=== PATIENT | female | born 1940 | race Caucasian/White ===

== ENCOUNTER 2019-12-24 10:43 | Emergency (ER) | payer MEDICARE, MEDICAID ==
[~2019-12-24] VITALS: Ht 161 cm; Wt 54.0 kg
[~2019-12-24 10:43] MED LIST: ALPR.25T PO; HYDR-34 PO; NITR-65 PO; SULF1TAB34 PO; TRM50T PO
--- OUTSIDE RECORDS SUMMARY | 2019-12-24 11:03 | XMS REPORT | Clinical Summary ---
Author Author [facility] Organization [facility] Address Unknown Phone Unavailable Care Team Providers Care Honing Machine Operator Semiautomatic Name Role Phone Charlie Knutson MD PCP Akhil Ford MD Unavailable Unavailable Source Comments Some departments are not documenting in the electronic medical record. If you d o not see the information that you expected, contact Release of Information in [facility] Information Management department at [phone] for further assistan ce in locating additional records.[facility] Allergies Comments Active Allergy Reactions Severity Noted Date Ciprofloxacin RASH Medium 06/05/2015 Cephalexin RASH Medium 06/05/2015 Lovastatin RASH Medium 06/05/2015 Niacin RASH Medium 06/05/2015 Budesonide-Formoterol UNKNOWN Low 06/05/20 15 Medications End Date Status Medication Sig Dispensed Refills Start Date Active HYDROcodone-acetaminophen Take 1 Tab by 0 (+) (LORTAB, NORCO) mouth every 6 10-325 mg tablet hours as needed for Pain Active traMADol (ULTRAM) 50 mg Take 50 mg by 0 tablet mouth every 6 hours as needed for Pain. Active ALPRAZolam (XANAX) 0.25 Take 0.25 mg 0 mg tablet by mouth at bedtime as needed. Active ONDANSETRON HCL (ZOFRAN Take by 0 PO) mouth as Needed. Active Problems No known active problems Family History Relation Name Status Comments Father Mother Social History Date Tobacco Use Types Packs/Day Years Used Current Every Day Smoker Drinks/Week oz/Week Comments Alcohol Use 0 Standard drinks or equivalent 0.0 Not Asked Sex Assigned at Date Recorded Not on file Industry Job Start Date Occupation Not on file Not on file Not on file Travel End Travel History Travel Start No recent travel history available. Last Filed Vital Signs Reading Time Taken Comments Vital Sign 143/67 06/05/2015 12:11 PM [employer] Blood Pressure 109 06/05/2015 12:11 PM [employer] Pulse - - Temperature 20 06/05/2015 12:11 PM [employer] Respiratory Rate 98% 06/05/2015 12:11 PM [employer] Oxygen Saturation - - Inhaled Oxygen Concentration 59 kg (130 lb) 06/05/2015 12:11 PM [employer] Weight 165.1 cm (5' 5") 06/05/2015 12:11 PM [employer] Height 21.63 06/05/2015 12:11 PM [employer] Body Mass Index Plan of Treatment Health Maintenance Due Date Last Done Comments MEDICARE ANNUAL WELLNESS 1942 VISIT DTAP/TDAP VACCINES (1 - 1960 Tdap) HEPATITIS C SCREENING 1960 PHYSICAL (COMPREHENSIVE) 1960 EXAM SHINGLES RECOMBINANT 1992 VACCINE (1 of 2) OSTEOPOROSIS 2007 SCREENING/MONITORING PNEUMONIA (PPSV23) 2007 VACCINE (1 of 1 - PPSV23) INFLUENZA VACCINE 04/05/2020 Results Not on filefrom Last 3 Months Insurance Type Payer Benefit Subscriber ID Effective Phone Address Plan / Dates Group Medicare MEDICARE MEDICARE xxxxxxxxxx 2007-P PART A AND [place] 2013-P [place], [place] [address] Advance Directives 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
--- OUTSIDE RECORDS SUMMARY | 2019-12-24 11:03 | XMS REPORT ---
Author Author [employer] br[employer] [facility] [employer] [facility] Address [address] [address] Care Team Providers Care Sustainability Director Name Role Phone NICKI ZAYAS Vani Unavailable Allergies The data below is from unstructured sources Allergen Type Severity Reaction Last Updated No Known Drug Allergies 01/23/13 Medications No Information Problems The data below is from unstructured sourcesNo Known Problems or Medical conditions.No Known Problems or Medical conditions.No Known Problems or Medical conditions. Procedures The data below is from unstructured sourcesNo known history of procedures. Immunizations No Information Results The data below is from unstructured sourcesNo Known Relevant Diagnostic Tests, Laboratory Data and/or Discharge Summary.No known relevant diagnostic tests, laboratory data and/or discharge summary.No known relevant diagnostic tests, laboratory data and/or discharge summary. Vital Signs The data below is from unstructured sources Vital Response Date/Time Temperature (Fahrenheit) 98 degrees F (97.6 - 99.5) Temperature (Calculated Celsius) 36. 6696 degrees C (36.4 - 37.5) Temperature Source Temporal Pulse Rate (adult) 82 bpm (60 - 90) Respiratory Rate 18 bpm (12 - 24) O2 Sat by Pulse Oximetry 98 % (88 - 100) Blood Pressure 133/77 mm Hg Blood Pressure Mean 95 mm Hg Pain Pain Intensity 0 Height (Feet) 5 feet Height (Inches) 4.00 inches Height (Calculated Centimeters) 162. 549343 cm Weight (Pounds) 125 pounds Weight (Calculated Grams) 21675.047 gm Weight (Calculated Kilograms) 56.699 047 kilograms Calculated BMI 21.09 Interventions No Information Plan of Treatment The data below is from unstructured sourcesNo plan of care. Goals No Information Social History The data below is from unstructured sources History Response Recorde d Date/Time Alcohol Use Denies Use 0 01/23/13 9:05pm Recreational Drug Use N 01/23/13 9:05pm Recent Foreign Travel N 01/23/13 9:05pm Recent Infectious Disease Exposure N 01/23/13 9:05pm Hospitalization with Isolation Denies 01/23/13 9:05pm Functional Status The data below is from unstructured sourcesNo functional status results. Mental Status No Information Encounters No Information Medical Equipment No Information Payers The data below is from unstructured sources Payer Name Policy Number Subscriber Name Relationship Medicaid [place] [id number] Leti Moran Self / Same As Patient Wps Medicare [id number] Leti Moran Self / Same As Patient Advance Directives Directive Response Recor ded Date Advance Directives N 9:05pm Directive Response Recor ded Date Advance Directives N 7:34am Health Care Power of Community Theater Actor N 04/01/13 7:34am Organ Donor N 04/01/13 7 :34am Directive Response Recor ded Date/Time Advance Directives No 4:08pm Health Care Power of Community Theater Actor No 02/04/15 4:08pm Organ Donor No 02/04/15 4:08pm Resuscitation Status Full Code 02/04/15 4:08pm Discharge Instructions No hospital discharge instructions. Additional Source Comments This clinical document has been generated using [employer] software that has been certified by the Office of the National Coordinator for Health Information Technology (ONC 15.99.04.3023.Diam.31.00.0.536781) and the National Committee for Public Health Engineer (NCQA, as an eMeasure certified technology). FOR RECORDS PERTAINING TO PATIENTS WHO ARE OR HAVE BEEN ENROLLED IN A CHEMICAL D EPENDENCY/SUBSTANCE ABUSE PROGRAM, SOME INFORMATION MAY BE OMITTED. This clinica l summary was aggregated from multiple sources. Caution should be exercised in using it in the provision of clinical care. This summary normalizes information from multiple sources, and as a consequence, information in this document may ma terially change the coding, format and clinical context of patient data. In sara tion, data may be omitted in some cases. CLINICAL DECISIONS SHOULD BE BASED ON T HE PRIMARY CLINICAL RECORDS. [employer] provides no warranty or guara ntee of the accuracy or completeness of information in this document.The followi ng information is based on time limited clinical information
--- OUTSIDE RECORDS SUMMARY | 2019-12-24 11:04 | XMS REPORT | Continuity of Care Document ---
Author Organization Unknown Address Unknown Phone Unavailable Allergies Active Description Code Type Severity Reaction Onset Reported/Identified Relationship to Patient Clinical Status Yes bacitracin [id number] Drug Allerg y Unknown HIVES 09/22/2013 Yes lidocaine [id number] Drug Allergy Unknown HIVES 09/22/2013 Yes neomycin [id number] Drug Allergy Unknown HIVES 09/22/2013 Yes polymyxin B [id number] Drug Aller gy Unknown HIVES 09/22/2013 Yes pramoxine [id number] Drug Allergy Unknown HIVES 09/22/2013 Medications There is no data. Problems Date Dx Coded Attending Type Code Diagnosis Diagnosed By 12/02/2014 RHIANNA BOWEN MD Ot V45.4 12/02/2014 RHIANNA BOWEN MD Ot V67.0 9 02/04/2015 HERSON HIGHTOWER MD Ot 682 .3 02/04/2015 HERSON HIGHTOWER MD Ot 989 .5 02/04/2015 HERSON HIGHTOWER MD Ot E000.8 02/04/2015 HERSON HIGHTOWER MD Ot E016.1 02/04/2015 HERSON HIGHTOWER MD Ot E849.0 02/04/2015 HERSON HIGHTOWER MD Ot E905.3 04/04/2015 NICKI ZAYAS MD Ot 723.0 04/23/2015 NICKI ZAYAS MD Ot 723.0 04/30/2015 NICKI ZAYAS MD Ot 723.0 Procedures There is no data. Results There is no data. Encounters ACCT No. Visit Date/Time Discharge Status Pt. Type Provider Facility Loc./Unit Complaint [id number] 07/18/2015 12:41:00 016 23:59:59 CLS Outpatient NICKI ZAYAS MD [facility] [id number] 03/30/2015 16:08:00 015 23:59:59 CLS Outpatient NICKI ZAYAS MD [facility] RAD [id number] 02/04/2015 14:24:00 015 17:34:00 DIS Emergency KATJA CORREA, HERSON Vogel [facility] ER [id number] 10/20/2014 13:55:00 015 23:59:59 CLS Outpatient JESSI CORREA, RHIANNA Cortes [facility] RAD [id number] 03/29/2014 12:08:00 014 23:59:59 CLS Outpatient [id number] 12/21/2013 12:57:00 014 23:59:59 CLS Outpatient [id number] 10/09/2013 09:33:00 014 12:08:00 DIS Emergency [id number] 10/03/2013 08:00:00 014 10:25:00 DIS Inpatient [id number] 09/22/2013 08:55:00 014 23:59:59 CLS Outpatient [id number] 09/02/2013 08:56:00 014 23:59:59 CLS Outpatient [id number] 08/10/2013 12:21:00 014 23:59:59 CLS Outpatient [id number] 08/03/2013 12:44:00 014 23:59:59 CLS Outpatient [id number] 08/01/2013 09:47:00 014 23:59:59 CLS Outpatient [id number] 07/26/2013 15:48:00 014 23:59:59 CLS Outpatient [id number] 04/01/2013 06:04:00 013 09:12:00 DIS Outpatient [id number] 03/30/2013 09:18:00 23:59:59 CLS Outpatient [id number] 03/30/2013 09:10:00 23:59:59 CLS Outpatient [id number] 03/23/2013 14:23:00 23:59:59 CLS Outpatient [id number] 02/16/2013 09:34:00 23:59:59 CLS Outpatient [id number] 02/14/2013 14:52:00 23:59:59 CLS Outpatient [id number] 01/23/2013 20:55:00 23:29:00 DIS Emergency [id number] 12/20/2012 09:50:00 23:59:59 CLS Outpatient
[2019-12-24] MEDS ORDERED: CEPH-507 PO (11:58)
--- NOTE | 2019-12-24 11:58 | ED Integumentary General ---
General Chief Complaint: Bite-Animal/Human/Insect Stated Complaint: WASP STING, R HAND Source: patient Exam Limitations: no limitations History of Present Illness Date Seen by Provider: Dec 24, 2019 Time Seen by Provider: 11:55 Initial Comments Stung by wasp to dorsum of right hand yesterday. Complains of pain swelling and redness to right hand and forearm. No fevers or chills. Allergies and Home Medications Allergies Coded Allergies: Neomycin (Unverified Allergy, Unknown, HIVES, 09/22/13) Polymyxin B (Unverified Allergy, Unknown, HIVES, 09/22/13) Pramoxine (Unverified Allergy, Unknown, HIVES, 09/22/13) bacitracin (Unverified Allergy, Unknown, HIVES, 09/22/13) lidocaine (Unverified Allergy, Unknown, HIVES, 09/22/13) Home Medications Alprazolam 0.25 Mg Tab, 0.25 MG PO TID, (Reported) Cephalexin 500 Mg Capsule, 500 MG PO TID Prescribed by: EDIE BOOTH on 12/24/19 1158 Hydrocodone Bit/Acetaminophen 1 Each Tablet, 1 EACH PO Q4H PRN, (Reported) PRN PAIN Sulfamethoxazole/Trimethoprim 1 Each Tablet, 1 TAB PO BID Prescribed by: HERSON HIGHTOWER on 02/04/15 1723 Tramadol Hcl 50 Mg Tab, 50-100 MG PO TID PRN for PAIN, (Reported) TAKES 1 OR 2 (50MG) TAB PRN PAIN Patient Home Medication List Home Medication List Reviewed: Yes Review of Systems Review of Systems Constitutional: No chills, No fever EENTM: no symptoms reported Respiratory: no symptoms reported Cardiovascular: no symptoms reported Gastrointestinal: no symptoms reported Skin: see HPI All Other Systems Reviewed Negative Unless Noted: Yes Past Sedpkfi-Yieyjz-Eyaiql Hx Immunizations Up To Date Tetanus Booster (TDap): Less than 5yrs Date of Influenza Vaccine: Apr 05, 2013 Seasonal Allergies Seasonal Allergies: No Past Medical History Emphysema Reproductive Disorders: No Kidney Stones, UTI-Chronic Arthritis, Fibromyalgia Cataract Hearing Impairment: Hard of Hearing Anxiety Adverse Reaction/Blood Tranf: No Family Medical History Cancer 03 FATHER 03 MOTHER 09 BROTHER 09 SISTER Cancer of colon 09 SISTER Congenital heart disease 09 BROTHER Family history: Arthritis 03 FATHER 03 MOTHER 09 BROTHER 09 SISTER Family history: Asthma 09 SISTER Family history: Diabetes mellitus 09 BROTHER Family history: Gastrointestinal disease 03 FATHER 09 BROTHER Family history: Hypertension 03 MOTHER 09 BROTHER Heart disease 03 MOTHER 09 BROTHER History of - respiratory disease 03 FATHER 03 MOTHER 09 BROTHER Myocardial infarction 03 MOTHER Prostate cancer 03 FATHER 09 BROTHER Stroke 03 MOTHER No Family History of: Abdominal aortic aneurysm Alcoholism Congestive heart failure Dementia Family history: Allergy Family history: Alzheimer's disease Family history: Breast disease Family history: Cardiovascular disease Family history: Thyroid disorder History of - anemia Kidney disease Parkinson's disease Seizure disorder Physical Exam Vital Signs Vital Signs - First Documented 12/24/19 10:50 Temp 36.6 Pulse 83 Resp 18 B/P (MAP) 158/61 (93) Pulse Ox 95 O2 Delivery Room Air Capillary Refill : General Appearance: WD/WN, no apparent distress Neck: supple Cardiovascular: regular rate, rhythm Respiratory: lungs clear Neurologic/Psychiatric: alert, normal mood/affect Skin: warm/dry Skin Problem Location: upper extremities Skin Problem Character: erythema Comments Tender red and swollen from dorsum of right hand to mid forearm. No streaking. No fevers or chills. Progress/Results/Core Measures Results/Orders My Orders Orders - EDIE BOOTH MD Ceftriaxone For Im Use (Rocephin For Im (12/24/19 12:00) Prednisone Tablet (Deltasone Tablet) (12/24/19 12:00) Water (Sterile) For Injection (Sterile W (12/24/19 12:11) Vital Signs/I&O 12/24/19 10:50 Temp 36.6 Pulse 83 Resp 18 B/P (MAP) 158/61 (93) Pulse Ox 95 O2 Delivery Room Air Progress Progress Note : Time: 11:56 Progress Note Suspect inflammatory localized reaction to wasp sting venom. We'll cover with Keflex for possible cellulitis. Advised to keep hand elevated as much as possible. Departure Impression Primary Impression: Insect bites Additional Impression: Cellulitis Disposition: 01 HOME, SELF-CARE Condition: Stable Departure-Patient Inst. Decision time for Depature: 11:57 Referrals: NICKI ZAYAS MD (PCP/Family) Primary Care Physician Patient Instructions: Insect Bites and Stings (DC) Scripts Cephalexin (Keflex) 500 Mg Capsule 500 MG PO TID for 21 Days, CAP Prov: EDIE BOOTH MD 12/24/19 EDIE BOOTH MD Dec 24, 2019 11:58
[2019-12-24] MEDS ORDERED: predniSONE 20 MG TAB PO ONE (12:00)
[2019-12-24] MEDS ORDERED: cefTRIAXone 1,000 MG/2.86 ml vial (IM ONLY) IM SCH (12:00)
[2019-12-24] MEDS ORDERED: WATER (STERILE) FOR INJECTION 10 ML ONE (12:11)
[2019-12-24 12:25] VITALS: BP 158/61
== END 2019-12-24 12:26 | disposition home or self-care (01) ==
LOC: EDUNIT# 10:43 → ER 10:44
DX: T63.461A Toxic effect of venom of wasps, accidental (unintentional), initial encounter (principal); L03.113 Cellulitis of right upper limb; F41.9 Anxiety disorder, unspecified; Z88.4 Allergy status to anesthetic agent; Z88.8 Allergy status to other drugs, medicaments and biological substances; Z80.0 Family history of malignant neoplasm of digestive organs; Z82.49 Family history of ischemic heart disease and other diseases of the circulatory system; Z80.42 Family history of malignant neoplasm of prostate
CPT/HCPCS: 99284

== ENCOUNTER 2021-07-24 18:44 | Inpatient (IN) | payer MEDICARE, MEDICAID ==
[~2021-07-24] VITALS: Ht 162.5 cm; Wt 46.8 kg
[~2021-07-24 18:44] MED LIST changes: +CEPH-507 PO
[2021-07-24] MEDS ORDERED: NS IV 1000 ML 1,000 ML IV SCH (19:00)
[2021-07-24 19:21] LABS: BASOPHILS % (AUTO) 0 % (0-10); EOSINOPHILS % (AUTO) 0 % (0-10); HEMATOCRIT 35 % (35-52); LYMPHOCYTES # (AUTO) 1.5 10^3/uL (1.0-4.0); LYMPHOCYTES % (AUTO) 8 % (12-44); MEAN CORPUSCULAR HEMOGLOBIN 31 pg (25-34); MEAN CORPUSCULAR HGB CONC 34 g/dL (32-36); MEAN CORPUSCULAR VOLUME 90 fL (80-99); MEAN PLATELET VOLUME 9.9 fL (9.0-12.2); MONOCYTES # (AUTO) 1.1 10^3/uL (0.0-1.0); MONOCYTES % (AUTO) 6 % (0-12); NEUTROPHILS # (AUTO) 16.7 10^3/uL (1.8-7.8); NEUTROPHILS % (AUTO) 86 % (42-75); PLATELET COUNT 467 10^3/uL (130-400); WHITE BLOOD COUNT 19.4 10^3/uL (4.3-11.0)
[2021-07-24 19:26] LABS: INR 1.2 (0.8-1.4); PROTHROMBIN TIME PATIENT 15.3 SEC (12.2-14.7)
[2021-07-24 19:27] LABS: ALBUMIN 3.6 GM/DL (3.2-4.5); POTASSIUM 3.6 MMOL/L (3.6-5.0)
[2021-07-24 19:28] LABS: CALCIUM 9.2 MG/DL (8.5-10.1)
[2021-07-24 19:29] LABS: TOTAL PROTEIN 7.7 GM/DL (6.4-8.2)
[2021-07-24 19:31] LABS: BILIRUBIN,TOTAL 0.8 MG/DL (0.1-1.0)
[2021-07-24 19:33] LABS: CREATININE SERUM 0.64 MG/DL (0.60-1.30)
[2021-07-24 19:41] LABS: LYMPHOCYTES % (MANUAL) 8 %; MONOCYTES % (MANUAL) 8 %; NEUTROPHILS % (MANUAL) 84 %
[2021-07-24 19:42] LABS: RBC MORPH NORMAL
--- NOTE | 2021-07-24 20:10 | Diagnostic Imaging Report ---
INDICATION: Shortness of breath. COMPARISON: None. EXAMINATION: Single view of the chest. FINDINGS: Probable infiltrate developing in the right base. Left lung is clear. The heart is normal. There is no pneumothorax but osseous structures are normal. IMPRESSION: Suspect developing pneumonia in right lower lobe. Dictated by: Dictated on workstation # [id number]
--- NOTE | 2021-07-24 20:33 | ED General ---
General Chief Complaint: COVID19 Suspect/Confirmed Stated Complaint: BURNING WITH URINATION Nursing Triage Note: PT TO [facility] BY [facility] FROM HOME WITH COMPLAINT OF SOA, WEAKNESS, INCONTINENT, CLOGGED NOSE FOR TWO WEEKS. Source of Information: Patient, EMS, Family (sister) Exam Limitations: Physical Impairments History of Present Illness Date Seen by Provider: Jul 24, 2021 Time Seen by Provider: 18:40 Initial Comments Patient is a 80-year-old female who presents to the emergency department today with a chief complaint of cough, generalized fatigue malaise, a little shortness of breath. Her nephew apparently called the ambulance at the direction of her niece today. Her cough has been going on for about 2 weeks, intermittently productive, she does not really know what it looks like. She is a smoker. She has had a COVID-vaccine sometime prior to [facility]. She has not really been taking anything for the cough. She does state that she has had a little burning with urination. She is a poor historian secondary to fatigue/malaise. She talks to me with her eyes closed. She does not take any significant prescribed medications other than the hydrocodone and Xanax for anxiety. She is a patient of [facility] clinic, Dr. Fox. Her niece reports her most recent visit was July 14. room air sats 87-88% on arrival Patient lives alone. She continues to drive. She denies abdominal pain, nausea vomiting or diarrhea. She does have what she thinks is her "rectum falling out" versus hemorrhoids. Her sister states she has been using hemorrhoid pads to clean herself. Unknown how long this has been there Sister reports she is lost a significant amount of weight recently. All other review of systems reviewed and negative except as stated Timing/Duration: Other (2 weeks) Associated Systoms: Cough, Loss of Appetite, Malaise, Weakness Allergies and Home Medications Allergies Coded Allergies: bacitracin (Unverified Allergy, Unknown, HIVES, 09/22/13) lidocaine (Unverified Allergy, Unknown, HIVES, 09/22/13) neomycin (Unverified Allergy, Unknown, HIVES, 09/22/13) polymyxin B (Unverified Allergy, Unknown, HIVES, 09/22/13) pramoxine (Unverified Allergy, Unknown, HIVES, 09/22/13) Patient Home Medication List Home Medication List Reviewed: Yes Alprazolam (Alprazolam) 0.5 Mg Tablet, 0.5 MG PO TID PRN for ANXIETY, (Reported) Entered as Reported by: MELISA HYDE on 07/25/211105 Last Action: Reviewed Hydrocodone/Acetaminophen (Hydrocodone-Acetamin 7.5-325) 1 Each Tablet, 1 EA PO EVERY 3 HOURS PRN for PAIN-MODERATE (5-7), (Reported) Entered as Reported by: MELISA HYDE on 07/25/211105 Last Action: Reviewed Discontinued Medications Alprazolam (Xanax Tablet) 0.25 Mg Tab, 0.25 MG PO TID, (Reported) Discontinued Reason: Referral/FU Appt-Addtl Entered as Reported by: NASIM RESENDEZ on 01/23/132111 Last Action: Discontinued Cephalexin (Keflex) 500 Mg Capsule, 500 MG PO TID Discontinued Reason: Referral/FU Appt-Addtl Prescribed by: EDIE BOOTH on 12/24/19 1158 Last Action: Discontinued Hydrocodone Bit/Acetaminophen (Lortab 7.5 Mg Tablet) 1 Each Tablet, 1 EACH PO Q4H PRN, (Reported) Discontinued Reason: Referral/FU Appt-Addtl Entered as Reported by: NASIM RESENDEZ on 01/23/132111 Last Action: Discontinued Sulfamethoxazole/Trimethoprim (Bactrim 400-80 Mg Tablet) 1 Each Tablet, 1 TAB PO BID Discontinued Reason: Referral/FU Appt-Addtl Prescribed by: HERSON HIGHTOWER on 02/04/15 1723 Last Action: Discontinued Tramadol Hcl (Ultram) 50 Mg Tab, 50-100 MG PO TID PRN for PAIN, (Reported) Discontinued Reason: Referral/FU Appt-Addtl Entered as Reported by: NASIM RESENDEZ on 01/23/132111 Last Action: Discontinued Review of Systems Review of Systems Constitutional: see HPI, malaise, weakness EENTM: no symptoms reported Respiratory: cough, short of breath Cardiovascular: no symptoms reported Gastrointestinal: other (sister reports "rectum falling out" or hemmorhoids "for a while") Genitourinary: dysuria : No Musculoskeletal: other (chronic back pain) Skin: other (sister reports "bed sores") All Other Systems Reviewed Negative Unless Noted: Yes Past Bkcmagx-Bbnjod-Jcdboc Hx Patient Social History Tobacco Use?: Yes Tobacco type used: Cigarettes Smoking Status: Current Everyday Smoker Use of E-Cig and/or Vaping dev: No Substance use?: No Alcohol Use?: No Pt feels they are or have been: No Immunizations Up To Date Tetanus Booster (TDap): Less than 5yrs First/Initial COVID19 Vaccinat: SPRING 2020 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: [employer] Seasonal Allergies Seasonal Allergies: No Past Medical History Emphysema Reproductive Disorders: No Kidney Stones, UTI-Chronic Arthritis, Fibromyalgia Cataract Hearing Impairment: Hard of Hearing Anxiety Adverse Reaction/Blood Tranf: No Family Medical History Cancer 03 FATHER 03 MOTHER 09 BROTHER 09 SISTER Cancer of colon 09 SISTER Congenital heart disease 09 BROTHER Family history: Arthritis 03 FATHER 03 MOTHER 09 BROTHER 09 SISTER Family history: Asthma 09 SISTER Family history: Diabetes mellitus 09 BROTHER Family history: Gastrointestinal disease 03 FATHER 09 BROTHER Family history: Hypertension 03 MOTHER 09 BROTHER Heart disease 03 MOTHER 09 BROTHER History of - respiratory disease 03 FATHER 03 MOTHER 09 BROTHER Myocardial infarction 03 MOTHER Prostate cancer 03 FATHER 09 BROTHER Stroke 03 MOTHER No Family History of: Abdominal aortic aneurysm Alcoholism Congestive heart failure Dementia Family history: Allergy Family history: Alzheimer's disease Family history: Breast disease Family history: Cardiovascular disease Family history: Thyroid disorder History of - anemia Kidney disease Parkinson's disease Seizure disorder Physical Exam Vital Signs Vital Signs - First Documented 07/24/21 18:47 Pulse 87 Resp 16 B/P (MAP) 127/71 (89) Pulse Ox 97 O2 Delivery Nasal Cannula O2 Flow Rate 2.00 Capillary Refill : Less Than 3 Seconds Height, Weight, BMI Height: 5'4.00" Weight: 125lbs. oz. 56.277022yd; 17.00 BMI Method:Stated General Appearance: Chronically ill, Cachetic Eyes: Bilateral Eye Other (speaks to me with eyes closed; appears somnolent/ill) HEENT: Other (mucous membranes a little dry appearing; edentulous) Neck: Supple Respiratory: Chest Non Tender, No Accessory Muscle Use, No Respiratory Distress, Other (coarse wet cough; no wheezing or ronchi noted. no labored breathing) Cardiovascular: Regular Rate, Rhythm, Normal Peripheral Pulses, Other (cap refill is 2sec; poor skin turgor) Gastrointestinal: Normal Bowel Sounds, Non Tender, Soft Rectal: Other (patient has a large fleshy mass hanging out of the rectum, slightly smaller than a golf ball; bloody, irregular surface, firm to touch. I can get a finger anteriorly past this mass) Extremity: Normal Capillary Refill, Normal Inspection, Normal Range of Motion, Non Tender, No Pedal Edema Neurologic/Psychiatric: Alert, Oriented x3, No Motor/Sensory Deficits, Other (d epressed affect) Skin: Normal Color, Warm/Dry, Other (a couple of small areas of erythema on the sacrum, no open wounds) Focused Exam Lactate Level 07/24/21 19:14: Lactic Acid Level 0.90 Lactic Acid Level Laboratory Tests Test 07/24/21 19:14 Lactic Acid Level 0.90 MMOL/L (0.50-2.00) Progress/Results/Core Measures Suspected Sepsis SIRS Temperature: Pulse: 87 Respiratory Rate: 16 Blood Pressure 127 /71 Mean: 89 07/24/21 19:14: Lactic Acid Level 0.90 Laboratory Tests 07/24/21 18:50: INR Comment 1.2 Results/Orders Lab Results Laboratory Tests Test 07/24/21 18:50 07/24/21 19:14 07/24/21 20:21 Range/Units White Blood Count 19.4 H 4.3-11.0 10^3/uL Red Blood Count 3.91 3.80-5.11 10^6/uL Hemoglobin 12.0 11.5-16.0 g/dL Hematocrit 35 35-52 % Mean Corpuscular Volume 90 80-99 fL Mean Corpuscular Hemoglobin 31 25-34 pg Mean Corpuscular Hemoglobin Concent 34 32-36 g/dL Red Cell Distribution Width 12.6 10.0-14.5 % Platelet Count 467 H 130-400 10^3/uL Mean Platelet Volume 9.9 9.0-12.2 fL Immature Granulocyte % (Auto) 0 % Neutrophils (%) (Auto) 86 H 42-75 % Lymphocytes (%) (Auto) 8 L 12-44 % Monocytes (%) (Auto) 6 0-12 % Eosinophils (%) (Auto) 0 0-10 % Basophils (%) (Auto) 0 0-10 % Neutrophils # (Auto) 16.7 H 1.8-7.8 10^3/uL Lymphocytes # (Auto) 1.5 1.0-4.0 10^3/uL Monocytes # (Auto) 1.1 H 0.0-1.0 10^3/uL Eosinophils # (Auto) 0.0 0.0-0.3 10^3/uL Basophils # (Auto) 0.0 0.0-0.1 10^3/uL Immature Granulocyte # (Auto) 0.1 0.0-0.1 10^3/uL Neutrophils % (Manual) 84 % Lymphocytes % (Manual) 8 % Monocytes % (Manual) 8 % Blood Morphology Comment NORMAL Prothrombin Time 15.3 H 12.2-14.7 SEC INR Comment 1.2 0.8-1.4 Activated Partial Thromboplast Time 39 H 24-35 SEC Sodium Level 133 L 135-145 MMOL/L Potassium Level 3.6 3.6-5.0 MMOL/L Chloride Level 94 L 98-107 MMOL/L Carbon Dioxide Level 23 21-32 MMOL/L Anion Gap 16 H 5-14 MMOL/L Blood Urea Nitrogen 11 7-18 MG/DL Creatinine 0.64 0.60-1.30 MG/DL Estimat Glomerular Filtration Rate 90 BUN/Creatinine Ratio 17 Glucose Level 121 H 70-105 MG/DL Calcium Level 9.2 8.5-10.1 MG/DL Corrected Calcium 9.5 8.5-10.1 MG/DL Total Bilirubin 0.8 0.1-1.0 MG/DL Aspartate Amino Transf (AST/SGOT) 13 5-34 U/L Alanine Aminotransferase (ALT/SGPT) 8 0-55 U/L Alkaline Phosphatase 88 40-136 U/L C-Reactive Protein High Sensitivity 24.48 H 0.00-0.50 MG/DL Total Protein 7.7 6.4-8.2 GM/DL Albumin 3.6 3.2-4.5 GM/DL Procalcitonin 0.07 <0.10 NG/ML Influenza Type A (RT-PCR) Not Detected Not Detecte Influenza Type B (RT-PCR) Not Detected Not Detecte SARS-CoV-2 RNA (RT-PCR) Not Detected Not Detecte Lactic Acid Level 0.90 0.50-2.00 MMOL/L Urine Color YELLOW Urine Clarity CLEAR Urine pH 6.0 5-9 Urine Specific Sunburst 1.015 L 1.016-1.022 Urine Protein NEGATIVE NEGATIVE Urine Glucose (UA) NEGATIVE NEGATIVE Urine Ketones TRACE H NEGATIVE Urine Nitrite POSITIVE H NEGATIVE Urine Bilirubin NEGATIVE NEGATIVE Urine Urobilinogen 0.2 < = 1.0 MG/DL Urine Leukocyte Esterase TRACE H NEGATIVE Urine RBC (Auto) TRACE-I H NEGATIVE Urine RBC NONE /HPF Urine WBC 0-2 /HPF Urine Squamous Epithelial Cells NONE /HPF Urine Renal Epithelial Cells NONE /HPF Urine Crystals NONE /LPF Urine Bacteria LARGE H /HPF Urine Casts NONE /LPF Urine Mucus NEGATIVE /LPF Urine Yeast LARGE H /HPF Urine Culture Indicated YES Micro Results Microbiology 07/24/21 Urine Culture - Final, Complete Klebsiella pneumoniae 07/24/21 Blood Culture - Preliminary, Resulted No growth My Orders Orders - VANDANA BULL MD Cbc With Automated Diff (07/24/21 18:56) Comprehensive Metabolic Panel (07/24/21 18:56) Blood Culture (07/24/21 18:56) Sputum Culture (07/24/21 18:56) Urinalysis (07/24/21 18:56) Urine Culture (07/24/21 18:56) Protime With Inr (07/24/21 18:56) Partial Thromboplastin Time (07/24/21 18:56) Chest 1 View, Ap/Pa Only (07/24/21 18:56) Ed Iv/Invasive Line Start (07/24/21 18:56) Ed Iv/Invasive Line Start (07/24/21 18:56) Vital Signs Adult Sepsis Patie Q15M (07/24/21 18:56) O2 (07/24/21 18:56) Remove Rings In Anticipation O (07/24/21 18:56) Lactic Acid Analyzer (07/24/21 18:56) Procalcitonin (Pct) (07/24/21 18:56) Hs C Reactive Protein (07/24/21 18:56) Covid 19 Inhouse Test (07/24/21 18:56) Influenza A And B By Pcr (07/24/21 18:56) Isolation Central Supply Req (07/24/21 18:56) Ns Iv 1000 Ml (Sodium Chloride 0.9%) (07/24/21 19:00) Manual Differential (07/24/21 18:50) Diaz Cath (07/24/21 20:28) Ceftriaxone 1 Gm Pre-Mix (Rocephin 1 Gm (07/24/21 20:45) Azithromycin Injection (Zithromax Inject (07/24/21 20:45) Ed Admission (Communication) (07/24/21 21:26) Vital Signs/I&O 07/24/21 07/24/21 18:47 19:00 Pulse 87 Resp 16 B/P (MAP) 127/71 (89) Pulse Ox 97 O2 Delivery Nasal Cannula Nasal Cannula O2 Flow Rate 2.00 2.00 Capillary Refill : Less Than 3 Seconds Blood Pressure Mean: 89 Diagnostic Imaging Diagonstic Imaging: Xray Plain Films/CT/US/NM/MRI: chest Comments [facility], [place] NAME: GIOVANNI ESCOBEDO [facility] REC#: [id number] PT STATUS: REG ER : 1940 PHYSICIAN: VANDANA BULL MD ADMIT DATE: 07/24/21/ER Signed Date of Exam:07/24/21 CHEST 1 VIEW, AP/PA ONLY INDICATION: Shortness of breath. COMPARISON: None. EXAMINATION: Single view of the chest. FINDINGS: Probable infiltrate developing in the right base. Left lung is clear. The heart is normal. There is no pneumothorax but osseous structures are normal. IMPRESSION: Suspect developing pneumonia in right lower lobe. Dictated by: Dictated on workstation # [id number] Dict: 07/24/211955 Trans: 07/24/212009 [id number] Interpreted by: SANDEEP BROOKS Electronically signed by: SANDEEP BROOKS 07/24/212009 Departure Communication (Admissions) Time/Spoke to Admitting Phy: 21:[address] Valencia Time/Spoke to Consulting Phy: 21:[address] Barba, clear liquids until 2am, then NPO; would like CT Abd/pelvis with IV contrast in am Impression Primary Impression: Community acquired pneumonia Qualified Codes: J18.9 - Pneumonia, unspecified organism Additional Impressions: UTI (urinary tract infection) Qualified Codes: N30.00 - Acute cystitis without hematuria Rectal mass Disposition: ADMITTED INPATIENT Condition: Stable Admissions Decision to Admit Reason: Admit from ER (General) Decision to Admit/Date: Jul 24, 2021 Time/Decision to Admit Time: 21:26 Departure-Patient Inst. Referrals: NICKI ZAYAS MD (PCP/Family) Primary Care Physician Copy Copies To 1: MELISA FOX KATHRYN M MD Jul 24, 2021 20:33
[2021-07-24 20:35] LABS: BILIRUBIN,URINE NEGATIVE (NEGATIVE); CLARITY,URINE CLEAR; COLOR,URINE YELLOW; GLUCOSE, URINE (UA) NEGATIVE (NEGATIVE); KETONES,URINE TRACE (NEGATIVE); LEUKOCYTE ESTERASE ,URINE TRACE (NEGATIVE); NITRITE,URINE POSITIVE (NEGATIVE); PROTEIN,URINE NEGATIVE (NEGATIVE)
[2021-07-24] MEDS ORDERED: cefTRIAXone 1 GM PRE-MIX 50 ML IV ONE (20:45)
[2021-07-24] MEDS ORDERED: AZITHROMYCIN INJECTION 500 MG in NS (IVPB) 250 ML IV ONE (20:45)
[2021-07-24 20:48] LABS: WBC,URINE 0-2 /HPF
[2021-07-24 20:51] LABS: BACTERIA,URINE LARGE /HPF
[2021-07-24 20:52] LABS: YEAST,URINE LARGE /HPF
--- NOTE | 2021-07-24 22:25 | CONSULTATION REPORT ---
DATE OF SERVICE: ATTENDING PRIMARY CARE PHYSICIAN: Dr. Charlie Knutson. ADMITTING PHYSICIAN: Dr. Viry Valenica. HISTORY OF PRESENT ILLNESS: The patient is a 80-year-old female, who presented to the Emergency Department by EMS after family had seen her at her home and she complained of cough as well as shortness of breath. She states that she has had a cough for approximately two weeks with intermittent productivity of some sputum. She does have a history of smoking as well as COPD. She did have a COVID vaccine prior to Thanksgiving with the Abbe and Abbe regimen. She did have a chest x-ray performed, which did show consolidation consistent with a right lower lobe pneumonia. On further examination, she was found to have an exophytic mass of the anus a few centimeters in size, which appeared irritated; however, no bleeding. She states that she has had issues with hemorrhoids and felt that this was worsening of her hemorrhoids and reports that has been continuous wetness and drainage and pain and has been using pads more recently. She did have a colonoscopy in 2012 after developing abdominal pain and a CT scan was performed, which did show some thickening of the transverse and descending colon, which may have been consistent with some form of colitis and she underwent a colonoscopy in 03/2013, which did show chronic stage II external and internal hemorrhoids; however, no mucosal inflammatory changes as well as no neoplasms. She does have a strong family history for cancers with her mother having breast cancer and a father as well as two sisters with colon cancer and another sister with ovarian cancer. She does report intermittent red blood per rectum rectal bleeding, no dark tarry stools. PAST MEDICAL HISTORY: COPD, chronic urinary tract infection, fibromyalgia, degenerative joint disease, nephrolithiasis, bilateral cataracts, anxiety, peptic ulcer disease. PAST SURGICAL HISTORY: Open appendectomy in 81, total hysterectomy in 84, bilateral breast biopsy, laparoscopic cholecystectomy in 90s. ALLERGIES: NEOMYCIN, POLYMYXIN B, PRAMOXINE, BACITRACIN, LIDOCAINE. MEDICATIONS: Alprazolam 0.25 mg t.i.d., Keflex 500 mg t.i.d., hydrocodone p.r.n., Bactrim b.i.d., tramadol p.r.n. SOCIAL HISTORY: Positive smoke 45 pack years. Negative alcohol. FAMILY HISTORY: Mother, breast cancer. Father, two sisters, colon cancer. Sister, ovarian cancer. VITAL SIGNS: Blood pressure 127/71, pulse 87, respirations 16, pulse ox 97% on 2 liters nasal cannula. REVIEW OF SYSTEMS: This is a slightly thin-appearing female with some cough and exertional shortness of breath. She is experiencing some intermittent sputum production. No hemoptysis. No nausea or vomiting. States that she has been having bowel movements; however, has had irritation in the anal region with a constant wetness, which she felt was worsening hemorrhoids. She does report intermittent red blood per rectum, no dark tarry stools. No fever, chills, no recent inadvertent weight loss. All other review of systems negative. PHYSICAL EXAMINATION: CHEST: Distant breath sounds and scattered wheezes bilaterally. Decreased breath sounds at right lower lung. HEART: Regular, no murmurs. EXTREMITIES: No lower extremity edema, negative Homans sign. HEENT: No scleral icterus. NECK: No cervical lymphadenopathy. ABDOMEN: Soft, nontender, nondistended. No hernias. 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 LABORATORY DATA: WBC 19.4, hemoglobin 12.0, hematocrit 35, platelets 467. BUN 11, creatinine 0.64. Liver function enzymes normal. Urinalysis, positive nitrite, trace leukocyte esterase, large bacteria, and large yeast. ASSESSMENT AND PLAN: A 80-year-old female with right lower lobe pneumonia and exacerbation of COPD. 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 We will get a biopsy of the lesion as well as a colonoscopy to evaluate the entirety of her rectum and colon due to the lesion as well as a strong family history of colon, breast as well as ovarian cancer. If this is an anal canal cancer, she would likely need the William protocol with chemotherapy and radiation. If there is an incomplete response to the William protocol, she may be a candidate for a repeat round of chemotherapy and radiation, however, again if the lesion persists, then she may require an abdominoperineal resection however appears to be a poor surgical candidate. Job ID: [id number] DocumentID: [id number] Dictated Date: 07/24/2021 21:44:57 Dock Loader Date: 07/24/2021 22:22:31 Dictated By: SELENE GUERIN MD MTDD
[2021-07-24] MEDS ORDERED: diphenhydrAMINE 25 MG TAB (BENADRYL) PO PRN (22:30)
[2021-07-24] MEDS ORDERED: BISACODYL 10 MG SUPP (DULCOLAX) PR PRN (22:30)
[2021-07-24] MEDS ORDERED: ANTACID SUSP 30 ML UDC (MYLANTA) PO PRN (22:30)
[2021-07-24] MEDS ORDERED: polyethylene glycoL POWDER 17 GM (MIRALAX) PACK PO PRN (22:30)
[2021-07-24] MEDS ORDERED: MELATONIN 3 MG TABLET PO PRN (22:30)
[2021-07-24] MEDS ORDERED: HALOPERIDOL 5 MG/ML (HALDOL) VIAL IM PRN (22:30)
[2021-07-24] MEDS ORDERED: ACETAMINOPHEN 325 MG TABLET PO PRN (22:30)
[2021-07-24] MEDS ORDERED: morphine INJ 4 MG/ML 1 ML (VIAL/SYRINGE) IV PRN (22:30)
[2021-07-24] MEDS ORDERED: CALCIUM CARBONATE 500 MG (TUMS) TAB.CHEW PO PRN (22:30)
[2021-07-24] MEDS ORDERED: ONDANSETRON 4 MG/2 ML (SDV) Z0FRAN IV PRN (22:30)
[2021-07-24] MEDS ORDERED: guaiFENesin/CODEINE (ROBITUSSIN AC) 10ML UDC PO PRN (22:30)
[2021-07-24] MEDS ORDERED: ONDANSETRON 4 MG (ZOFRAN) ORAL DISSOLVE TAB PO PRN (22:30)
[2021-07-24] MEDS ORDERED: LORazepam INJ 2 MG/ML (ATIVAN) VIAL IVP PRN (22:30)
[2021-07-24] MEDS ORDERED: MILK OF MAGNESIA 400 MG/5 ML 30 ML UDC PO PRN (22:30)
[2021-07-24] MEDS ORDERED: WATER (STERILE) FOR INJ 10 ML BTL INJ SCH (22:30)
[2021-07-24] MEDS ORDERED: NALOXONE 0.4 MG/ML 1 ML (NARCAN) VIAL IV PRN (22:30)
[2021-07-24] MEDS ORDERED: diphenhydrAMINE 50 MG/ML INJ (BENADRYL) IVP PRN (22:30)
[2021-07-24] MEDS ORDERED: LACTULOSE SYRUP 10GM/15ML (ENULOSE) 30ML UDC PO PRN (22:30)
[2021-07-24] MEDS ORDERED: ZIPRASIDONE 20 MG INJ (GEODON) VIAL IM PRN (22:30)
[2021-07-24 22:42] VITALS: BP 114/57
[2021-07-24] MEDS: NS IV 1000 ML 1,000 ML IV SCH (22:47)
[2021-07-25] VITALS (10 sets, daily range): BP systolic 115–133; BP diastolic 57–66
[2021-07-25 05:44] LABS: BASOPHILS % (AUTO) 0 % (0-10); EOSINOPHILS % (AUTO) 0 % (0-10); HEMATOCRIT 34 % (35-52); HEMOGLOBIN 11.3 g/dL (11.5-16.0); LYMPHOCYTES # (AUTO) 1.9 10^3/uL (1.0-4.0); LYMPHOCYTES % (AUTO) 12 % (12-44); MEAN CORPUSCULAR HEMOGLOBIN 31 pg (25-34); MEAN CORPUSCULAR HGB CONC 34 g/dL (32-36); MEAN CORPUSCULAR VOLUME 91 fL (80-99); MEAN PLATELET VOLUME 9.5 fL (9.0-12.2); MONOCYTES % (AUTO) 7 % (0-12); NEUTROPHILS # (AUTO) 12.6 10^3/uL (1.8-7.8); NEUTROPHILS % (AUTO) 81 % (42-75); PLATELET COUNT 417 10^3/uL (130-400); WHITE BLOOD COUNT 15.6 10^3/uL (4.3-11.0)
[2021-07-25 06:16] LABS: ALBUMIN 3.2 GM/DL (3.2-4.5)
[2021-07-25 06:17] LABS: POTASSIUM 3.2 MMOL/L (3.6-5.0)
[2021-07-25 06:18] LABS: CALCIUM 8.6 MG/DL (8.5-10.1)
[2021-07-25 06:19] LABS: TOTAL PROTEIN 6.6 GM/DL (6.4-8.2)
[2021-07-25 06:21] LABS: BILIRUBIN,TOTAL 0.6 MG/DL (0.1-1.0)
[2021-07-25 06:23] LABS: CREATININE SERUM 0.57 MG/DL (0.60-1.30)
[2021-07-25] MEDS: cefTRIAXone 1 GM PRE-MIX 50 ML IV SCH (08:39)
[2021-07-25] MEDS: DOCUSATE SODIUM 100 MG (COLACE) CAP PO SCH ×2 (08:40→21:05)
[2021-07-25] MEDS: SENNOSIDES 8.6 MG (SENOKOT) TAB PO SCH ×2 (08:40→21:05)
[2021-07-25] MEDS: ENOXAPARIN 30 MG/0.3 ML (LOVENOX) SYR SC SCH (08:41)
[2021-07-25] MEDS: BENZONATATE 100 MG (TESSALON) CAPSULE PO SCH ×3 (08:41→21:05)
[2021-07-25] MEDS ORDERED: ALPR0.5T7 PO (11:06)
[2021-07-25] MEDS ORDERED: HYDR-3817 PO (11:06)
[2021-07-25] MEDS ORDERED: LACTATED RINGERS 1,000 ML IV PRN (11:45)
[2021-07-25] MEDS ORDERED: BUPIVACAINE 0.5% 30 ML (SENSORCAINE) VIAL ONE (11:48)
[2021-07-25] MEDS ORDERED: ONDANSETRON 4 MG/2 ML (SDV) Z0FRAN ONE (11:56)
[2021-07-25] MEDS ORDERED: MIDAZOLAM 2 MG/2 ML (VERSED) VIAL ONE (11:56)
[2021-07-25] MEDS ORDERED: proPOfol 200 MG/20 ML (DIPRIVAN) VIAL IV ONE (11:56)
[2021-07-25] MEDS ORDERED: LIDOCAINE PF 2% 5 ML (XYLOCAINE) VIAL ONE (11:56)
[2021-07-25] MEDS ORDERED: fentaNYL INJ 100 MCG/2 ML AMP ONE (11:56)
--- NOTE | 2021-07-25 11:56 | Progress Note-Pre Operative ---
Pre-Operative Progress Note H&P Reviewed The H&P was reviewed, patient examined and no changes noted. Date Seen by Provider: Jul 25, 2021 Time Seen by Provider: 10:00 Date H&P Reviewed: Jul 25, 2021 Time H&P Reviewed: 10:00 Pre-Operative Diagnosis: sx anal mass SELENE GUERIN MD Jul 25, 2021 11:56
--- NOTE | 2021-07-25 13:00 | Progress Note-Post Operative ---
Post-Operative Progess Note Surgeon (s)/Electronic Warfare Linguist (s) Surgeon SELENE GUERIN MD Electronic Warfare Linguist: sravani johnson [employer]DEL [employer] Pre-Operative Diagnosis sx anal mass Post-Operative Diagnosis rectal prolapse with large rectal mucosal mass(3cm) Procedure & Operative Findings Date of Procedure 07/25/21 Procedure Performed/Findings anal exam under anesthesia, pudendal nerve block. transanal excision rectal neoplasm (3cm), submucosal injection. Anesthesia Type mac with local Estimated Blood Loss Estimated blood loss (mL): minimal Specimens/Packing Specimens Removed rectal mass SELENE GUERIN MD Jul 25, 2021 13:00
--- NOTE | 2021-07-25 13:03 | History & Physical-Hospitalist ---
BRANDI CHEN 07/25/21 1303: History of Present Illness HPI/Chief Complaint Leti Moran is a 80 year old white female who presented to the ED by her fa sury with shortness of breath, malaise, burning with urination, and a rectal mass. Two weeks ago the patient began experiencing an intermittent productive cough. Patient's younger sister reports patient has had rectal mass for approximately 2 years. She states she thought it was a hemorrhoid and used hemorrhoid wipes without symptom improvement. There is pain associated with the mass; she states it is painful to sit or lay on her back with pressure on her perianal region. Patient reports bleeding associated with the rectal mass. Patient has an extensive family history of cancer, including colon and ovarian. At the time of encounter this morning, witnessed patient move from her chair to her bed. She appears unsteady and requires assistance. She is frail, thin, and has pallor of skin. Patient was drifting in and out of sleep during the encounter. Vitals are stable. Patient expresses dislike for nasal cannula. K: 3.2 Cr: 0.57 WBC 15.6 Platelets: 417 UA: WBC 0-2 CXR: Suspect right lower lobe developing pneumonia Source: patient, family (younger sister), EMS notes reviewed Exam Limitations: no limitations Date Seen 07/25/21 Time Seen by a Provider: 11:30 Attending Physician Viry De La O Rick D MD Referring Physician Date of Admission Jul 24, 2021 at 21:27 Home Medications & Allergies Home Medications Reviewed patient Home Medication Reconciliation performed by pharmacy medication reconciliations photocopier technician and/or nursing. Patients Allergies have been reviewed. Allergies Allergies Coded Allergies bacitracin (Unverified Allergy, Unknown, HIVES, 09/22/13) lidocaine (Unverified Allergy, Unknown, HIVES, 09/22/13) neomycin (Unverified Allergy, Unknown, HIVES, 09/22/13) polymyxin B (Unverified Allergy, Unknown, HIVES, 09/22/13) pramoxine (Unverified Allergy, Unknown, HIVES, 09/22/13) Past Ntztswy-Ibffse-Nzbejl Hx Patient Social History Marrital Status: single (lives alone) Employed/Student: retired ([employer]) Tobacco Use?: Yes Tobacco type used: Cigarettes Smoking Status: Current Everyday Smoker Use of E-Cig and/or Vaping dev: No Substance use?: No Alcohol Use?: No Pt feels they are or have been: No Immunizations Up To Date Date of Influenza Vaccine: Apr 05, 2020 First/Initial COVID19 Vaccinat: SPRING 2020 Second COVID19 Vaccination Mikey: SPRING 2020 Seasonal Allergies Seasonal Allergies: No Current Status status: No status: No Advance Directives: No Communicates: Verbally Primary Language: Faroese Preferred Spoken Language: Faroese Is interpretation needed?: No Sensory deficits: Hearing impairment Implanted or Applied Medical D: None Past Medical History Surgeries: Appendectomy, Breast (bilateral biopsy), Gallbladder, Hysterectomy (total) 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, 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 Kidney Stones, UTI-Chronic Arthritis, Fibromyalgia Cataract Hearing Impairment: Hard of Hearing Anxiety Adverse Reaction/Blood Tranf: No Family Medical History Cancer 03 FATHER 03 MOTHER 09 BROTHER 09 SISTER Cancer of colon 09 SISTER Congenital heart disease 09 BROTHER Family history: Arthritis 03 FATHER 03 MOTHER 09 BROTHER 09 SISTER Family history: Asthma 09 SISTER Family history: Diabetes mellitus 09 BROTHER Family history: Gastrointestinal disease 03 FATHER 09 BROTHER Family history: Hypertension 03 MOTHER 09 BROTHER Heart disease 03 MOTHER 09 BROTHER History of - respiratory disease 03 FATHER 03 MOTHER 09 BROTHER Myocardial infarction 03 MOTHER Prostate cancer 03 FATHER 09 BROTHER Stroke 03 MOTHER No Family History of: Abdominal aortic aneurysm Alcoholism Congestive heart failure Dementia Family history: Allergy Family history: Alzheimer's disease Family history: Breast disease Family history: Cardiovascular disease Family history: Thyroid disorder History of - anemia Kidney disease Parkinson's disease Seizure disorder Cancer (noted above) Review of Systems Respiratory: cough, phlegm; No short of breath Cardiovascular: No chest pain, No edema Gastrointestinal: No abdominal pain; loss of appetite; No nausea, No vomiting; other (last BM was 2 days ago) Genitourinary: other (rectal mass associated with pain and bleeding) : No Psychiatric/Neurological: Denies Headache Physical Exam Physical Exam Vital Signs Vital Signs - First Documented 07/24/21 07/24/21 18:47 22:11 Temp 36.9 Pulse 87 Resp 16 B/P (MAP) 127/71 (89) Pulse Ox 97 O2 Delivery Nasal Cannula O2 Flow Rate 2.00 Capillary Refill : Less Than 3 Seconds Height, Weight, BMI Height: 5'4.00" Weight: 125lbs. oz. 56.336479it; 17.72 BMI Method:Stated General Appearance: No Apparent Distress, Chronically ill, Thin Respiratory: No Accessory Muscle Use, No Respiratory Distress, Other (coarse breath sounds on left ) Cardiovascular: Regular Rate, Rhythm, No Edema, No Murmur Gastrointestinal: Normal Bowel Sounds, Soft, Guarding (reported no tenderness but guarding was present) Rectal: Mass (3x3 erythematous mass protruding from anus, erythema of perianum) Extremity: No Pedal Edema Neurologic/Psychiatric: Other (oriented to person, drifting in and out of sleep during encounter) Skin: Warm/Dry, Pallor Lymphatic: No Adenopathy (no cervical lymphadenopathy) Results Results/Procedures Labs Laboratory Tests 07/24/21 18:50 07/25/21 05:23 Patient resulted labs reviewed. Imaging: Reviewed Imaging Report Assessment/Plan Admission Diagnosis Right lower lobe pneumonia, UTI, rectal mass Admission Status: Inpatient Order (span 2 midnights) Reason for Inpatient Admission: Right lower lobe pneumonia, UTI, rectal mass Assessment and Plan Assessment: Right lower lobe pneumonia UTI Rectal mass, surgery is following COPD Anxiety Chronic hydrocodone use DVT prophylaxis Hypokalemia BMI 17.7 Advanced age Debility Plan: Ceftriaxone and azithromycin for pneumonia Supplemental oxygen, wean as tolerated Tessalon perles, Robitussin cough syrup for cough Lovenox for DVT prophylaxis Haloperidol, Ziprasidone, Lorazepam for mood stabilization Per Surgery, rectal mass biopsy and colonoscopy. CT for staging Bowel regimen Replace VIRY AVALOS DO 07/26/21 0614: History of Present Illness HPI/Chief Complaint Chief complaint: Exacerbation of COPD with pneumonia and rectal mass History of present illness: This is a very debilitated 80-year-old who smokes 3 packs a day who presented to the ER with shortness of breath and weakness found to have pneumonia but a rectal mass consistent with neoplasm. Patient was placed on IV antibiotics and supportive care Dr. APOORVA helms perform biopsy. 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) Smoking Status: Current Everyday Smoker Past Medical History COPD, Emphysema Family Medical History Cancer 03 FATHER 03 MOTHER 09 BROTHER 09 SISTER Cancer of colon 09 SISTER Congenital heart disease 09 BROTHER Family history: Arthritis 03 FATHER 03 MOTHER 09 BROTHER 09 SISTER Family history: Asthma 09 SISTER Family history: Diabetes mellitus 09 BROTHER Family history: Gastrointestinal disease 03 FATHER 09 BROTHER Family history: Hypertension 03 MOTHER 09 BROTHER Heart disease 03 MOTHER 09 BROTHER History of - respiratory disease 03 FATHER 03 MOTHER 09 BROTHER Myocardial infarction 03 MOTHER Prostate cancer 03 FATHER 09 BROTHER Stroke 03 MOTHER No Family History of: Abdominal aortic aneurysm Alcoholism Congestive heart failure Dementia Family history: Allergy Family history: Alzheimer's disease Family history: Breast disease Family history: Cardiovascular disease Family history: Thyroid disorder History of - anemia Kidney disease Parkinson's disease Seizure disorder Review of Systems Constitutional: see HPI Respiratory: cough Physical Exam Physical Exam General Appearance: No Apparent Distress, Chronically ill, Thin Neck: Normal Inspection Respiratory: No Accessory Muscle Use, No Respiratory Distress, Other (coarse breath sounds on left ) Gastrointestinal: Normal Bowel Sounds Rectal: Mass (3x3 erythematous mass protruding from anus, erythema of perianum) Assessment/Plan Admission Diagnosis Assessment: Right lower lobe pneumonia Exacerbation of COPD Cachexia Rectal mass Plan: Pneumonia treatment Biopsy per Dr. GUERIN Admission Status: Inpatient Order (span 2 midnights) Reason for Inpatient Admission: Pneumonia with rectal mass Supervisory-Addendum Brief Verification & Attestation Participated in pt care: history, MDM, physical Personally performed: exam, history, MDM, supervision of care Care discussed with: Medical Student Procedures: n/a Results interpretation: Verified all documentation Verification and Attestation of Medical Student E/M Service A medical student performed and documented this service in my presence. I reviewed and verified all information documented by the medical student and made modifications to such information, when appropriate. I personally performed the physical exam and medical decision making. Viry De La O, Jul 26, 2021,06:14 BRANDI CHEN Jul 25, 2021 13:03 VIRY DE LA O DO Jul 26, 2021 06:14
--- NOTE | 2021-07-25 13:03 | Anesthesia-General Post-Op ---
MAC Patient Condition Mental Status/LOC: Same as Preop Cardiovascular: Satisfactory Nausea/Vomiting: Absent Respiratory: Satisfactory Pain: Controlled Complications: Absent Post Op Complications Complications None Follow Up Care/Instructions Patient Instructions None needed. Anesthesiology Discharge Order Discharge Order Patient is doing well, no complaints, stable vital signs, no apparent adverse anesthesia problems. No complications reported per nursing. CLAIRE WATERMAN CRNA Jul 25, 2021 13:03
[2021-07-25] MEDS ORDERED: morphine INJ 10 MG/ML 1ML (SYR OR VIAL) IVP ONE (13:15)
[2021-07-25] MEDS ORDERED: PROMETHAZINE INJ 25 MG/ML (PHENERGAN) AMP IVP ONE (13:15)
[2021-07-25] MEDS ORDERED: ONDANSETRON 4 MG/2 ML (SDV) Z0FRAN IVP PRN (13:15)
[2021-07-25] MEDS ORDERED: MEPERIDINE (DEMEROL) INJ 50 MG/ML IVP ONE (13:15)
[2021-07-25] MEDS ORDERED: morphine INJ 10 MG/ML 1ML (SYR OR VIAL) ONE (13:18)
[2021-07-25] MEDS: NS IV 1000 ML 1,000 ML IV SCH (13:46)
[2021-07-25] MEDS: POTASSIUM CL 10MEQ/50ML IVPB 50 ML IV SCH ×4 (13:47→18:02)
--- NOTE | 2021-07-25 14:39 | OPERATIVE REPORT ---
DATE OF SERVICE: 07/25/2021 ATTENDING [facility]: [facility] ADMITTING PHYSICIAN: Dr. Viry Valencia. PREOPERATIVE DIAGNOSIS: Anal canal symptomatic neoplastic mass. 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 PROCEDURE: Anal exam under anesthesia, pudendal nerve block, transanal resection anal mass,3 cm in size with submucosal injection. SURGEON: Selene Guerin MD. ORDER CLERK: Jose A De Anda APRN. ANESTHESIA: Monitored anesthesia care with local, pudendal nerve block. ESTIMATED BLOOD LOSS: Minimal. 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 DISPOSITION: The patient tolerated the procedure well. INDICATIONS: The patient is a 80-year-old female who presented to the Emergency Department by EMS after family had seen her at home and she had complained of cough, shortness of breath as well as significant weakness. She had reported that she has had a cough for approximately two weeks an intermittent basis with some production of sputum. She does have a longstanding history of smoking as well as COPD. She did have a COVID vaccination prior to with a Abbe and Abbe regimen. She did have a chest x-ray performed in the Emergency Department, which did show consolidation of the right lobe of the lung consistent with pneumonia. Upon further examination, she was found to have a large exophytic neoplastic mass of the anus 3 cm in size, which was irritated and friable. She states that this has increased in size caused significant redness, drainage, pain and bleeding. She did have a colonoscopy in 2012 after developing abdominal pain and a CT scan was performed, which did show some thickening of the transverse and descending colon consistent with some form of colitis and she underwent a colonoscopy in 03/2013, which did show chronic stage II external and internal hemorrhoids; however, no other abnormalities detected. She does have a strong family history of cancers with her mother having breast cancer and father as well as two sisters with colon cancer, another sister with ovarian cancer. DESCRIPTION OF PROCEDURE: The patient was brought to the operating room, laid in the left lateral decubitus position on the operating room table. After adequate IV pain and sedative medications and monitored anesthesia care, the perineum was prepped and draped in standard surgical fashion. We then proceeded with a pudendal nerve block using 0.5% bupivacaine with epinephrine, approximately 2 cm below the ischial tuberosity and the anal sphincters did show relaxation. The mass was examined and there was a significant rectal prolapse identified and the lesion that was protruding through the anus appeared to be more of a rectal mucosal mass extruding through the prolapsed portion of the rectum. It was decided to proceed with a transanal resection of the rectal lesion. The mucosa was anesthetized using 0.5% Marcaine with epinephrine and marked with a submucosal injection of black ink. The lesion was then fully excised in a circumferential fashion to the level of the muscularis layer of the rectum; however, not breaching this. A stay suture was also placed to the proximal portion of the lesion and once the lesion was fully excised using a Sonicision and good hemostasis was observed, the mucosa was reapproximated using 2-0 Vicryl running suture. Good hemostasis was observed. A hemostatic plug made of Gelfoam covered in Surgicel was placed followed by 4 x 4 gauze followed by mesh shorts. The patient tolerated the procedure well. We will await the biopsy results; however, we will start her on a regular diet; however, also add laxatives. She does also need to be treated for her significant COPD and right lower lobe pneumonia. She also has very poor functional capacity at this time and also does have the early stages of sacral decubitus ulcer, which will need wound care. She will likely need some form of pulmonary as well as physical therapy as well. Job ID: [id number] DocumentID: [id number] Dictated Date: 07/25/2021 13:07:32 Marketing Budget Analyst Date: 07/25/2021 14:38:11 Dictated By: SELENE GUERIN MD MTDD
[2021-07-25] MEDS ORDERED: NS 100 ML (IVPB) BAG IV ONE (15:45)
[2021-07-25] MEDS ORDERED: CATHETER FLUSH 10 ML SYR IV PRN (15:45)
[2021-07-25] MEDS ORDERED: HOLD METFORMIN - RECEIVED CONTRAST 20 ML VIAL IV SCH (15:45)
[2021-07-25] MEDS ORDERED: IOHEXOL 350 MG/ML 100 ML (OMNIPAQUE 350) VIAL IV ONE (15:45)
--- NOTE | 2021-07-25 16:25 | Diagnostic Imaging Report ---
PROCEDURE: CT chest, abdomen, and pelvis with contrast. TECHNIQUE: Multiple contiguous axial images were obtained through the chest, abdomen, and pelvis after the administration of intravenous contrast. Auto Exposure Controls were utilized during the CT exam to meet ALARA standards for radiation dose reduction. INDICATION: Rectal and lung mass. Also, history of breast cancer. COMPARISON: Study is compared to 02/16/2013. FINDINGS: CHEST: Some biapical pleural-parenchymal scarring is a chronic finding noted. There is a small right pleural effusion and a minute left pleural effusion with the right fluid to a depth of 1.5 cm. There is likely some chronic consolidation and scarring in the lung bases anteromedially, in the lingula, and right middle lobe. Pneumonia could not be excluded, but this appearance suggests chronic pathology. No axillary, hilar, or mediastinal lymphadenopathy. The aorta is nonaneurysmal. There is heterogeneous thyromegaly without discrete measurable thyroidal mass. No acute chest wall abnormality. ABDOMEN AND PELVIS: There are no findings of hemorrhage, abscess, or bowel obstruction. The chronic submucosal lipoma in the ascending colon is a stable benign finding. The urinary bladder is catheterized. There is no contrast extravasation. No bowel obstruction or features of significant ileus. There is fatty infiltration of the liver with no liver mass. Gallbladder is surgically absent. There is some mild post-cholecystectomy and senescent ectasia of the biliary ducts. No acute hepatobiliary abnormality. No fluid collection. No pneumatosis. No free air. No mesial rectal or ischiorectal adenopathy. Pelvic sidewalls and ilioinguinal lymph node chains are unremarkable. There are nonaneurysmal aortoiliac and mesenteric atherosclerotic vascular calcifications. No thrombus or end organ ischemia. No suspicious lytic or sclerotic bony lesion. IMPRESSION: 1. There were no findings felt suggestive of a pattern of metastatic disease. 2. The chest has some chronic scarring and features of COPD with small pleural effusions and zones of atelectasis. No thoracic lymphadenopathy. Likely areas of chronic scarring in the lung bases anteromedially. Pneumonia could not be excluded. 3. The abdominal pelvic portion showed no obstruction, abscess, hemorrhage, or contrast extravasation. There is a chronic benign ascending colonic submucosal lipoma, nonobstructing. There is nonaneurysmal atherosclerosis. There is mild hepatic steatosis. Dictated by: Dictated on workstation # [id number]
[2021-07-25] MEDS ORDERED: POTASSIUM CL 10MEQ/50ML IVPB 50 ML IV ONE (17:36)
[2021-07-25] MEDS ORDERED: AZITHROMYCIN INJECTION 500 MG in NS (IVPB) 250 ML IV SCH (21:00)
[2021-07-25] MEDS: polyethylene glycoL POWDER 17 GM (MIRALAX) PACK PO SCH (21:05)
[2021-07-26] VITALS (7 sets, daily range): BP systolic 122–153; BP diastolic 56–68
[2021-07-26] MEDS: NS IV 1000 ML 1,000 ML IV SCH (03:48)
[2021-07-26 06:45] LABS: BASOPHILS % (AUTO) 0 % (0-10); EOSINOPHILS % (AUTO) 0 % (0-10); HEMATOCRIT 31 % (35-52); HEMOGLOBIN 10.3 g/dL (11.5-16.0); LYMPHOCYTES # (AUTO) 2.2 10^3/uL (1.0-4.0); LYMPHOCYTES % (AUTO) 16 % (12-44); MEAN CORPUSCULAR HEMOGLOBIN 31 pg (25-34); MEAN CORPUSCULAR HGB CONC 33 g/dL (32-36); MEAN CORPUSCULAR VOLUME 91 fL (80-99); MEAN PLATELET VOLUME 9.2 fL (9.0-12.2); MONOCYTES # (AUTO) 0.8 10^3/uL (0.0-1.0); MONOCYTES % (AUTO) 6 % (0-12); NEUTROPHILS # (AUTO) 10.5 10^3/uL (1.8-7.8); NEUTROPHILS % (AUTO) 77 % (42-75); PLATELET COUNT 421 10^3/uL (130-400); WHITE BLOOD COUNT 13.7 10^3/uL (4.3-11.0)
[2021-07-26 07:02] LABS: ALBUMIN 2.6 GM/DL (3.2-4.5); BILIRUBIN,TOTAL 0.4 MG/DL (0.1-1.0); CALCIUM 8.2 MG/DL (8.5-10.1); CREATININE SERUM 0.53 MG/DL (0.60-1.30); POTASSIUM 3.4 MMOL/L (3.6-5.0); TOTAL PROTEIN 5.6 GM/DL (6.4-8.2)
[2021-07-26] MEDS: ENOXAPARIN 30 MG/0.3 ML (LOVENOX) SYR SC SCH (08:52)
[2021-07-26] MEDS: SENNOSIDES 8.6 MG (SENOKOT) TAB PO SCH ×2 (08:53→20:09)
[2021-07-26] MEDS: DOCUSATE SODIUM 100 MG (COLACE) CAP PO SCH ×2 (08:53→20:09)
[2021-07-26] MEDS: polyethylene glycoL POWDER 17 GM (MIRALAX) PACK PO SCH ×2 (08:54→20:09)
[2021-07-26] MEDS: BENZONATATE 100 MG (TESSALON) CAPSULE PO SCH ×3 (08:54→20:09)
[2021-07-26] MEDS: cefTRIAXone 1 GM PRE-MIX 50 ML IV SCH (08:54)
--- NOTE | 2021-07-26 10:45 | Progress Note ---
Subjective Date Seen by a Provider: Jul 26, 2021 Time Seen by a Provider: 10:00 Subjective/Events-last exam very weak. some anorectal pain. no BM since procedure. does not seem to ambulate much at all. no rectal bleed. Focused Exam Lactate Level 07/24/21 19:14: Lactic Acid Level 0.90 Objective Exam Vital Signs Date Time Temp Pulse Resp B/P (MAP) Pulse Ox O2 Delivery O2 Flow Rate FiO2 07/26/21 08:00 36.2 61 21 132/62 (85) 96 OxyMask 2.00 07/26/21 08:00 OxyMask 2.00 07/26/21 04:20 35.8 69 19 130/63 (85) 95 OxyMask 2.00 07/26/21 00:00 37.1 69 19 124/58 (80) 97 OxyMask 2.00 07/25/21 20:55 OxyMask 2.00 07/25/21 20:00 36.7 82 18 115/57 (76) 98 Nasal Cannula 1.50 07/25/21 16:00 37.7 76 18 115/58 (77) 97 Nasal Cannula 2.00 07/25/21 13:31 OxyMask 2 07/25/21 13:30 36.8 19 120/61 (80) 97 OxyMask 2 07/25/21 13:20 24 126/66 (86) 93 Room Air 07/25/21 13:15 OxyMask 2 07/25/21 13:10 23 121/60 (80) 100 OxyMask 2 07/25/21 12:58 37.1 16 94 OxyMask 8 07/25/21 12:58 OxyMask 5 07/25/21 12:00 36.8 73 16 117/57 (77) 94 Nasal Cannula 2.00 I & O 07/26/21 07:00 Intake Total 4375 ml Output Total 975 ml Balance 3400 ml Capillary Refill : Less Than 3 SecondsLess Than 3 Seconds General Appearance: No Apparent Distress HEENT: PERRL/EOMI Neck: Full Range of Motion Respiratory: Decreased Breath Sounds, Wheezing Cardiovascular: Regular Rate, Rhythm Gastrointestinal: normal bowel sounds, non tender, soft Extremity: Normal Capillary Refill Neurologic/Psychiatric: Alert Skin: Normal Color Lymphatic: No Adenopathy Results Lab Laboratory Tests 07/26/21 06:15: White Blood Count 13.7H, Red Blood Count 3.38L, Hemoglobin 10.3L, Hematocrit 31L , Mean Corpuscular Volume 91, Mean Corpuscular Hemoglobin 31, Mean Corpuscular Hemoglobin Concent 33, Red Cell Distribution Width 12.3, Platelet Count 421H, Mean Platelet Volume 9.2, Immature Granulocyte % (Auto) 1, Neutrophils (%) (Auto) 77H, Lymphocytes (%) (Auto) 16, Monocytes (%) (Auto) 6, Eosinophils (%) (Auto) 0, Basophils (%) (Auto) 0, Neutrophils # (Auto) 10.5H, Lymphocytes # (Auto) 2.2, Monocytes # (Auto) 0.8, Eosinophils # (Auto) 0.0, Basophils # (Auto) 0.0, Immature Granulocyte # (Auto) 0.1, Sodium Level 134L, Potassium Level 3.4L, Chloride Level 102, Carbon Dioxide Level 22, Anion Gap 10, Blood Urea Nitrogen 7, Creatinine 0.53L, Estimat Glomerular Filtration Rate 95, BUN/Creatinine Ratio 13, Glucose Level 77, Calcium Level 8.2L, Corrected Calcium 9.3, Total Bilirubin 0.4, Aspartate Amino Transf (AST/SGOT) 13, Alanine Aminotransferase (ALT/SGPT) 7, Alkaline Phosphatase 62, Total Protein 5.6L, Albumin 2.6L Microbiology 07/24/21 Urine Culture - Preliminary, Resulted Gram Negative Bacillus 1 07/24/21 Blood Culture - Preliminary, Resulted No growth Assessment/Plan Assessment/Plan Assess & Plan/Chief Complaint rectal prolapse with large prolapsed pedunculated polyp s/p transanal resection. cont stool softeners/laxatives to promote soft stools daily. diet as tolerated. cont abx for pneumonia. SELENE GUERIN MD Jul 26, 2021 10:45
--- NOTE | 2021-07-26 11:25 | Physical Therapy Evaluation ---
PT Evaluation-General Medical Diagnosis Admission Date Jul 24, 2021 at 21:27 Medical Diagnosis: s/p transanal resection Onset Date: Jul 25, 2021 Therapy Diagnosis Therapy Diagnosis: impaired mobility, strength, endurance Height/Weight Height (Feet): 5 Height (Inches): 4.00 Weight (Pounds): 125 Precautions Precautions/Isolations: Fall Prevention, Standard Precautions, Pressure Ulcer Referral Physician: Viry Valencia DO Reason for Referral: Evaluation/Treatment Medical History Additional Medical History Past Medical History Surgeries: Appendectomy, Breast (bilateral biopsy), Gallbladder, Hysterectomy (total) 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 1-Psmvttpiqt-drswvib completes the activity by him/herself with no assistance from a helper. 5-Set-up or Clean-up Assistance-helper sets up or cleans up; patient completes activity. [place] assists only prior to or following the activity. 4-Supervision or Touching Assistance-helper provides verbal cues and/or touching/steadying and/or contact guard assistance as patient completes activity. Assistance may be provided throughout the activity or intermittently. 3-Partial/Moderate Assistance-helper does LESS THAN HALF the effort. [place] lifts, holds or supports trunk or limbs, but provides less than half the effort. 2-Substantial/Maximal Assistance-helper does MORE THAN HALF the effort. [place] lifts or holds trunk or limbs and provides more than half the effort. 1-Wlddjgjzt-pbwzzd does ALL the effort. Patient does none of the effort to complete the activity. Or, the assistance of 2 or more helpers is required for the patient to complete the activity. If activity was not attempted, code reason: 7-Patient Refused. 9-Not Applicable-not attempted and the patient did not perform the activity before the current illness, exacerbation or injury. 10-Not Attempted due to Environmental Limitations-(lack of equipment, weather restraints, etc.). 88-Not Attempted due to Medical Conditions or Safety Concerns. Bed Mobility: 6 Transfers (B,C,W/C): 6 Gait: 6 Stairs: 6 Indoor Mobility (Ambulation): Independent Stairs: Independent PT Evaluation-Current Subjective Patient in bed pre tx, agrees to PT, has unrated pain on bottom with activity or sitting but none at rest laying on her side. Pt/Family Goals decrease pain with activity Objective Patient Orientation: Person, Place, Situation Attachments: Oxygen, Diaz Catheter, IV ROM/Strength ROM Lower Extremities WNL Strength Lower Extremities LLE (hip flexion 3+/5, knee flexion 4-/5, knee extension 4-/5, dorsiflexion 4-/ 5), RLE (hip flexion 3+/5, knee flexion 4/5, knee extension 4/5, dorsiflexion 4/5) Sensory Hearing: Functional Sensation Right Lower Extremit: Intact Sensation Left Lower Extremity: Intact Transfers Roll Left to Right (QC): 6 Lying to Sitting/Side of Bed(Q: 6 Sit to Stand (QC): 4 Chair/Fvu-tz-Kqffj Xfer(QC): 4 Gait Does the Patient Walk?: Yes Mode of Locomotion: Walk Anticipated Mode of Locomotion: Walk Walk 10 feet (QC): 4 Walk 50 ft with 2 Turns(QC): 4 Distance: 100' Gait Assistive Device: FWW Comments/Gait Description very slow ambulation, slight unsteady with turning Balance Sitting Static: Normal Sitting Dynamic: Normal Standing Static: Fair Standing Dynamic: Fair Treatment BLE seated exercises x20 (AP, LAQ) Assessment/Needs Patient sitting EOB post tx, wound care nurse in room to see patient. Patient has impaired mobility, strength, endurance. She performs transfers and ambulat ion with CGA. Rehab Potential: Fair PT Jail Goals Electrical And Radio Mock Up Mechanic Goals PT Electrical And Radio Mock Up Mechanic Goals Time Frame: Aug 02, 2021 Roll Left & Right (QC): 6 Sit to Lying (QC): 6 Lying-Sitting on Side/Bed(QC): 6 Sit to Stand (QC): 6 Chair/Ymd-rl-Etnxw Xfer(QC): 6 Walk 10 feet (QC): 5 Walk 50ft with 2 Turns (QC): 5 Walk 150 ft (QC): 5 PT Plan Problem List Problem List: Activity Tolerance, Functional Strength, Safety, Balance, Gait, Transfer, ROM Treatment/Plan Treatment Plan: Continue Plan of Care Treatment Plan: Education, Functional Activity Kiet, Functional Strength, Gait, Safety, Therapeutic Exercise, Transfers Treatment Duration: Aug 02, 2021 Frequency: 6 times per week Estimated Hrs Per Day: .25 hour per day Patient and/or Family Agrees t: Yes Safety Risks/Education Patient Education: Gait Training, Transfer Techniques, Correct Positioning, Safety Issues Teaching Recipient: Patient Teaching Methods: Demonstration, Discussion Response to Teaching: Reinforcement Needed Discharge Recommendations Plan Patient will perform bed mobility and transfer training, balance and endurance training, functional strengthening, stair training, gait training, and education to improve functional mobility and independence at home. Therapy Discharge Recommendati: Scheduled Assistance, Home & Family, Post Acute PT Time/GCodes Time In: 1056 Time Out: 1113 Total Billed Treatment Time: 17 Total Billed Treatment 1 visit DONNELL GARCIA PT Jul 26, 2021 11:25
--- NOTE | 2021-07-26 11:55 | Occupational Therapy Eval ---
OT Evaluation-General/PLF Medical Diagnosis Admission Date Jul 24, 2021 at 21:27 Medical Diagnosis: s/p transanal resection Onset Date: Jul 25, 2021 Therapy Diagnosis Therapy Diagnosis: decreased ADL Status, weakness Height/Weight Height (Feet): 5 Height (Inches): 4.00 Weight (Pounds): 125 Precautions Precautions/Isolations: Fall Prevention, Standard Precautions, Pressure Ulcer Referral Physician: Viry Valencia DO Referral Reason: Evaluation/Treatment Medical History Additional Medical History COPD, emphysema, kidney stones, fibromyalgia, anxiety Current History ED with SOB, malaise, burning with urination and rectal mass Social History Current Living Status: Alone Entry Into Home: Stairs With Railing Steps Into Home: 3 ADL-Prior Level of Function SCALE: Activities may be completed with or without assistive devices. 0-Ncgjgpgdli-lrflfdl completes the activity by him/herself with no assistance from a helper. 5-Set-up or Clean-up Assistance-helper sets up or cleans up; patient completes activity. [place] assists only prior to or following the activity. 4-Supervision or Touching Assistance-helper provides verbal cues and/or touching/steadying and/or contact guard assistance as patient completes activity. Assistance may be provided throughout the activity or intermittently. 3-Partial/Moderate Assistance-helper does LESS THAN HALF the effort. [place] lifts, holds or supports trunk or limbs, but provides less than half the effort. 2-Substantial/Maximal Assistance-helper does MORE THAN HALF the effort. [place] lifts or holds trunk or limbs and provides more than half the effort. 5-Qehacbycp-oinpoa does ALL the effort. Patient does none of the effort to complete the activity. Or, the assistance of 2 or more helpers is required for the patient to complete the activity. If activity was not attempted, code reason: 7-Patient Refused. 9-Not Applicable-not attempted and the patient did not perform the activity before the current illness, exacerbation or injury. 10-Not Attempted due to Environmental Limitations-(lack of equipment, weather restraints, etc.). 88-Not Attempted due to Medical Conditions or Safety Concerns. ADL PLOF Comments Pt reports IND with ADLs at PLOF, does not use AD for functional mobility. OT Current Status Subjective Pt in bed, wound care nurse present. Pt agreeable to OT evaluation. Mental Status/Objective Patient Orientation: Person, Place, Situation Attachments: Diaz Catheter, IV, Oxygen (OxyMask) Current Hand Dominance: Right Upper Extremity ROM Slightly decreased. Pt's sister indicates pt has difficulty raising arms overhead in order to fix her hair. Upper Extremity Coordination WFL Upper Extremity Strength grossly 3/5 ADL-Treatment Oral Hygiene (QC): 5 (Pt able to use oral swab with set up assist.) Toileting Hygiene (QC): 1 (catheter.) Other Treatments Pt in bed, wound care nurse present placing pressure pads on pt's buttocks wounds. OT assisted with positioning of pt in sidelying, and assisted with managing clothing out of the way. Pt provided information about PLOF and home setup. Pt agreeable to simple ADL session, declines OOB activities as she just got up with PT and is tired. Pt able to wash her face and use oral swab for oral care with set up assistance. Pt declined combing her hair at this time. Per PT report, pt required CGA with FWW, 100'; IND with rolling and sit <-> supine transfers. Pt requests to rest at this time due to fatigue. Pt's sister assisted pt with ordering meals, and then assisted pt with suctioning her mouth. Post tx, pt in bed, call light in reach and all needs met. 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 2=Patient will verbalize/demonstrate understanding of assistive devices/modifications for ADL. 3=Patient will improve strength/tolerance for activity to enable patient to p erform ADL's. OT Education/Plan Problem List/Assessment Assessment: Decreased Activ Tolerance, Decreased UE Strength, Impaired Funct Balance, Impaired I ADL's, Impaired Self-Care Skills Discharge Recommendations Plan/Recommendations: Continue POC Treatment Plan/Plan of Care Patient would benefit from OT for education, treatment and training to promote independence in ADL's, mobility, safety and/or upper extremity function for ADL's. Plan of Care: ADL Retraining, Functional Mobility, UE Funct Exercise/Act Treatment Duration: Aug 09, 2021 Frequency: 3 times per week (3-5 times per week) Rehab Potential: Fair Time/GCodes Start Time: 11:35 Stop Time: 11:48 Total Time Billed (hr/min): 13 Billed Treatment Time 1, ULYSSES GODOY OT Jul 26, 2021 11:55
[2021-07-26] MEDS: ALPRAZolam 0.5 MG (XANAX) TAB PO PRN ×2 (12:09→20:08)
--- NOTE | 2021-07-26 12:32 | Progress Note - Hospitalist ---
BRANDI CHEN 07/26/21 1232: Subjective HPI/CC On Admission Date Seen by Provider: Jul 26, 2021 Time Seen by Provider: 10:00 Chief complaint: Exacerbation of COPD with pneumonia and rectal mass History of present illness: This is a very debilitated 80-year-old who smokes 3 packs a day who presented to the ER with shortness of breath and weakness found to have pneumonia but a rectal mass consistent with neoplasm. Patient was placed on IV antibiotics and supportive care Dr. APOORVA helms perform biopsy. Subjective/Events-last exam Patient is resting in bed at time of encounter. She states her pain is 4-5/10 today but has improved since yesterday. Her pain is located in her perianal region. She has not yet had a bowel movement. She denies shortness of breath but does report an increase in congestion today and coughing up phlegm. She has been tolerating oxygen mask. She denies chest pain, abdominal pain, nausea, vomiting, or diarrhea. Patient was taken to the OR yesterday for transanal resection of a prolapsed pedunculated 3cm polyp. Awaiting biopsy results. During the procedure early stages of a sacral decubitus ulcer was noted, Surgery recommended wound care. Per nursing report patient has been anxious; family states she usually takes Xanax at home that helps. Na 134 K 3.4 WBC continue to decline, 13.7 today. (15.6 on 07/25) Platelets 421 CT abdomen and chest: no findings of metastatic disease or patterns. Lungs show signs of COPD, small pleural effusions, chronic scarring, atelectasis. Abdomen displayed no obstruction, abscess, or hemorrhage. 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 Mild hepatic steatosis noted. Review of Systems Pulmonary: No Dyspnea; Cough Cardiovascular: No: Chest Pain Gastrointestinal: No: Nausea, Vomiting, Abdominal Pain, Diarrhea Genitourinary: Other (perianal pain) Focused Exam Lactate Level 07/24/21 19:14: Lactic Acid Level 0.90 Objective Exam Vital Signs Vital Signs Date Time Temp Pulse Resp B/P (MAP) Pulse Ox O2 Delivery O2 Flow Rate FiO2 07/26/21 08:00 36.2 61 21 132/62 (85) 96 OxyMask 2.00 Capillary Refill : Less Than 3 SecondsLess Than 3 Seconds General Appearance: No Apparent Distress, Thin Respiratory: No Accessory Muscle Use, Wheezing (bilateral), Other (very coarse breath sounds on the left) Cardiovascular: Regular Rate, Rhythm, No Edema Gastrointestinal: Normal Bowel Sounds, Non Tender, Soft, Guarding (although patient denies tenderness with palpation) Extremity: No Pedal Edema Skin: Warm/Dry, Pallor Results/Procedures Lab Laboratory Tests 07/26/21 06:15 Patient resulted labs reviewed. Imaging: Reviewed Imaging Report Assessment/Plan Assessment and Plan Assess & Plan/Chief Complaint Assessment: Right lower lobe pneumonia UTI S/p transanal resection of 3cm pedunculated polyp, awaiting biopsy results COPD Anxiety Chronic hydrocodone use DVT prophylaxis Hypokalemia BMI 17.7 Advanced age Debility Sacral decubitus ulcer Plan: Ceftriaxone and azithromycin for pneumonia Supplemental oxygen, wean as tolerated Tessalon perles, Robitussin cough syrup for cough Lovenox for DVT prophylaxis Haloperidol, Ziprasidone, Lorazepam for mood stabilization Regular diet Bowel regimen, laxative therapy Replace K Pain control Regular diet Anxiety management, Xanax 0.5mg Wound care and frequent position changes for decubitus ulcer VIRY DE LA O DO 07/27/21 0630: Subjective Subjective/Events-last exam Pt doing about the same Will heplock IV fluid and consult PT/OT Needs placement CT is negative for any malignancy Status post-rectal polyp removed. Removed a 3cm polyp that ended up not being an anal mass Review of Systems General: Fatigue, Malaise Objective Exam General Appearance: No Apparent Distress, WD/WN, Chronically ill, Thin Respiratory: No Accessory Muscle Use, No Respiratory Distress, Decreased Breath Sounds Cardiovascular: Regular Rate, Rhythm Neurologic/Psychiatric: Alert, Oriented x3 Assessment/Plan Assessment and Plan Assess & Plan/Chief Complaint Reviewed CT scan Hep-Lock IV fluid PT and OT Needs placement at discharge Supervisory-Addendum Brief Verification & Attestation Participated in pt care: history, MDM, physical Personally performed: exam, history, MDM, supervision of care Care discussed with: Medical Student Procedures: n/a Results interpretation: Verified all documentation Verification and Attestation of Medical Student E/M Service A medical student performed and documented this service in my presence. I reviewed and verified all information documented by the medical student and made modifications to such information, when appropriate. I personally performed the physical exam and medical decision making. Viry De La O, Jul 27, 2021,06:30 BRANDI CHEN Jul 26, 2021 12:32 VIRY DE LA O DO Jul 27, 2021 06:30
[2021-07-26] MEDS: AZITHROMYCIN 250 MG TAB (ZITHROMAX) PO SCH (20:09)
[2021-07-27] MEDS: ALPRAZolam 0.5 MG (XANAX) TAB PO PRN ×3 (01:30→22:38)
[2021-07-27 03:56] VITALS: BP 137/66
[2021-07-27 06:09] LABS: BASOPHILS % (AUTO) 0 % (0-10); EOSINOPHILS % (AUTO) 0 % (0-10); HEMATOCRIT 32 % (35-52); HEMOGLOBIN 10.8 g/dL (11.5-16.0); LYMPHOCYTES # (AUTO) 3.2 10^3/uL (1.0-4.0); LYMPHOCYTES % (AUTO) 31 % (12-44); MEAN CORPUSCULAR HEMOGLOBIN 31 pg (25-34); MEAN CORPUSCULAR HGB CONC 34 g/dL (32-36); MEAN CORPUSCULAR VOLUME 90 fL (80-99); MEAN PLATELET VOLUME 9.4 fL (9.0-12.2); MONOCYTES # (AUTO) 0.8 10^3/uL (0.0-1.0); MONOCYTES % (AUTO) 8 % (0-12); NEUTROPHILS # (AUTO) 6.2 10^3/uL (1.8-7.8); NEUTROPHILS % (AUTO) 60 % (42-75); PLATELET COUNT 463 10^3/uL (130-400); WHITE BLOOD COUNT 10.3 10^3/uL (4.3-11.0)
[2021-07-27 06:16] LABS: ALBUMIN 2.7 GM/DL (3.2-4.5)
[2021-07-27 06:17] LABS: CHLORIDE 100 MMOL/L (98-107); POTASSIUM 2.9 MMOL/L (3.6-5.0); SODIUM 136 MMOL/L (135-145)
[2021-07-27 06:18] LABS: CALCIUM 8.3 MG/DL (8.5-10.1)
[2021-07-27 06:19] LABS: GLUCOSE 88 MG/DL (70-105); TOTAL PROTEIN 5.7 GM/DL (6.4-8.2)
[2021-07-27 06:20] LABS: CARBON DIOXIDE 25 MMOL/L (21-32)
[2021-07-27 06:22] LABS: ALKALINE PHOSPHATASE 54 U/L (40-136)
[2021-07-27 06:23] LABS: CREATININE SERUM 0.55 MG/DL (0.60-1.30); GFR ESTIMATED 94
[2021-07-27 06:24] LABS: BUN/CREATININE RATIO 7
[2021-07-27 06:25] LABS: ALANINE AMINOTRANSFERASE < 6 U/L (0-55)
--- NOTE | 2021-07-27 06:49 | Progress Note - Hospitalist ---
Subjective HPI/CC On Admission Date Seen by Provider: Jul 27, 2021 Time Seen by Provider: 12:00 Chief complaint: Exacerbation of COPD with pneumonia and rectal mass History of present illness: This is a very debilitated 80-year-old who smokes 3 packs a day who presented to the ER with shortness of breath and weakness found to have pneumonia but a rectal mass consistent with neoplasm. Patient was placed on IV antibiotics and supportive care Dr. APOORVA helms perform biopsy. Subjective/Events-last exam Patient doing really well 2 sisters at bedside Will DC catheter today Overall doing well Replacing potassium Will need placement in nursing facility Review of Systems General: Fatigue, Malaise Focused Exam Lactate Level Objective Exam Vital Signs Vital Signs Date Time Temp Pulse Resp B/P (MAP) Pulse Ox O2 Delivery O2 Flow Rate FiO2 07/28/21 03:49 37.0 77 18 145/70 (95) 93 OxyMask 2.00 Capillary Refill : Less Than 3 SecondsLess Than 3 Seconds General Appearance: No Apparent Distress, WD/WN, Chronically ill, Thin Respiratory: No Accessory Muscle Use, No Respiratory Distress, Decreased Breath Sounds Cardiovascular: Regular Rate, Rhythm Neurologic/Psychiatric: Alert, Oriented x3 Results/Procedures Lab Patient resulted labs reviewed. Imaging: Reviewed Imaging Report Assessment/Plan Assessment and Plan Assess & Plan/Chief Complaint Assessment: Pneumonia COPD Cachexia Anal mass s/p biopsy Hypokalemia Plan: IV antibiotics Oxygen wean DC catheter LIZBET DE LA O DO Jul 27, 2021 06:49
[2021-07-27 07:07] LABS: BILIRUBIN,TOTAL 0.4 MG/DL (0.1-1.0)
[2021-07-27 07:40] VITALS: BP 149/72
[2021-07-27] MEDS: SENNOSIDES 8.6 MG (SENOKOT) TAB PO SCH ×2 (09:28→20:46)
[2021-07-27] MEDS: cefTRIAXone 1 GM PRE-MIX 50 ML IV SCH (09:28)
[2021-07-27] MEDS: BENZONATATE 100 MG (TESSALON) CAPSULE PO SCH ×3 (09:28→20:46)
[2021-07-27] MEDS: polyethylene glycoL POWDER 17 GM (MIRALAX) PACK PO SCH ×2 (09:28→20:46)
[2021-07-27] MEDS: DOCUSATE SODIUM 100 MG (COLACE) CAP PO SCH ×2 (09:28→20:46)
[2021-07-27] MEDS: ENOXAPARIN 30 MG/0.3 ML (LOVENOX) SYR SC SCH (09:29)
[2021-07-27] MEDS: KCL 20 MEQ TAB (K-DUR) PO SCH ×2 (09:36→19:08)
--- NOTE | 2021-07-27 10:59 | Physical Therapy Daily Note ---
PT Daily Note-Current Subjective Pt was in the chair on arrival with family present. Pt indicated that she would like to get up and walk. No pain reported. Mental Status Patient Orientation: Person, Place, Time, Situation Attachments: Oxygen Transfers SCALE: Activities may be completed with or without assistive devices. 8-Dfsdizizza-okkhtik completes the activity by him/herself with no assistance from a helper. 5-Set-up or Clean-up Assistance-helper sets up or cleans up; patient completes activity. [place] assists only prior to or following the activity. 4-Supervision or Touching Assistance-helper provides verbal cues and/or touch ing/steadying and/or contact guard assistance as patient completes activity. Assistance may be provided throughout the activity or intermittently. 3-Partial/Moderate Assistance-helper does LESS THAN HALF the effort. [place] lifts, holds or supports trunk or limbs, but provides less than half the effort. 2-Substantial/Maximal Assistance-helper does MORE THAN HALF the effort. [place] lifts or holds trunk or limbs and provides more than half the effort. 2-[place]j-ycoybf does ALL the effort. Patient does none of the effort to complete the activity. Or, the assistance of 2 or more helpers is required for the patient to complete the activity. If activity was not attempted, code reason: 7-Patient Refused. 9-Not Applicable-not attempted and the patient did not perform the activity before the current illness, exacerbation or injury. 10-Not Attempted due to Environmental Limitations-(lack of equipment, weather restraints, etc.). 88-Not Attempted due to Medical Conditions or Safety Concerns. Sit to Stand (QC): 5 Gait Training Does the Patient Walk?: Yes Distance: 160ft Walk 10 feet (QC): 5 Walk 50 ft with 2 Turns(QC): 5 Walk 150 ft (QC): 5 Gait Persons Needed: 1 Gait Assistive Device: FWW Good stability with gait. Safe during turns and transfers. Exercises Seated Therapy Exercises: LE Protocol Seated Reps: 15 Assessment Current Status: Good Progress Pt remains motivated to ambulate and work toward returning home. PT Retirement Goals Site Inspector Goals PT Site Inspector Goals Time Frame: Aug 02, 2021 Roll Left & Right (QC): 6 Sit to Lying (QC): 6 Lying-Sitting on Side/Bed(QC): 6 Sit to Stand (QC): 6 Chair/Qld-ul-Jqtjx Xfer(QC): 6 Walk 10 feet (QC): 5 Walk 50ft with 2 Turns (QC): 5 Walk 150 ft (QC): 5 PT Plan Treatment/Plan Treatment Plan: Continue Plan of Care Treatment Plan: Education, Functional Activity Kiet, Functional Strength, Gait, Safety, Therapeutic Exercise, Transfers Treatment Duration: Aug 02, 2021 Frequency: 6 times per week Estimated Hrs Per Day: .25 hour per day Patient and/or Family Agrees t: Yes Time/GCodes Time In: 836 Time Out: 851 Total Billed Treatment Time: 15 Total Billed Treatment 1, gt 15 MARIE GARCIA PT Jul 27, 2021 10:59
[2021-07-27 11:30] VITALS: BP 125/61
[2021-07-27] MEDS: NICOTINE 21 MG (NICODERM) PATCH TD SCH (12:39)
[2021-07-27 16:00] VITALS: BP 125/64
[2021-07-27 20:00] VITALS: BP 147/72
[2021-07-27] MEDS: AZITHROMYCIN 250 MG TAB (ZITHROMAX) PO SCH (20:46)
[2021-07-28] VITALS (8 sets, daily range): BP systolic 128–185; BP diastolic 62–88
[2021-07-28 06:04] LABS: BASOPHILS % (AUTO) 0 % (0-10); EOSINOPHILS % (AUTO) 0 % (0-10); HEMATOCRIT 32 % (35-52); HEMOGLOBIN 10.9 g/dL (11.5-16.0); LYMPHOCYTES % (AUTO) 30 % (12-44); MEAN CORPUSCULAR HEMOGLOBIN 30 pg (25-34); MEAN CORPUSCULAR HGB CONC 34 g/dL (32-36); MEAN CORPUSCULAR VOLUME 90 fL (80-99); MEAN PLATELET VOLUME 9.1 fL (9.0-12.2); MONOCYTES # (AUTO) 0.7 10^3/uL (0.0-1.0); MONOCYTES % (AUTO) 7 % (0-12); NEUTROPHILS # (AUTO) 6.4 10^3/uL (1.8-7.8); NEUTROPHILS % (AUTO) 63 % (42-75); PLATELET COUNT 474 10^3/uL (130-400); WHITE BLOOD COUNT 10.2 10^3/uL (4.3-11.0)
[2021-07-28 06:17] LABS: POTASSIUM 2.9 MMOL/L (3.6-5.0)
[2021-07-28 06:18] LABS: CALCIUM 8.4 MG/DL (8.5-10.1)
[2021-07-28 06:21] LABS: BILIRUBIN,TOTAL 0.4 MG/DL (0.1-1.0)
[2021-07-28 06:23] LABS: CREATININE SERUM 0.54 MG/DL (0.60-1.30)
--- NOTE | 2021-07-28 07:01 | Progress Note - Hospitalist ---
Subjective HPI/CC On Admission Date Seen by Provider: Jul 28, 2021 Time Seen by Provider: 12:00 Chief complaint: Exacerbation of COPD with pneumonia and rectal mass History of present illness: This is a very debilitated 80-year-old who smokes 3 packs a day who presented to the ER with shortness of breath and weakness found to have pneumonia but a rectal mass consistent with neoplasm. Patient was placed on IV antibiotics and supportive care Dr. APOORVA helms perform biopsy. Subjective/Events-last exam Patient doing much better Bowels are now moving Lungs are good [place] retirement likely will be disposition Pathology still pending Supplementing potassium Review of Systems General: Fatigue, Malaise Objective Exam Vital Signs Vital Signs Date Time Temp Pulse Resp B/P (MAP) Pulse Ox O2 Delivery O2 Flow Rate FiO2 07/29/21 04:38 36.9 87 20 147/83 (104) 89 Room Air 07/28/21 20:13 2.00 Capillary Refill : Less Than 3 SecondsLess Than 3 Seconds General Appearance: No Apparent Distress, WD/WN, Chronically ill, Thin Respiratory: No Accessory Muscle Use, No Respiratory Distress, Decreased Breath Sounds Cardiovascular: Regular Rate, Rhythm Neurologic/Psychiatric: Alert, Oriented x3, No Motor/Sensory Deficits, Normal Mood/Affect Results/Procedures Lab Laboratory Tests 07/28/21 05:22 Patient resulted labs reviewed. Imaging: Reviewed Imaging Report Assessment/Plan Assessment and Plan Assess & Plan/Chief Complaint Assessment: Pneumonia COPD Cachexia Anal mass s/p biopsy Hypokalemia Plan: IV antibiotics Oxygen wean DC catheter 07/28/2021: Supportive care Nicotine patch Needs retirement LIZBET DE LA O DO Jul 28, 2021 07:01
[2021-07-28] MEDS ORDERED: KCL 20 MEQ TAB (K-DUR) PO SCH (09:00)
[2021-07-28] MEDS: cefTRIAXone 1 GM PRE-MIX 50 ML IV SCH (10:11)
[2021-07-28] MEDS: DOCUSATE SODIUM 100 MG (COLACE) CAP PO SCH ×2 (10:11→20:14)
[2021-07-28] MEDS: BENZONATATE 100 MG (TESSALON) CAPSULE PO SCH ×3 (10:12→20:13)
[2021-07-28] MEDS: ENOXAPARIN 30 MG/0.3 ML (LOVENOX) SYR SC SCH (10:13)
[2021-07-28] MEDS: PATCH REMOVAL TP SCH (10:13)
[2021-07-28] MEDS: polyethylene glycoL POWDER 17 GM (MIRALAX) PACK PO SCH (10:13)
[2021-07-28] MEDS: NICOTINE 21 MG (NICODERM) PATCH TD SCH (10:13)
[2021-07-28] MEDS: SENNOSIDES 8.6 MG (SENOKOT) TAB PO SCH (10:46)
[2021-07-28] MEDS: KCL 10 MEQ TAB (MICRO K) PO SCH ×2 (13:00→20:13)
[2021-07-28] MEDS: ALPRAZolam 0.5 MG (XANAX) TAB PO PRN (18:07)
[2021-07-29 00:15] VITALS: BP 153/80
[2021-07-29 04:38] VITALS: BP 147/83
[2021-07-29 07:13] LABS: BASOPHILS % (AUTO) 0 % (0-10); EOSINOPHILS % (AUTO) 0 % (0-10); HEMATOCRIT 38 % (35-52); LYMPHOCYTES # (AUTO) 2.1 10^3/uL (1.0-4.0); LYMPHOCYTES % (AUTO) 18 % (12-44); MEAN CORPUSCULAR HGB CONC 34 g/dL (32-36); MEAN CORPUSCULAR VOLUME 89 fL (80-99); MEAN PLATELET VOLUME 8.5 fL (9.0-12.2); MONOCYTES # (AUTO) 0.5 10^3/uL (0.0-1.0); MONOCYTES % (AUTO) 4 % (0-12); NEUTROPHILS % (AUTO) 78 % (42-75); PLATELET COUNT 576 10^3/uL (130-400); WHITE BLOOD COUNT 11.6 10^3/uL (4.3-11.0)
[2021-07-29 07:22] LABS: HEMOGLOBIN 12.9 g/dL (11.5-16.0); MEAN CORPUSCULAR HEMOGLOBIN 30 pg (25-34)
[2021-07-29 07:32] LABS: ALBUMIN 3.6 GM/DL (3.2-4.5); BILIRUBIN,TOTAL 0.5 MG/DL (0.1-1.0); CALCIUM 9.4 MG/DL (8.5-10.1); CREATININE SERUM 0.61 MG/DL (0.60-1.30); POTASSIUM 4.2 MMOL/L (3.6-5.0); TOTAL PROTEIN 7.5 GM/DL (6.4-8.2)
[2021-07-29 08:00] VITALS: BP 152/70
[2021-07-29] MEDS: cefTRIAXone 1 GM PRE-MIX 50 ML IV SCH (08:54)
[2021-07-29] MEDS: NICOTINE 21 MG (NICODERM) PATCH TD SCH (08:57)
[2021-07-29] MEDS: PATCH REMOVAL TP SCH (08:57)
[2021-07-29] MEDS: DOCUSATE SODIUM 100 MG (COLACE) CAP PO SCH ×2 (08:58→20:17)
[2021-07-29] MEDS: ENOXAPARIN 30 MG/0.3 ML (LOVENOX) SYR SC SCH (08:59)
[2021-07-29] MEDS: BENZONATATE 100 MG (TESSALON) CAPSULE PO SCH ×3 (08:59→20:18)
[2021-07-29] MEDS: KCL 10 MEQ TAB (MICRO K) PO SCH (08:59)
--- NOTE | 2021-07-29 09:05 | Physical Therapy Daily Note ---
PT Daily Note-Current Subjective Patient reports that she is doing better but still feels weak. Patient is sitting up in the chair and agrees to participate with physical therapy. Mental Status Patient Orientation: Person, Confused Transfers SCALE: Activities may be completed with or without assistive devices. 8-Mmkbgzalbd-xlqjbyv completes the activity by him/herself with no assistance from a helper. 5-Set-up or Clean-up Assistance-helper sets up or cleans up; patient completes activity. [place] assists only prior to or following the activity. 4-Supervision or Touching Assistance-helper provides verbal cues and/or touching/steadying and/or contact guard assistance as patient completes activity. Assistance may be provided throughout the activity or intermittently. 3-Partial/Moderate Assistance-helper does LESS THAN HALF the effort. [place] lifts, holds or supports trunk or limbs, but provides less than half the effort. 2-Substantial/Maximal Assistance-helper does MORE THAN HALF the effort. [place] lifts or holds trunk or limbs and provides more than half the effort. 0-Ptgdxdorg-ugogtf does ALL the effort. Patient does none of the effort to complete the activity. Or, the assistance of 2 or more helpers is required for the patient to complete the activity. If activity was not attempted, code reason: 7-Patient Refused. 9-Not Applicable-not attempted and the patient did not perform the activity before the current illness, exacerbation or injury. 10-Not Attempted due to Environmental Limitations-(lack of equipment, weather restraints, etc.). 88-Not Attempted due to Medical Conditions or Safety Concerns. Sit to Stand (QC): 5 Gait Training Distance: 150' Walk 10 feet (QC): 4 Walk 50 ft with 2 Turns(QC): 4 Walk 150 ft (QC): 4 Gait Assistive Device: FWW Patient ambulated for 150' with CGA. Patient reported that she feels weak and is unable to walk very far. Exercises Seated Therapy Exercises: Ankle pumps, Sit to stand (5), Long arc quads, Hip flexion, Hip abd/add Seated Reps: 15 Assessment Patient ambulated for 150' with CGA and FWW. Patient completed seated exercises with significant fatigue. Patient required rest breaks during seated exercises due to fatigue. Patient completed 5 sit to stands and reported significant fatigue after this exercise. Patient reported that she would like to go back home once she leaves the hospital. PT Short Term Goals Short Term Goals Time Frame: Jul 29, 2021 PT Retirement Goals Leading Firefighter Goals PT Leading Firefighter Goals Time Frame: Aug 02, 2021 Roll Left & Right (QC): 6 Sit to Lying (QC): 6 Lying-Sitting on Side/Bed(QC): 6 Sit to Stand (QC): 6 Chair/Zwp-ta-Jyjpk Xfer(QC): 6 Walk 10 feet (QC): 5 Walk 50ft with 2 Turns (QC): 5 Walk 150 ft (QC): 5 PT Plan Problem List Problem List: Activity Tolerance, Functional Strength, Safety, Balance, Gait, Transfer, Bed Mobility, ROM Treatment/Plan Treatment Plan: Continue Plan of Care Treatment Plan: Education, Functional Activity Kiet, Functional Strength, Gait, Safety, Therapeutic Exercise, Transfers Treatment Duration: Aug 02, 2021 Frequency: 6 times per week Estimated Hrs Per Day: .25 hour per day Patient and/or Family Agrees t: Yes Time/GCodes Time In: 825 Time Out: 836 Total Billed Treatment Time: 11 Total Billed Treatment 1 Visit FA 11 min JOHNATHON LEIGH PT Jul 29, 2021 09:05
--- NOTE | 2021-07-29 11:33 | Occ Therapy Progress Note ---
Therapy Progress Note Attempted to see pt 3x's today. 1st visit, pt was eating breakfast and family requested to wait until after breakfast. 2nd visit, pt had been assisted back to bed, family and nrsg tech stated that pt was worn out by PT and needed rest. 3rd visit, PALACIOS attempted to have pt sit up for lunch family stated that she would not eat the food here. Then PALACIOS attempted to have pt complete oral care, family stated that she had just put her dentures in and took care of that. PALACIOS attempted to have pt complete B UE exercises, family stated that pt was still tired from PT earlier this morning and needed her rest. Pt stated that PALACIOS could attempt to see pt for therapy tomorrow. Pt requested Xanax for pt. Reported this to nrs. 1 [id number] family refusal RAMYA STEPHEN Jul 29, 2021 11:33
[2021-07-29 11:42] VITALS: BP 133/60
[2021-07-29] MEDS: ALPRAZolam 0.5 MG (XANAX) TAB PO PRN ×2 (12:30→22:12)
--- NOTE | 2021-07-29 15:06 | Progress Note - Hospitalist ---
BRANDI CHEN 07/29/21 1506: Subjective HPI/CC On Admission Date Seen by Provider: Jul 29, 2021 Time Seen by Provider: 10:15 Chief complaint: Exacerbation of COPD with pneumonia and rectal mass History of present illness: This is a very debilitated 80-year-old who smokes 3 packs a day who presented to the ER with shortness of breath and weakness found to have pneumonia but a rectal mass consistent with neoplasm. Patient was placed on IV antibiotics and supportive care Dr. APOORVA helms perform biopsy. Subjective/Events-last exam Patient is sitting up in the chair at the time of the encounter. She is smiling, alert, and conversational. Her sister is present and states the patient tried to get out of bed last night, was confused, and did not sleep well. The patient recalls not sleeping well for reasons she is unsure of. She states her pain today is 8/10 after receiving pain medication. Prior to pain medication she rates her pain 10/10. She states she is comfortable sitting up in the chair. She denies any problems with defecation or urinating. She denies shortness of breath, chest pain, or abdominal pain. She reports having an appetite and feels steady ambulating with the walker. Plan is to discharge to [facility] for senior care care as soon as the facility is ready. BP 147/83, SpO2 89% on room air K 4.2, replacement successful WBC 11.6 Platelets 576, likely secondary to chronic smoking history, COPD Brief hospital course: Leti Moran is a 80 year old female who presented to the ED on 07/24/2021 with shortness of breath, dysuria, and a rectal mass with serosanguineous discharge. Patient has a PMHx significant for COPD, anxiety, and chronic cigarette use. CXR was suspect for developing pneumonia in right lower lobe. UA demonstrated acute cystitis. Patient was admitted for right lower lobe pneumonia and UTI. Ceftriaxone, Azithromycin, supplemental O2, and mood stabilizers were initiated. Surgery was consulted for evaluation of mass. On , CT of chest, abdomen, and pelvis demonstrated no findings of metastatic disease or patterns. Lungs showed signs of COPD, small pleural effusions, chronic scarring, atelectasis. Abdomen displayed no obstruction, abscess, or hemorrhage. 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 Mild hepatic steatosis noted. Patient was taken to the OR for resection of a 3cm anal polyp. Biopsy was taken and sent to Pathology. During the procedure an early sacral decubitus ulcer was noted. Patient tolerated procedure well. During the remainder of the patient's stay, she was treated for anxiety with Xanax, hypokalemia was managed with potassium replacement, and nicotine patches were implemented. PT and OT were evaluated and worked with the patient. Supportive care was continued on 07/28/2021 and senior care placement in [place], [place] began to be organized. Upon discharge, patient will begin Cefdinir 300mg PO BID for 2 days. This is a brief description of the kelby ent's stay and contains pertinent information regarding the patient's care. Full description of care can be found in the patient's chart. Date of admission: 07/24/2021 Date of discharge: 07/29/2021 Attending physician: Dr. Viry De La O Admission diagnosis: Right lower lobe pneumonia, UTI, Rectal mass Discharge diagnosis: Right lower lobe pneumonia, UTI, 3cm anal pedunculated polyp Secondary diagnoses: COPD, Anxiety, Chronic hydrocodone use, Hypokalemia, Debility, BMI 17.7 Consultations: Surgery Procedures: Resection of 3cm anal pedunculated polyp with biopsy Review of Systems General: Appetite Pulmonary: No Dyspnea Cardiovascular: No: Chest Pain, Edema Gastrointestinal: No: Nausea, Vomiting, Abdominal Pain Genitourinary: No Retention Neurological: No: Other (denies dizziness) Objective Exam Vital Signs Vital Signs Date Time Temp Pulse Resp B/P (MAP) Pulse Ox O2 Delivery O2 Flow Rate FiO2 07/29/21 11:42 37.1 83 22 133/60 (84) 92 OxyMask 2.00 Capillary Refill : Less Than 3 SecondsLess Than 3 Seconds General Appearance: No Apparent Distress, Thin Respiratory: No Accessory Muscle Use, No Respiratory Distress, Wheezing (on right posterior lung field) Cardiovascular: Regular Rate, Rhythm, No Murmur, Normal Peripheral Pulses (+2 right radial) Gastrointestinal: Non Tender, Soft, Other (absent bowel sounds) Extremity: No Pedal Edema Neurologic/Psychiatric: Alert Skin: Warm/Dry, Pallor Results/Procedures Lab Laboratory Tests 07/29/21 07:05 Patient resulted labs reviewed. Imaging: Reviewed Imaging Report Assessment/Plan Assessment and Plan Assess & Plan/Chief Complaint Assessment: Right lower lobe pneumonia UTI S/p transanal resection of 3cm pedunculated polyp, awaiting biopsy results COPD Anxiety Chronic hydrocodone use DVT prophylaxis Hypokalemia BMI 17.7 Advanced age Debility Sacral decubitus ulcer Thrombocytosis, likely secondary to chronic smoking history, COPD Plan: Discharge to senior care care in [place], [place] Ceftriaxone and azithromycin for pneumonia -> Cefdinir 300mg PO BID for 2 days Tessalon perles, Robitussin cough syrup for cough Lovenox for DVT prophylaxis Haloperidol, Ziprasidone, Lorazepam for mood stabilization Regular diet Bowel regimen, laxative therapy Replace K Pain control Anxiety management, Xanax 0.5mg Wound care and frequent position changes for decubitus ulcer VIRY DE LA O DO 07/30/21 0544: Subjective Subjective/Events-last exam Pt is doing a lot better Feels better Coarseness of breath sounds much improved Switching Rocephin to Omnicef BID Will go to [facility] tomorrow Objective Exam General Appearance: No Apparent Distress, WD/WN Assessment/Plan Assessment and Plan Assess & Plan/Chief Complaint DC to [place] Supervisory-Addendum Brief Verification & Attestation Participated in pt care: history, MDM, physical Personally performed: exam, history, MDM, supervision of care Care discussed with: Medical Student Procedures: n/a Results interpretation: Verified all documentation Verification and Attestation of Medical Student E/M Service A medical student performed and documented this service in my presence. I reviewed and verified all information documented by the medical student and made modifications to such information, when appropriate. I personally performed the physical exam and medical decision making. Viry De La O Jul 30, 2021,05:43 BRANDI CHEN Jul 29, 2021 15:06 VIRY DE LA O DO Jul 30, 2021 05:44
[2021-07-29 15:30] VITALS: BP 146/69
[2021-07-29 19:50] VITALS: BP 126/73
[2021-07-30 00:15] VITALS: BP 159/79
[2021-07-30 03:51] VITALS: BP 139/74
[2021-07-30 06:31] LABS: BASOPHILS % (AUTO) 0 % (0-10); EOSINOPHILS # (AUTO) 0.1 10^3/uL (0.0-0.3); EOSINOPHILS % (AUTO) 1 % (0-10); HEMATOCRIT 37 % (35-52); HEMOGLOBIN 12.5 g/dL (11.5-16.0); LYMPHOCYTES # (AUTO) 2.7 10^3/uL (1.0-4.0); LYMPHOCYTES % (AUTO) 22 % (12-44); MEAN CORPUSCULAR HEMOGLOBIN 30 pg (25-34); MEAN CORPUSCULAR HGB CONC 34 g/dL (32-36); MEAN CORPUSCULAR VOLUME 90 fL (80-99); MONOCYTES # (AUTO) 0.7 10^3/uL (0.0-1.0); MONOCYTES % (AUTO) 5 % (0-12); NEUTROPHILS # (AUTO) 8.9 10^3/uL (1.8-7.8); NEUTROPHILS % (AUTO) 72 % (42-75); PLATELET COUNT 522 10^3/uL (130-400); WHITE BLOOD COUNT 12.5 10^3/uL (4.3-11.0)
[2021-07-30 06:53] LABS: ALBUMIN 3.5 GM/DL (3.2-4.5); BILIRUBIN,TOTAL 0.5 MG/DL (0.1-1.0); CALCIUM 9.2 MG/DL (8.5-10.1); CREATININE SERUM 0.63 MG/DL (0.60-1.30); POTASSIUM 3.8 MMOL/L (3.6-5.0); TOTAL PROTEIN 7.1 GM/DL (6.4-8.2)
[2021-07-30 08:18] VITALS: BP 140/72
[2021-07-30] MEDS ORDERED: CEFD300C3 PO (08:38)
[2021-07-30] MEDS ORDERED: NICO1PAT34 TD (08:38)
[2021-07-30] MEDS ORDERED: ALPR0.5T7 PO (08:38)
[2021-07-30] MEDS ORDERED: HYDR-3817 PO (08:38)
--- NOTE | 2021-07-30 08:40 | Discharge Inst-Skilled Nursing ---
Discharge Inst-Skilled NF Reconcile Patient Problems Problems Reviewed?: Yes Chief Complaint Chief complaint: Exacerbation of COPD with pneumonia and rectal mass History of present illness: This is a very debilitated 80-year-old who smokes 3 packs a day who presented to the ER with shortness of breath and weakness found to have pneumonia but a rectal mass consistent with neoplasm. Patient was placed on IV antibiotics and supportive care Dr. APOORVA helms perform biopsy. Patient Instructions Patient Problems: COPD Goal: Emma Consult/Follow Up/Orders Follow Up Appt.: PCP 1 week Skilled NF Admit to: [facility] Certification (SNF) I certify that SNF services are required to be given on an inpatient basis because of the above named patient's need for [facility] care on a continuing basis for the conditions(s) for which he/she was receiving inpatient hospital services prior to his/her transfer to the SNF. Long-Term Facility Order: Nursing Services, Continuous Improvement Lead-Evaluate & Treat, Physical Therapy-Evaluate & Treat, Speech Language-Evaluate & Treat Oxygen Delivery Method: Room Air Discharge Diet: Semi-Solid Diet Resuscitation Status: Full Code New & Resume Previous Orders New Medications: Cefdinir (Cefdinir) 300 Mg Capsule 300 MG PO BID, #4 CAP Nicotine (Nicoderm Cq) 1 Each Patch.td24 21 MG TD DAILY@0900, #30 PATCH Continued Medications: Alprazolam (Alprazolam) 0.5 Mg Tablet 0.5 MG PO TID PRN for ANXIETY, #30 TAB (This prescription has been renewed) Hydrocodone/Acetaminophen (Hydrocodone-Acetamin 7.5-325) 1 Each Tablet 1 EA PO EVERY 3 HOURS PRN for PAIN-MODERATE (5-7), #15 TAB (This prescription has been renewed) Viry Valencia Jul 30, 2021 08:40 VIRY VALENCIA DO Jul 30, 2021 08:40
--- NOTE | 2021-07-30 08:41 | Discharge Summary ---
Discharge Summary Hospital Course Was the Problem List Reviewed?: Yes Problems/Dx: (1) UTI (urinary tract infection) Status: Acute Qualifiers: Qualified Codes: N30.00 - Acute cystitis without hematuria (2) Tubulovillous adenoma of rectum (3) Rectal mass Status: Acute (4) Community acquired pneumonia Status: Acute Qualifiers: Qualified Codes: J18.9 - Pneumonia, unspecified organism Hospital Course Date of Admission: Jul 24, 2021 at 21:27 Admission Diagnosis : Family Physician/Provider: Charlie Knutson MD Date of Discharge: 07/30/21 Discharge Diagnosis: Pneumonia, exacerbation of COPD, heavy smoker, cachexia, tubulovillous adenoma of the rectum completely resected managed by Dr. GUERIN Hospital Course: Pt had an uneventful 7 day hospital course after she was admitted for a UTI and rectal mass along with pneumonia and COPD exacerbation. She was placed on empiric antibiotics that were switched to oral antibiotics to transition to completion. Rectal mass was biopsied by Dr. Guerin which revealed a tubulovillous adenoma. Which will be managed by him as an outpatient. It appeared to be resected entirely. She was deemed stable for discharge and overall will require [facility] nursing care in my opinion. Labs and Pending Lab Test: Laboratory Tests 07/30/21 06:11: White Blood Count 12.5H, Red Blood Count 4.13, Hemoglobin 12.5, Hematocrit 37, Mean Corpuscular Volume 90, Mean Corpuscular Hemoglobin 30, Mean Corpuscular Hemoglobin Concent 34, Red Cell Distribution Width 12.5, Platelet Count 522H, Mean Platelet Volume 9.0, Immature Granulocyte % (Auto) 1, Neutrophils (%) (Auto) 72, Lymphocytes (%) (Auto) 22, Monocytes (%) (Auto) 5, Eosinophils (%) (Auto) 1, Basophils (%) (Auto) 0, Neutrophils # (Auto) 8.9H, Lymphocytes # (Auto) 2.7, Monocytes # (Auto) 0.7, Eosinophils # (Auto) 0.1, Basophils # (Auto) 0.0, Immature Granulocyte # (Auto) 0.1, Sodium Level 133L, Potassium Level 3.8, Chloride Level 99, Carbon Dioxide Level 23, Anion Gap 11, Blood Urea Nitrogen 7, Creatinine 0.63, Estimat Glomerular Filtration Rate 91, BUN/Creatinine Ratio 11, Glucose Level 104, Calcium Level 9.2, Corrected Calcium 9.6, Total Bilirubin 0.5, Aspartate Amino Transf (AST/SGOT) 19, Alanine Aminotransferase (ALT/SGPT) 11, Alkaline Phosphatase 69, Total Protein 7.1, Albumin 3.5 Microbiology 07/24/21 Urine Culture - Final, Complete Klebsiella pneumoniae 07/24/21 Blood Culture - Preliminary, Resulted No growth Home Meds Active Nicoderm Cq (Nicotine) 1 Each Patch.td24 21 Mg TD DAILY@0900 Cefdinir 300 Mg Capsule 300 Mg PO BID Alprazolam 0.5 Mg Tablet 0.5 Mg PO TID PRN Hydrocodone-Acetamin 7.5-325 (Hydrocodone/Acetaminophen) 1 Each Tablet 1 Ea PO EVERY 3 HOURS PRN Assessment/Pt Instructions [facility] rounds at [place] Discharge Planning: <30 minutes discharge planning Discharge Instructions Discharge Diet: No Restrictions, Semi-Solid Diet Discharge Physical Examination Vital Signs Vital Signs Date Time Temp Pulse Resp B/P (MAP) Pulse Ox O2 Delivery O2 Flow Rate FiO2 07/30/21 08:18 36.5 74 18 140/72 (94) 94 Room Air 07/29/21 11:42 2.00 General Appearance: No Apparent Distress, WD/WN, Chronically ill, Thin Respiratory: Lungs Clear, Normal Breath Sounds Cardiovascular: Regular Rate, Rhythm Neurologic/Psychiatric: Alert, Oriented x3, Depressed Affect, Disoriented Allergies: Coded Allergies: bacitracin (Unverified Allergy, Unknown, HIVES, 09/22/13) lidocaine (Unverified Allergy, Unknown, HIVES, 09/22/13) neomycin (Unverified Allergy, Unknown, HIVES, 09/22/13) polymyxin B (Unverified Allergy, Unknown, HIVES, 09/22/13) pramoxine (Unverified Allergy, Unknown, HIVES, 09/22/13) Discharge Summary Date of Admission Jul 24, 2021 at 21:27 Date of Discharge Discharge Date: Jul 30, 2021 Admission Diagnosis Assessment: Right lower lobe pneumonia Exacerbation of COPD Cachexia Rectal mass Plan: Pneumonia treatment Biopsy per Dr. GUERIN Discharge Diagnosis DC to [place] LIZBET DE LA O DO Jul 30, 2021 08:41
--- NOTE | 2021-07-30 08:55 | Physical Therapy Daily Note ---
PT Daily Note-Current Subjective Patient presents sitting in her chair. Patient sister reports that therapy made her really tired yesterday afternoon and she didn't want to do anything the rest of the day. Mental Status Patient Orientation: Person, Time Transfers SCALE: Activities may be completed with or without assistive devices. 8-Ovqfqtcfeb-ygeewsi completes the activity by him/herself with no assistance from a helper. 5-Set-up or Clean-up Assistance-helper sets up or cleans up; patient completes activity. [place] assists only prior to or following the activity. 4-Supervision or Touching Assistance-helper provides verbal cues and/or touching/steadying and/or contact guard assistance as patient completes activity. Assistance may be provided throughout the activity or intermittently. 3-Partial/Moderate Assistance-helper does LESS THAN HALF the effort. [place] lifts, holds or supports trunk or limbs, but provides less than half the effort. 2-Substantial/Maximal Assistance-helper does MORE THAN HALF the effort. [place] lifts or holds trunk or limbs and provides more than half the effort. 4-Jocrlquve-ltgfpm does ALL the effort. Patient does none of the effort to complete the activity. Or, the assistance of 2 or more helpers is required for the patient to complete the activity. If activity was not attempted, code reason: 7-Patient Refused. 9-Not Applicable-not attempted and the patient did not perform the activity before the current illness, exacerbation or injury. 10-Not Attempted due to Environmental Limitations-(lack of equipment, weather restraints, etc.). 88-Not Attempted due to Medical Conditions or Safety Concerns. Sit to Stand (QC): 4 Gait Training Does the Patient Walk?: Yes Distance: 150' Walk 10 feet (QC): 4 Walk 50 ft with 2 Turns(QC): 4 Walk 150 ft (QC): 4 Gait Assistive Device: FWW Exercises Seated Therapy Exercises: Ankle pumps, Long arc quads, Hip flexion Assessment Patient completed ambulation and seated exercises but reported significant fatigue. Patient did not want to perform sit to stand exercises today because they made her so tired yesterday. Patient fatigues quickly with ambulation and is unable to ambulate farther distances due to fatigue. Patient requires cues for safe sit to stand transfers and to take her walker all the way to the chair with her when sitting. PT Short Term Goals Short Term Goals Time Frame: Jul 29, 2021 PT Penitentiary Goals Powder Blender Goals PT Penitentiary Goals Time Frame: Aug 02, 2021 Roll Left & Right (QC): 6 Sit to Lying (QC): 6 Lying-Sitting on Side/Bed(QC): 6 Sit to Stand (QC): 6 Chair/Pkf-jg-Sqiow Xfer(QC): 6 Walk 10 feet (QC): 5 Walk 50ft with 2 Turns (QC): 5 Walk 150 ft (QC): 5 PT Plan Problem List Problem List: Activity Tolerance, Functional Strength, Safety, Balance, Gait, Transfer, Bed Mobility, ROM Treatment/Plan Treatment Plan: Continue Plan of Care Treatment Plan: Education, Functional Activity Kiet, Functional Strength, Gait, Safety, Therapeutic Exercise, Transfers Treatment Duration: Aug 02, 2021 Frequency: 6 times per week Estimated Hrs Per Day: .25 hour per day Patient and/or Family Agrees t: Yes Time/GCodes Time In: 830 Time Out: 841 Total Billed Treatment Time: 11 Total Billed Treatment 1 Visit FA 11 min JOHNATHON LEIGH PT Jul 30, 2021 08:55
[2021-07-30] MEDS: BENZONATATE 100 MG (TESSALON) CAPSULE PO SCH (08:57)
[2021-07-30] MEDS: NICOTINE 21 MG (NICODERM) PATCH TD SCH (08:57)
[2021-07-30] MEDS: ENOXAPARIN 30 MG/0.3 ML (LOVENOX) SYR SC SCH (08:57)
[2021-07-30] MEDS: DOCUSATE SODIUM 100 MG (COLACE) CAP PO SCH (08:57)
[2021-07-30] MEDS: PATCH REMOVAL TP SCH (08:58)
[2021-07-30] MEDS ORDERED: CEFDINIR 300 MG (OMNICEF) CAP PO SCH (09:00)
--- NOTE | 2021-07-30 10:25 | Progress Note ---
BRANDI CHEN 07/30/21 1025: Progress Note Brief hospital course: Leti Moran is a 80 year old female who presented to the ED on 07/24/2021 with shortness of breath, dysuria, and a rectal mass with serosanguineous discharge. Patient has a PMHx significant for COPD, anxiety, and chronic cigarette use. CXR was suspect for developing pneumonia in right lower lobe. UA demonstrated acute cystitis. Patient was admitted for right lower lobe pneumonia and UTI. Ceftriaxone, Azithromycin, supplemental O2, and mood stabilizers were initiated. Surgery was consulted for evaluation of mass. On 07/25/2021, CT of chest, abdomen, and pelvis demonstrated no findings of metastatic disease or patterns. Lungs showed signs of COPD, small pleural effusions, chronic scarring, atelectasis. Abdomen displayed no obstruction, abscess, or hemorrhage. 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 Mild hepatic steatosis noted. Patient was taken to the OR for resection of a 3cm anal polyp. Biopsy was taken and sent to Pathology. Pathology report revealed the polyp was a tubulovillous adenoma, resection margin free of adenomatous change. During the procedure an early sacral decubitus ulcer was noted. Patient tolerated procedure well. During the remainder of the patient's stay, she was treated for anxiety with Xanax, hypokalemia was managed with potassium replacement, and nicotine patches were implemented. PT and OT evaluated and worked with the patient. Supportive care was continued on 07/28/2021 and detention placement in [place], [place] began to be organized. On 07/29/2021, patient began Cefdinir 300mg PO BID, duration [address] Barba will be consulted to organize plan going forward regarding patient's pathology report. Upon discharge patient will receive detention care in [place]. This is a brief description of the patient's stay and contains pertinent information regarding the patient's care. Full description of care can be found in the patient's chart. Date of admission: 07/24/2021 Date of discharge: 07/30/2021 Attending physician: Dr. Viry De La O Admission diagnosis: Right lower lobe pneumonia, UTI, Rectal mass Discharge diagnosis: Right lower lobe pneumonia, UTI, 3cm anal pedunculated polyp Secondary diagnoses: COPD exacerbation, COPD, Anxiety, Chronic hydrocodone use, Hypokalemia, Debility, BMI 17.7 Consultations: Surgery, PT, OT Procedures: Resection of 3cm anal pedunculated polyp with biopsy VIRY DE LA O DO 07/31/21 0524: Supervisory-Addendum Brief Verification & Attestation Participated in pt care: history, MDM, physical Personally performed: exam, history, MDM, supervision of care Care discussed with: Medical Student Procedures: n/a Results interpretation: Verified all documentation Verification and Attestation of Medical Student E/M Service A medical student performed and documented this service in my presence. I reviewed and verified all information documented by the medical student and made modifications to such information, when appropriate. I personally performed the physical exam and medical decision making. Viry De La O, Jul 31, 2021,05:24 BRANDI CHEN Jul 30, 2021 10:25 VIRY DE LA O DO Jul 31, 2021 05:24
--- NOTE | 2021-07-30 11:14 | Occ Therapy Progress Note ---
Therapy Progress Note Pt seated EOB, family states she just returned from the bathroom and planning on discharging soon. Pt and family decline OT services at this time due to pt leaving soon and wanting pt to save her energy. OT educated pt and family on benefits of OT but they continued to decline services today. OT will attempt tx next available date if pt is still admitted to hospital. 1, refusal 1110 ULYSSES TRAVIS OT Jul 30, 2021 11:14
== END 2021-07-30 11:30 | DRG 987 ==
LOC: EDUNIT# 18:44 → ER 18:45 → 4TH 21:27
PROVIDERS: ADMIT Internal Medicine; ATTEND Internal Medicine
PROC: 3E0T3BZ Introduction of Anesthetic Agent into Peripheral Nerves and Plexi, Percutaneous Approach (ICD-10-PCS; 2021-07-25)
PROC: 0DBP0ZX Excision of Rectum, Open Approach, Diagnostic (ICD-10-PCS; principal; 2021-07-25 12:17)
DX: J44.1 Chronic obstructive pulmonary disease with (acute) exacerbation (principal); J18.9 Pneumonia, unspecified organism; N39.0 Urinary tract infection, site not specified; R64 Cachexia; Z68.1 Body mass index [BMI] 19.9 or less, adult; D12.8 Benign neoplasm of rectum; J44.0 Chronic obstructive pulmonary disease with (acute) lower respiratory infection; F41.9 Anxiety disorder, unspecified; E87.6 Hypokalemia; R53.81 Other malaise; Z79.899 Other long term (current) drug therapy; M79.7 Fibromyalgia; M19.90 Unspecified osteoarthritis, unspecified site; F17.210 Nicotine dependence, cigarettes, uncomplicated; Z20.822 Contact with and (suspected) exposure to COVID-19
CPT/HCPCS: 36415; 51702; 71045; 71260; 74177; 80053; 81000; 83605; 84145; 85007; 85025; 85027; 85610; 85730; 86141; 87040; 87077; 87088; 87186; 87636; 88305; 94664; 96365; 96375

== ENCOUNTER 2021-09-11 20:24 | Emergency (ER) | payer MEDICARE, MEDICAID ==
[~2021-09-11] VITALS: Ht 155 cm; Wt 44.5 kg
[~2021-09-11 20:24] MED LIST changes: +ALPR0.5T7 PO; +CEFD300C3 PO; +HYDR-3817 PO; +NICO1PAT34 TD
[2021-09-11 20:50] VITALS: BP 144/69
[2021-09-11] MEDS ORDERED: ANTACID SUSP 30 ML UDC (MYLANTA) PO ONE (21:45)
[2021-09-11] MEDS ORDERED: LIDOCAINE 2% VISCOUS 15 ML UDC PO ONE (21:45)
--- NOTE | 2021-09-11 21:54 | ED GI ---
General Chief Complaint: Foreign Body Stated Complaint: SOMETHING STUCK IN THROAT Nursing Triage Note: Pt arrives w/ daughter c/o "piece of crispy chicken stuck in throat." Pt ambulated to room, and attached to NIBP, and SpO2 monitors. Pt currently starting treatment for UTI dx earlier today. Source of Information: Patient Exam Limitations: No Limitations (CASTILLO PRYOR APRN) History of Present Illness Date Seen by Provider: Sep 11, 2021 Time Seen by Provider: 21:40 Initial Comments To ER by daughter with reports of a piece of crispy chicken sandwich stuck in her throat at the the sternal notch. She was able to drink some water at home and was able to swallow it. She ate some saltines and was able to swallow them as well. She has had some recent troubles with swallowing after a hospitalization for pneumonia. She feels like food gets stuck in her upper throat fairly frequently. She has never had a swallow study or EGD before. She lives with her daughter. Timing/Duration: 1 Hour Severity/Quality: Cramping Location: Other Radiation: No Radiation Activities at Onset: None (CASTILLO PRYOR APRN) Allergies and Home Medications Allergies Coded Allergies: bacitracin (Unverified Allergy, Unknown, HIVES, 09/22/13) lidocaine (Unverified Allergy, Unknown, HIVES, 09/22/13) neomycin (Unverified Allergy, Unknown, HIVES, 09/22/13) polymyxin B (Unverified Allergy, Unknown, HIVES, 09/22/13) pramoxine (Unverified Allergy, Unknown, HIVES, 09/22/13) Patient Home Medication List Home Medication List Reviewed: Yes (CASTILLO PRYOR APRN) Alprazolam (Alprazolam) 0.5 Mg Tablet, 0.5 MG PO TID PRN for ANXIETY Prescribed by: LIZBET DE LA O on 07/30/21 08 Cefdinir (Cefdinir) 300 Mg Capsule, 300 MG PO BID Prescribed by: LIZBET DE LA O on 07/30/21 0838 Hydrocodone/Acetaminophen (Hydrocodone-Acetamin 7.5-325) 1 Each Tablet, 1 EA PO EVERY 3 HOURS PRN for PAIN-MODERATE (5-7) Prescribed by: LIZBET DE LA O on 07/30/21 08 Nicotine (Nicoderm Cq) 1 Each Patch.td24, 21 MG TD DAILY@0900 Prescribed by: LIZBET DE LA O on 07/30/21 0838 Review of Systems Review of Systems Constitutional: see HPI EENTM: No Symptoms Reported Respiratory: No Symptoms Reported Cardiovascular: No Symptoms Reported Gastrointestinal: See HPI Genitourinary: No Symptoms Reported Musculoskeletal: no symptoms reported Skin: no symptoms reported Psychiatric/Neurological: No Symptoms Reported Endocrine: No Symptoms Reported Hematologic/Lymphatic: No Symptoms Reported (CASTILLO PRYOR APRN) Past Oxdhrnl-Sozfna-Bjydcf Hx Immunizations Up To Date Tetanus Booster (TDap): Less than 5yrs First/Initial COVID19 Vaccinat: 12/2020 Second COVID19 Vaccination Mikey: SPRING 2020 Third COVID19 Vaccination Date: SPRING 2020 (CASTILLO PRYOR APRN) Seasonal Allergies Seasonal Allergies: No (CASTILLO PRYOR APRN) Past Medical History Appendectomy, Breast, Gallbladder, Hysterectomy COPD, Emphysema 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 History: Hysterectomy Kidney Stones, UTI-Chronic Arthritis, Fibromyalgia Cataract Hearing Impairment: Hard of Hearing Anxiety Adverse Reaction/Blood Tranf: No (CASTILLO PRYOR APRN) Family Medical History Cancer 03 FATHER 03 MOTHER 09 BROTHER 09 SISTER Cancer of colon 09 SISTER Congenital heart disease 09 BROTHER Family history: Arthritis 03 FATHER 03 MOTHER 09 BROTHER 09 SISTER Family history: Asthma 09 SISTER Family history: Diabetes mellitus 09 BROTHER Family history: Gastrointestinal disease 03 FATHER 09 BROTHER Family history: Hypertension 03 MOTHER 09 BROTHER Heart disease 03 MOTHER 09 BROTHER History of - respiratory disease 03 FATHER 03 MOTHER 09 BROTHER Myocardial infarction 03 MOTHER Prostate cancer 03 FATHER 09 BROTHER Stroke 03 MOTHER No Family History of: Abdominal aortic aneurysm Alcoholism Congestive heart failure Dementia Family history: Allergy Family history: Alzheimer's disease Family history: Breast disease Family history: Cardiovascular disease Family history: Thyroid disorder History of - anemia Kidney disease Parkinson's disease Seizure disorder Cancer (CASTILLO PRYOR APRN) Physical Exam Vital Signs Vital Signs - First Documented 09/11/21 20:50 Temp 37.8 Pulse 81 Resp 20 B/P (MAP) 144/69 (94) Pulse Ox 97 O2 Delivery Room Air (DAVID MCELROY DO) Vital Signs Capillary Refill : (CASTILLO PRYOR APRN) Height/Weight/BMI Height: 5'4.00" Weight: 125lbs. oz. 56.754016zv; 18.00 BMI Method:Stated General Appearance: WD/WN, no apparent distress, thin, other (Alert and oriented no distress. Frail appearing. She swallows her own secretions. There is no stridor there is no wheezing. She points to the top of the sternal notch as the site of her discomfort. She was provided a glass of water and she was able to swallow this without regurgitation. We then gave a GI cocktail and she is currently over in the CT department getting a scan of her chest. Would suspect either esophageal spasm versus abrasion rather than food impaction.) HEENT: PERRL/EOMI Neck: non-tender, full range of motion Respiratory: no respiratory distress, no accessory muscle use Cardiovascular: regular rate, rhythm, no edema Gastrointestinal: normal bowel sounds, non tender Neurologic/Psychiatric: alert, normal mood/affect, oriented x 3 Skin: normal color, warm/dry (CASTILLO PRYOR APRN) Progress/Results/Core Measures Results/Orders Medications Given in ED Current Medications Medications Dose Ordered Sig/Marga Route Start Time Stop Time Status Last Admin Dose Admin Al Hydrox/Mg Hydrox/Simethicone 30 ml ONCE ONCE PO 09/11/21 21:45 09/11/21 21:46 DC 09/11/21 21:56 30 ML Lidocaine HCl 10 ml ONCE ONCE PO 09/11/21 21:45 09/11/21 21:46 DC 09/11/21 21:57 10 ML (DAVID MCELROY DO) Vital Signs/I&O 09/11/21 20:50 Temp 37.8 Pulse 81 Resp 20 B/P (MAP) 144/69 (94) Pulse Ox 97 O2 Delivery Room Air (LILIBETHDAVID K DO) Blood Pressure Mean: 94 Departure Communication (Admissions) 4881-No food seen within the esophagus on CT though it is compressed anteriorly by the C-spine hardware and at the same location (thoracic inlet) it is compressed in a posterior fashion by enlarged thyroid gland. Discussed with the patient and her daughter the need for a soft diet, pudding, mashed potatoes, Ensure and boost supplements. Given her frail appearance I am not sure that she would be a good candidate for surgical intervention. She will follow up with Dr. Booth. (CASTILLO PRYOR APRN) Impression Primary Impression: Esophageal disorder Disposition: 01 HOME, SELF-CARE Condition: Stable Departure-Patient Inst. Decision time for Depature: 22:36 (CASTILLO PRYOR APRN) Referrals: NICKI ZAYAS MD (PCP/Family) Primary Care Physician Patient Instructions: NO INSTRUCTIONS GIVEN Add. Discharge Instructions: 1. Soft diet of mashed potatoes or pudding consistency. Call Dr. Booth tomorrow to make an appointment to be seen for follow-up. Return to ER for any worsening in the meantime. All discharge instructions reviewed with patient and/or family. Voiced understanding. ATTENDING PHYSICIAN NOTE: I WAS PHYSICALLY PRESENT ER PHYSICIAN, BUT I WAS NOT INVOLVED IN ANY DECISION MAKING OR ANY CARE OF THIS PATIENT. (DAVID MCELROY DO) Copy Copies To 1: GUILLERMINA BOOTH MD, PETER J APRN Sep 11, 2021 21:54 DAVID MCELROY DO Sep 12, 2021 00:51
--- NOTE | 2021-09-11 22:19 | Diagnostic Imaging Report ---
PROCEDURE: CT chest without contrast. TECHNIQUE: Multiple contiguous axial images were obtained through the chest without the use of intravenous contrast. Auto Exposure Controls were utilized during the CT exam to meet ALARA standards for radiation dose reduction. INDICATION: Sensation of esophageal foreign body. COMPARISON: 07/25/2021. FINDINGS: There is continued scarring in the lung apices, bilaterally. There is no evidence of new pulmonary mass or infiltrate. There is no significant pleural or pericardial fluid. Note is made of mild hiatal hernia. Coronary artery calcifications are noted. There is continued enlargement of the thyroid gland at the thoracic inlet consistent with goiter which could put pressure on the adjacent esophagus. There is anterior cervical spinal fusion in the mid to lower cervical spine with somewhat atypical anterior displacement of the plate with respect to vertebral bodies. IMPRESSION: There is no evidence of esophageal foreign body although there is thyroid enlargement at the thoracic inlet which could put pressure upon the esophagus and there is also somewhat atypical anterior deviation of cervical fusion plate with respect to cervical spine vertebral bodies which may also contribute. Otherwise, there is no evidence of acute abnormality within the thorax. Dictated by: Dictated on workstation # [id number]
== END 2021-09-11 23:00 | disposition home or self-care (01) ==
LOC: EDUNIT# 20:24 → ER 20:27
DX: K22.9 Disease of esophagus, unspecified (principal)
CPT/HCPCS: 71250

== ENCOUNTER → 2021-09-13 | Outpatient (CLI) | payer MEDICARE, MEDICAID ==
--- NOTE | 2021-09-13 11:17 | Diagnostic Imaging Report ---
INDICATION: Dysphagia and choking episode. Study was performed in conjunction with speech pathology. Video fluoroscopy was performed during swallowing of barium of multiple consistencies. Total of 2.0 minutes of fluoroscopic time was utilized. There were episodes of laryngeal penetration during swallowing of thin barium with a teaspoon and through a straw. There is also episode of penetration during nectar consistency. Honey thick consistency was unremarkable. Patient also ingested applesauce and cracker consistency without penetration or aspiration. There was improved penetration at the end of the study when the patient ingested thin barium with a cup. Images demonstrate significant postoperative changes of cervical spine with anterior plate and screws extending from approximately C3-C7. IMPRESSION: Modified barium swallow, as described, demonstrates episodes of penetration during the swallowing of thin barium and nectar thick consistency. This did improve at the end of the study. No aspiration was observed. Dictated by: Dictated on workstation # [id number]
== END ==
LOC: RAD 10:30
PROVIDERS: ATTEND Internal Medicine
DX: E04.9 Nontoxic goiter, unspecified (principal); R13.12 Dysphagia, oropharyngeal phase
CPT/HCPCS: 74230

== ENCOUNTER → 2021-10-03 | Outpatient (CLI) | payer MEDICARE, MEDICAID ==
--- NOTE | 2021-10-03 18:21 | Diagnostic Imaging Report ---
PROCEDURE: US Thyroid. TECHNIQUE: Multiple real-time grayscale images were obtained of the thyroid in various projections. INDICATION: Thyromegaly. COMPARISON: August 10, 2013. FINDINGS: The right lobe of the thyroid gland is mildly enlarged measuring 4.7 x 2.7 x 2.4 cm. It demonstrates a diffusely heterogeneous echotexture with diffusely increased vascularity throughout. 0.5 cm peripherally calcified nodule within the mid right thyroid lobe is again identified and unchanged since 2013, therefore, this is benign. No discrete right thyroid nodule. The left lobe of the thyroid gland is enlarged measuring 5.8 x 3.2 x 3.2 cm. It demonstrates a diffusely heterogeneous echotexture with diffusely increased vascularity throughout. No discrete thyroid nodule. The isthmus is thickened and heterogeneous with increased vascularity without discrete nodule. IMPRESSION: Enlarged and hypervascular thyroid gland, appearing similar to the prior examination. This is favored to relate to underlying thyroiditis, including possible Graves' disease. Benign stable peripherally calcified subcentimeter right thyroid nodule without additional suspicious focal thyroid nodule. Dictated by: Dictated on workstation # [id number]
--- NOTE | 2021-10-03 19:33 | Diagnostic Imaging Report ---
Procedure: CT cervical spine without contrast. Technique: Multiple contiguous axial images were obtained through the cervical spine without the use of intravenous contrast. Sagittal and coronal reformations were then performed. Auto Exposure Controls were utilized during the CT exam to meet ALARA standards for radiation dose reduction. Date: October 03, 2021. Indication: 81-year-old female, neck pain and loss of range of motion. History of prior cervical spine surgery. Comparison: MRI of cervical spine March 30, 2015. CT cervical spine October 20, 2014. Findings: There is anterior cervical spine fusion hardware spanning C3 through C7. The C7 fixation screws extend into the very anterior aspect of the C7 vertebral body and the C3 fixation screws extending to the anterior aspect of the C3 vertebral body near the superior endplate. The C5 fixation screws are extraosseous in location. The sideplate is from the anterior vertebral body margins by up to 1.7 cm at the level of C5. There are partial corpectomy changes of C4 and C6 with intervertebral body fusion. There is complete fusion spanning from C5 through C7 and incomplete fusion spanning from C4 through C6 although without clearly identified pseudoarthrosis. There is a focal kyphosis centered at the level of C5. There is mild spinal stenosis at C5. There is no identified facet joint subluxation or dislocation. There are mild facet degenerative changes of the cervical spine. The nonoperative cervical disc heights are well preserved. There is arthritis at the C1-C2 articulation. There is bulging of the anterior soft tissues at the level of the cervical spine hardware. The overall appearance of the hardware is unchanged dating back to at least October 20, 2014 as well as the focal kyphosis centered at the level of C5. There is no identified acute fracture. There is no cortical or aggressive bone destruction. There is opacification in the lung apices, bilaterally, also present dating back to 2014 compatible with pleuroparenchymal scarring. The thyroid is diffusely prominent size. There are coarse appearing right thyroid calcifications. Impression: 1. Anterior cervical spinal fusion hardware spanning C3 through C7, as described above. The fixation screws are extraosseous in location at C5 and there is significant separation of the sideplate from the anterior vertebral body margins measuring up to 1.7 cm. This side plate does exert mild mass effect in the posterior aspect of the airway. There is focal kyphosis at the level of C5 with mild spinal stenosis at this level. This overall appearance is essentially unchanged since October 20, 2014. 2. No interval acute osseous abnormality. 3. Diffusely enlarged thyroid gland. Dictated by: Dictated on workstation # [id number]
== END ==
LOC: RAD 14:15
PROVIDERS: ATTEND Internal Medicine
DX: E04.9 Nontoxic goiter, unspecified (principal); M48.02 Spinal stenosis, cervical region; M40.292 Other kyphosis, cervical region; Z98.1 Arthrodesis status
CPT/HCPCS: 72125; 76536

== ENCOUNTER 2022-03-06 05:36 | Outpatient (CLI) | payer MEDICARE, MEDICAID ==
[~2022-03-06] VITALS: Ht 162.6 cm; Wt 63.0 kg
[2022-03-06] MEDS ORDERED: DULO30CA3 PO (11:09)
== END 2022-03-06 11:16 | disposition home or self-care (01) ==
LOC: PREOP 05:36
PROVIDERS: ATTEND Surgery
DX: Z01.818 Encounter for other preprocedural examination (principal)

== ENCOUNTER 2022-03-12 12:35 | Day surgery (SDC) | payer MEDICARE, MEDICAID ==
--- NOTE | 2022-03-06 07:16 | HISTORY AND PHYSICAL ---
DATE OF SERVICE: DATE OF ADMISSION: 03/12/2022. ATTENDING PRIMARY CARE PHYSICIAN: Dr. Josh Reyes. HISTORY OF PRESENT ILLNESS: The patient is a 81-year-old female known to us. She was admitted on 07/24/2021 with cough and shortness of breath and was found to have consolidation of the right lower lobe and consistent with pneumonia and was admitted and treated. She was COVID negative and had been vaccinated. Upon further examination, she was found to have an exophytic mass of the anus a few centimeters in size and this was consistent with significant rectal prolapse; however, on that admission, we did do a colonoscopy and the lesion was removed and 3 cm in size and consistent with a tubulovillous adenoma. On today's visit, she reports that she has had increased abdominal distention. She states that she does have a bowel movement daily; however, at times stools may be well-formed and other times, may be more loose. Upon examination, she does have a slight distention of the abdomen, which is nonpainful. PAST MEDICAL HISTORY: COPD, chronic urinary tract infection, fibromyalgia, degenerative joint disease, nephrolithiasis, bilateral cataracts, anxiety, peptic ulcer disease. PAST SURGICAL HISTORY: Open appendectomy 1978, total hysterectomy 1981, bilateral breast biopsy, laparoscopic cholecystectomy in . ALLERGIES: NEOMYCIN, POLYMYXIN B, PRAMOXINE, BACITRACIN, LIDOCAINE. MEDICATIONS: Alprazolam 0.25 mg t.i.d., Keflex 500 mg t.i.d., hydrocodone p.r.n., Bactrim b.i.d., tramadol p.r.n., Cymbalta daily, Colace daily. SOCIAL HISTORY: Positive smoke, 45 pack years. Negative alcohol. VITAL SIGNS: Blood pressure 139/81. Current weight 138.5 pounds at 5 feet 4 inches. REVIEW OF SYSTEMS: Well-nourished female currently in no acute distress. She is not experiencing any shortness of breath or difficulty breathing. No chest pain, palpitations, diaphoresis. No nausea, vomiting with some abdominal distention and a combination of formed stools as well as loose stools. No known red blood per rectum, no dark tarry stools. No fever, chills, no recent inadvertent weight loss. All other review of systems negative. PHYSICAL EXAMINATION: CHEST: Scattered rales and wheezes bilaterally. HEART: Regular, no murmurs. EXTREMITIES: No lower extremity edema, negative Homans sign. HEENT: No scleral icterus. NECK: No cervical lymphadenopathy. ABDOMEN: Soft with distention, mild tenderness. No peritoneal signs. No hernias. SKIN: Warm, dry. 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 Due to this history, we will recommend a followup colonoscopy, which we will schedule. Job ID: [id number] DocumentID: [id number] Dictated Date: 03/04/2022 16:18:09 Cd Mixer Date: 03/04/2022 16:49:07 Dictated By: SELENE GUERIN MD
[~2022-03-12] VITALS: Ht 163 cm; Wt 63.0 kg
[~2022-03-12 12:35] MED LIST changes: +DULO30CA3 PO
[2022-03-12] MEDS ORDERED: LACTATED RINGERS 1,000 ML IV ONE (12:39)
[2022-03-12] MEDS ORDERED: LACTATED RINGERS 1,000 ML IV STA (12:41)
[2022-03-12] MEDS ORDERED: LIDOCAINE JELLY 2% 6 ML SYRINGE MM PRN (12:45)
[2022-03-12 12:55] VITALS: BP 155/76
--- NOTE | 2022-03-12 12:59 | Progress Note-Pre Operative ---
Pre-Operative Progress Note Date of Available H&P: Mar 12, 2022 Date H&P Reviewed: Mar 12, 2022 Time H&P Reviewed: 12:30 History & Physical: No changes noted Pre-Operative Diagnosis: hx large adenomatous rectal polyp SELENE GUERIN MD Mar 12, 2022 12:59
[2022-03-12] MEDS ORDERED: ONDANSETRON 4 MG (ZOFRAN) ORAL DISSOLVE TAB PO PRN (13:00)
[2022-03-12] MEDS ORDERED: ONDANSETRON 4 MG/2 ML (SDV) Z0FRAN IVP PRN (13:00)
--- NOTE | 2022-03-12 13:01 | Discharge Inst-Surgical ---
D/C Lap Instructions-APOORVA Follow Up Activity as tolerated High Fiber Diet 25g or more per day Avoid Alcohol, Caffeine, Spicy [place] and Acid foods. Drink 64 fluid oz or more of fluids per day. Symptoms to Report: Fever over 101 degree F, Nausea/Vomiting If any problems/questions: Contact your physician or go to Emergency Room SELENE GUERIN MD Mar 12, 2022 13:00
[2022-03-12] MEDS ORDERED: PROPOFOL INJECTION 50 ML IV ONE (13:56)
[2022-03-12 14:35] VITALS: BP 125/67
[2022-03-12 14:40] VITALS: BP 134/69
--- NOTE | 2022-03-12 14:44 | Anesthesia-General Post-Op ---
MAC Patient Condition Mental Status/LOC: Same as Preop Cardiovascular: Satisfactory Nausea/Vomiting: Absent Respiratory: Satisfactory Pain: Controlled Complications: Absent Post Op Complications Complications None Follow Up Care/Instructions Patient Instructions None needed. Anesthesiology Discharge Order Discharge Order Patient is doing well, no complaints, stable vital signs, no apparent adverse anesthesia problems. No complications reported per nursing. DAVID MEJÍA DO Mar 12, 2022 14:44
[2022-03-12 14:45] VITALS: BP 133/72
[2022-03-12 15:15] VITALS: BP 146/71
--- NOTE | 2022-03-12 15:31 | Progress Note-Post Operative ---
Post-Operative Progess Note Surgeon (s)/Section Beamer (s) Surgeon SELENE GUERIN MD Section Beamer: none Pre-Operative Diagnosis hx large adenomatous rectal polyp Post-Operative Diagnosis no recurrent rectal polyp, polyp prox rectum(2mm), hepatic flex polyp(3mm), asc colon submucosal lipoma. Procedure & Operative Findings Date of Procedure 03/12/22 Procedure Performed/Findings colonoscopy with bx. Anesthesia Type mac Estimated Blood Loss Estimated blood loss (mL): minimal Specimens/Packing Specimens Removed polyp, rectum, hepatic flex SELENE GUERIN MD Mar 12, 2022 15:31
[2022-03-12 15:39] VITALS: BP 146/71
--- NOTE | 2022-03-12 22:06 | OPERATIVE REPORT ---
DATE OF SERVICE: 03/12/2022 ATTENDING PRIMARY CARE PHYSICIAN: Dr. Josh Reyes. PREOPERATIVE DIAGNOSIS: History of large tubulovillous adenoma of the rectum, 3 cm in size. POSTOPERATIVE DIAGNOSES: Chronic stage II external and internal hemorrhoids, no recurrent polyp of the rectum indicated by previous submucosal injection of black ink. Small polyp of the hepatic flexure, 3 mm in size. Submucosal lipoma, ascending colon. Also, polyp of the proximal rectum, 2 mm in size. PROCEDURE: Colonoscopy with polypectomy with snare and electrocautery. SURGEON: Dr. Guerin. ANESTHESIA: Monitored anesthesia care. ESTIMATED BLOOD LOSS: Minimal. FINDINGS: Chronic stage II external and internal hemorrhoids, no recurrent polyp of the rectum indicated by previous submucosal injection of black ink. Small polyp of the hepatic flexure, 3 mm in size. Submucosal lipoma, ascending colon. Also, polyp of the proximal rectum, 2 mm in size. DISPOSITION: The patient tolerated the procedure well. INDICATIONS: The patient is a 81-year-old female known to us. She was admitted on 07/24/2021 with cough and shortness of breath and pneumonia and treated. She was found to have an exophytic mass of the anus a few centimeters in size and this was consistent with rectal prolapse; however, we then proceeded with colonoscopy, which showed that she did have a large polyp of the rectum 3 cm in size and this was excised and consistent with a tubulovillous adenoma. We also proceeded with submucosal injection of black ink of the area of resection. She is here for followup colonoscopy. DESCRIPTION OF PROCEDURE: The patient was brought to the endoscopy suite, laid in left lateral decubitus position. After adequate IV pain and sedative medications and monitored anesthesia care, a digital rectal examination was performed, which revealed chronic stage II external and internal hemorrhoids, not actively edematous nor inflamed and no bleeding. There was no prolapsed mucosa at this time. Normal sphincter tone was felt and there were no palpable masses. The endoscope was then intubated to the anus and rectum gently insufflated. The previous submucosal injection of black ink was identified with no recurrent polyp identified. The endoscope was then advanced to the proximal rectum where a small polyp approximately 2 mm in size was identified. This was biopsied and destroyed with forceps and electrocautery with visualization of good hemostasis. We then proceeded through the sigmoid colon, descending colon to the hepatic flexure where another polyp identified approximately 3 mm in size. This was biopsied and destroyed with forceps and electrocautery. We then proceeded through the ascending colon where a larger lesion was identified; however, this was very smooth and more consistent with a submucosal lipoma. The endoscope was then advanced to the cecum, which was normal. The endoscope was then slowly withdrawn while taking a second look and suctioning of residual air with no additional findings. The patient tolerated the procedure well. We will recommend high fiber diet with at least 25 grams of fiber daily as well as significant amounts of water to promote soft stools on a daily basis. She does appear to be a polyp former and we will recommend a followup colonoscopy in three years. Job ID: [id number] DocumentID: [id number] Dictated Date: 03/12/2022 14:40:54 Observer Helper Date: 03/12/2022 22:05:16 Dictated By: SELENE GUERIN MD MTDD
== END 2022-03-12 15:45 | disposition home or self-care (01) ==
LOC: ENDO 12:35
PROVIDERS: ATTEND Surgery
DX: D12.3 Benign neoplasm of transverse colon (principal); K63.5 Polyp of colon; K64.1 Second degree hemorrhoids; K64.8 Other hemorrhoids; Z87.891 Personal history of nicotine dependence
CPT/HCPCS: 88305

== ENCOUNTER 2022-04-13 13:12 | Inpatient (IN) | payer MEDICARE, MEDICAID ==
[~2022-04-13] VITALS: Ht 163 cm; Wt 59.9 kg
--- NOTE | 2022-04-13 13:25 | ED Fall/Injury ---
General Chief Complaint: Trauma-Non Activation Stated Complaint: FALL Nursing Triage Note: ARRIVED VIA EMS FROM HOME. FAMILY STATES THEY FOUND HER ON THE BATHROOM FLOOR THIS AM ET COVERED IN URINE. LAST TIME THEY TALKED TO HER WAS 2230 YESTERDAY. Source: patient, EMS Exam Limitations: no limitations History of Present Illness Date Seen by Provider: Apr 13, 2022 Time Seen by Provider: 13:11 Initial Comments 81-year-old female presents to the emergency department today after a fall. She was last spoken to at 1030 last night. Her son usually brings her breakfast in the morning, came by at 930 and there is no answer. He thought she might be sleeping so he left try to come back later. Came back later and still no answer. He entered and found her on the floor in the bathroom. Patient states she does not recall how she fell down. EMS reports based on the scene that they think she was reaching up to a drawer under a cabinet that was hanging on a wall in the drawer came out causing her to fall backwards. The patient does not recall any of these events. She does not nausea chest pain or shortness of breath, dizziness or lightheadedness prior to the event or if she passed out. She complains of pain to her left chest wall. No abdominal pain, pain in her upper or lower extremities. Allergies and Home Medications Allergies Coded Allergies: bacitracin (Unverified Allergy, Unknown, HIVES, 09/22/13) lidocaine (Unverified Allergy, Unknown, HIVES, 09/22/13) neomycin (Unverified Allergy, Unknown, HIVES, 09/22/13) polymyxin B (Unverified Allergy, Unknown, HIVES, 09/22/13) pramoxine (Unverified Allergy, Unknown, HIVES, 09/22/13) Patient Home Medication List Home Medication List Reviewed: Yes Alprazolam (Alprazolam) 0.5 Mg Tablet, 0.5 MG PO TID PRN for ANXIETY Prescribed by: LIZBET DE LA O on 07/30/21 0839 Duloxetine HCl (Cymbalta) 30 Mg Capsule., 30 MG PO DAILY, (Reported) Entered as Reported by: SANDIE YUNG on 03/06/22 1109 Hydrocodone/Acetaminophen (Hydrocodone-Acetamin 7.5-325) 1 Each Tablet, 1 EA PO EVERY 3 HOURS PRN for PAIN-MODERATE (5-7) Prescribed by: LIZBET DE LA O on 07/30/21 0839 Nicotine (Nicoderm Cq) 1 Each Patch.td24, 21 MG TD DAILY@0900 Prescribed by: LIZBET DE LA O on 07/30/21 0838 Review of Systems Review of Systems Constitutional: no symptoms reported Eyes: No Symptoms Reported Ears, Nose, Mouth, Throat: no symptoms reported Respiratory: other (Chest wall pain) Cardiovascular: no symptoms reported Gastrointestinal: no symptoms reported Genitourinary: no symptoms reported Musculoskeletal: no symptoms reported Skin: no symptoms reported Psychiatric/Neurological: No Symptoms Reported Past Zbccuoc-Dfpsvg-Njpgay Hx Patient Social History Tobacco Use?: Yes Smoking Status: Former Smoker Substance use?: No Alcohol Use?: Yes Alcohol Frequency: Once in a while Immunizations Up To Date Tetanus Booster (TDap): Less than 5yrs First/Initial COVID19 Vaccinat: 12/2020 Second COVID19 Vaccination Mikey: 12/2020 Third COVID19 Vaccination Date: NO Seasonal Allergies Seasonal Allergies: No Past Medical History Surgeries: Yes (BREAST LUMPECTOMY/ YIFAN IN C SPINE) Appendectomy, Breast, Gallbladder, Hysterectomy Respiratory: Yes COPD, Emphysema Cardiac: No Neurological: No Reproductive Disorders: No 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 Kidney Stones, UTI-Chronic Gastrointestinal: No Musculoskeletal: Yes (ARTHRITIS, CERVICAL STENOSIS) Arthritis, Fibromyalgia Endocrine: No Cataract Hearing Impairment: Hard of Hearing Cancer: No Psychosocial: Yes Anxiety Integumentary: No Blood Disorders: No Adverse Reaction/Blood Tranf: No Family Medical History Reviewed Nursing Family Hx Cancer 03 FATHER 03 MOTHER 09 BROTHER 09 SISTER Cancer of colon 09 SISTER Congenital heart disease 09 BROTHER Family history: Arthritis 03 FATHER 03 MOTHER 09 BROTHER 09 SISTER Family history: Asthma 09 SISTER Family history: Diabetes mellitus 09 BROTHER Family history: Gastrointestinal disease 03 FATHER 09 BROTHER Family history: Hypertension 03 MOTHER 09 BROTHER Heart disease 03 MOTHER 09 BROTHER History of - respiratory disease 03 FATHER 03 MOTHER 09 BROTHER Myocardial infarction 03 MOTHER Prostate cancer 03 FATHER 09 BROTHER Stroke 03 MOTHER No Family History of: Abdominal aortic aneurysm Alcoholism Congestive heart failure Dementia Family history: Allergy Family history: Alzheimer's disease Family history: Breast disease Family history: Cardiovascular disease Family history: Thyroid disorder History of - anemia Kidney disease Parkinson's disease Seizure disorder Cancer Physical Exam Vital Signs Vital Signs - First Documented 04/13/22 13:13 Temp 36.3 Pulse 80 Resp 16 B/P (MAP) 153/102 (119) Capillary Refill : Less Than 3 Seconds Height, Weight, BMI Height: 5'4.00" Weight: 125lbs. oz. 56.355478ce; 22.00 BMI Method:Stated General Appearance: WD/WN, no apparent distress HEENT: PERRL/EOMI, normal ENT inspection, TMs normal, pharynx normal Neck: other (Tenderness palpation lower cervical spine, upper thoracic spine. No step-off or deformity) Cardiovascular: regular rate, rhythm, no edema, no gallop, no JVD, no murmur Respiratory: lungs clear, normal breath sounds, other (Tenderness palpation left anterior chest wall no crepitus or deformity.) Gastrointestinal: normal bowel sounds, non tender, soft, no organomegaly, no pulsatile mass Back: normal inspection, other (Tenderness palpation mid thoracic spine without step-offs or deformity.) Extremities: other (There is a moderate sized bruise to the right lateral hip. No obvious bony tenderness.) Neurologic/Psychiatric: alert, normal mood/affect, oriented x 3 Skin: normal color, other (Abrasion right anterior forehead) Progress/Results/Core Measures Results/Orders Lab Results Laboratory Tests Test 04/13/22 14:20 Range/Units White Blood Count 11.4 H 4.3-11.0 10^3/uL Red Blood Count 4.31 3.80-5.11 10^6/uL Hemoglobin 12.9 11.5-16.0 g/dL Hematocrit 36 35-52 % Mean Corpuscular Volume 84 80-99 fL Mean Corpuscular Hemoglobin 30 25-34 pg Mean Corpuscular Hemoglobin Concent 36 32-36 g/dL Red Cell Distribution Width 12.1 10.0-14.5 % Platelet Count 281 130-400 10^3/uL Mean Platelet Volume 9.6 9.0-12.2 fL Immature Granulocyte % (Auto) 0 % Neutrophils (%) (Auto) 85 H 42-75 % Lymphocytes (%) (Auto) 5 L 12-44 % Monocytes (%) (Auto) 9 0-12 % Eosinophils (%) (Auto) 0 0-10 % Basophils (%) (Auto) 0 0-10 % Neutrophils # (Auto) 9.7 H 1.8-7.8 10^3/uL Lymphocytes # (Auto) 0.6 L 1.0-4.0 10^3/uL Monocytes # (Auto) 1.0 0.0-1.0 10^3/uL Eosinophils # (Auto) 0.0 0.0-0.3 10^3/uL Basophils # (Auto) 0.0 0.0-0.1 10^3/uL Immature Granulocyte # (Auto) 0.0 0.0-0.1 10^3/uL Neutrophils % (Manual) 81 % Lymphocytes % (Manual) 6 % Monocytes % (Manual) 4 % Eosinophils % (Manual) 0 % Basophils % (Manual) 0 % Band Neutrophils 9 % Blood Morphology Comment NORMAL Sodium Level 132 L 135-145 MMOL/L Potassium Level 2.8 L 3.6-5.0 MMOL/L Chloride Level 93 L 98-107 MMOL/L Carbon Dioxide Level 23 21-32 MMOL/L Anion Gap 16 H 5-14 MMOL/L Blood Urea Nitrogen 11 7-18 MG/DL Creatinine 0.70 0.60-1.30 MG/DL Estimat Glomerular Filtration Rate 88 BUN/Creatinine Ratio 16 Glucose Level 116 H 70-105 MG/DL Calcium Level 9.2 8.5-10.1 MG/DL Total Creatine Kinase 2207 H 29-168 U/L My Orders Orders - KATRINATHEO DO Ekg Tracing (04/13/22 13:19) Cbc With Automated Diff (04/13/22 13:19) Basic Metabolic Panel (04/13/22 13:19) Ekg Tracing (04/13/22 13:19) Ct Thoracic Spine Wo (04/13/22 13:19) Chest 1 View, Ap/Pa Only (04/13/22 13:19) Pelvis With Right Hip 2-3views (04/13/22 13:19) Ct Head/Cervical Spine Wo (04/13/22 13:19) Hydrocodone/Apap 5/325 Tablet (Lortab 5 (04/13/22 14:15) Manual Differential (04/13/22 14:20) Creatine Kinase (04/13/22 16:18) Medications Given in ED Current Medications Medications Dose Ordered Sig/Marga Route Start Time Stop Time Status Last Admin Dose Admin Acetaminophen/ Hydrocodone Bitart 1 ea ONCE ONCE PO 04/13/22 14:15 04/13/22 14:16 DC 04/13/22 14:24 1 EA Vital Signs/I&O 04/13/22 13:13 Temp 36.3 Pulse 80 Resp 16 B/P (MAP) 153/102 (119) Blood Pressure Mean: 119 Departure Communication (Admissions) Spoke to Dr. Woodard who accepts admission observation Imaging CT brain, C-spine negative. X-rays of her chest and right hip are negative as well. Slight hypokalemia. When attempting to discharge for the patient was unable to transfer to the wheelchair and very uncoordinated and unsteady on her feet. She does live at home and there is certainly concern for safety due to her diffuse generalized weakness and incoordination and frequent falls recently. Spoke with hospitalist agrees admit patient for weakness and hypokalemia. Impression Primary Impression: Fall Qualified Codes: W19.XXXA - Unspecified fall, initial encounter Additional Impressions: Left-sided chest wall pain Right hip pain Neck pain Disposition: HOME, SELF-CARE Condition: Stable Admissions Decision to Admit Reason: Admit from ER (General) Departure-Patient Inst. Referrals: GUILLERMINA BOOTH MD (PCP/Family) Primary Care Physician Patient Instructions: Minor Head Injury (DC), Preventing Falls ED Add. Discharge Instructions: Use ibuprofen and Tylenol as needed for pains. Return to the emergency department for any severe concerns. Follow-up with your primary physician for any nonemergent needs All discharge instructions reviewed with patient and/or family. Voiced understanding. THEO HERNDON DO Apr 13, 2022 13:25
[2022-04-13] MEDS ORDERED: HYDROcodone/APAP 5 MG/325 MG (LORTAB) TAB PO ONE (14:15)
--- NOTE | 2022-04-13 14:28 | Diagnostic Imaging Report ---
EXAMINATION: CT thoracic spine without contrast. TECHNIQUE: Multiple contiguous axial images were obtained through the thoracic spine without the use of intravenous contrast. Sagittal and coronal reformations were then performed. All CT scans use one or more of the following dose optimizing techniques: automated exposure control, MA and/or KvP adjustment based on patient size and exam type or iterative reconstruction. HISTORY: Back injury COMPARISON: None available. FINDINGS: The alignment of the thoracic spine is normal. Vertebral body heights are normal and no fracture is seen. Facet joints are normal. Disk heights are normal. There is no spinal canal stenosis. Limited views of the soft tissues show no abnormality. The aorta is normal. IMPRESSION: 1. No thoracic spine fracture. Dictated by: Dictated on workstation # [id number]
--- NOTE | 2022-04-13 14:29 | Diagnostic Imaging Report ---
INDICATION: Found on bathroom floor, covered in urine. TECHNIQUE: AP pelvis along with 2 views right hip, CORRELATION STUDY: None FINDINGS: The moderate underlying bowel gas and stool. Pelvis demonstrates no evidence for acute fracture. The pectineal lines and obturator rings are maintained. Pubic symphysis and SI joints are unremarkable. Advanced degenerative change visualized lower lumbar spine. Images of the right hip demonstrate no evidence for acute fracture. Alignment is anatomic. The femoral head acetabular relationship is unremarkable. The bony trabecular pattern is intact. Left hip with mildly advanced degenerative changes as well. IMPRESSION: Negative for acute fractures of the pelvis with attention to the right hip. Dictated by: Dictated on workstation # [id number]
--- NOTE | 2022-04-13 14:30 | Diagnostic Imaging Report ---
INDICATION: Found on bathroom floor earlier in the morning, altered mental status, covered in urine. TECHNIQUE: Single view chest 2:10 PM. CORRELATION STUDY: 07/24/2021 FINDINGS: Heart size stable. Mediastinum and vasculature overall are increased from prior. Lung hollis hyperinflated. Prominent interstitial markings favoring edema. Areas of infiltrate or even potential aspiration not excluded. IMPRESSION: 1. Heart size stable with the presence of pulmonary vascular congestion likely component of interstitial edema. Adversely changed from prior. Question superimposed areas of infiltrate and/or edema and perhaps aspiration lung field. Follow-up imaging would be recommended. Dictated by: Dictated on workstation # [id number]
--- NOTE | 2022-04-13 14:32 | Diagnostic Imaging Report ---
PROCEDURE: CT head and CT cervical spine without contrast. TECHNIQUE: Multiple contiguous axial images were obtained through the brain and cervical spine without the use of intravenous contrast. Sagittal and coronal reformations through the cervical spine were then performed. Auto Exposure Controls were utilized during the CT exam to meet ALARA standards for radiation dose reduction. INDICATION: 81-year-old female, found down on bathroom floor, covered in urine. Altered mental status. CORRELATION STUDY: Cervical spine from 10/03/2021. FINDINGS: CT HEAD: Generalized atrophic changes with prominence of ventricles and sulci. Disproportionately large left lateral ventricle compared to the right. There are scattered areas of decreased attenuation, likely owing to chronic small vessel ischemic disease. More prominent area in the left parietal region. No definitive regional area of decreased attenuation to suggest edema. No midline shift or mass effect. No intracranial hemorrhage. No asymmetric hyperdense intracranial vascular sign. Bony calvarium is intact. Slight asymmetric scalp swelling, particularly posteriorly on the right. There is mild opacification and mucosal thickening of multiple ethmoid air cells. Minimal mucosal thickening of the sphenoid sinuses. Trace mucosal thickening of the maxillary sinuses. CT CERVICAL SPINE: Extensive surgical changes of the cervical spine again demonstrated. This includes what appears to be partial resection and corpectomy changes of C3 through superior C7 level. Anterior cervical fusion hardware is again demonstrated but spanning C3 through C7. The C3 and C7 screws have very little encroachment into the anterior vertebral bodies. Additional screw at the mid aspect, projecting anteriorly to C5 again extends anterior to the vertebral body without significant osseous purchase into the vertebral body. Incomplete opposition of the plate with the vertebral bodies. Overall appearance appears generally stable. Various degrees of partial bony fusion and incorporation across the fused segments appear stable. The overall severity of angulation and reversal of the curvature of the cervical spine, stable. Posterior elements are intact and in normal alignment. Mild facet degenerative changes as well as disc space narrowing is present. Odontoid is intact. Definitive acute fracture or abnormal change in the alignment does not appear to be suggested. No angelica bony destructive change. Spinal canal appears stable. Scattered areas of opacification in the lung apices, right greater than left, stable. Enlarged thyroid glands, left greater than right. IMPRESSION: CT HEAD: 1. Negative for acute intracranial abnormality. Question slight right posterior scalp swelling. 2. Generalized atrophic and involutional changes along with small vessel ischemic disease, likely more prominent involving the left parietal lobe. CT CERVICAL SPINE: 1. Markedly abnormal appearance of the cervical spine with prior extensive surgical change. The overall appearance and alignment however is generally stable from prior imaging. No suggestion for acute fracture or significant change in the alignment since prior. Dictated by: Dictated on workstation # [id number]
[2022-04-13 14:48] LABS: BASOPHILS % (AUTO) 0 % (0-10); EOSINOPHILS % (AUTO) 0 % (0-10); HEMATOCRIT 36 % (35-52); HEMOGLOBIN 12.9 g/dL (11.5-16.0); LYMPHOCYTES # (AUTO) 0.6 10^3/uL (1.0-4.0); LYMPHOCYTES % (AUTO) 5 % (12-44); MEAN CORPUSCULAR HEMOGLOBIN 30 pg (25-34); MEAN CORPUSCULAR HGB CONC 36 g/dL (32-36); MEAN CORPUSCULAR VOLUME 84 fL (80-99); MEAN PLATELET VOLUME 9.6 fL (9.0-12.2); MONOCYTES % (AUTO) 9 % (0-12); NEUTROPHILS # (AUTO) 9.7 10^3/uL (1.8-7.8); NEUTROPHILS % (AUTO) 85 % (42-75); PLATELET COUNT 281 10^3/uL (130-400); WHITE BLOOD COUNT 11.4 10^3/uL (4.3-11.0)
[2022-04-13 15:03] LABS: POTASSIUM 2.8 MMOL/L (3.6-5.0)
[2022-04-13 15:04] LABS: CALCIUM 9.2 MG/DL (8.5-10.1)
[2022-04-13 15:09] LABS: CREATININE SERUM 0.7 MG/DL (0.60-1.30)
[2022-04-13 15:11] LABS: BAND NEUTROPHILS 9 %; BASOPHILS % (MANUAL) 0 %; EOSINOPHILS % (MANUAL) 0 %; LYMPHOCYTES % (MANUAL) 6 %; MONOCYTES % (MANUAL) 4 %; NEUTROPHILS % (MANUAL) 81 %; RBC MORPH NORMAL
[2022-04-13 17:39] VITALS: BP 153/102
[2022-04-13] MEDS ORDERED: RT-ALBUTEROL/IPRATROPIUM 3 ML (DUONEB) VIAL INH PRN (18:00)
[2022-04-13 20:11] VITALS: BP 132/63
[2022-04-13] MEDS ORDERED: KCL 20 MEQ TAB (K-DUR) PO ONE (21:00)
[2022-04-13] MEDS ORDERED: ACETAMINOPHEN 500 MG TAB (TYLENOL) PO PRN (21:15)
[2022-04-13] MEDS: RT-ALBUTEROL/IPRATROPIUM 3 ML (DUONEB) VIAL INH SCH (22:04)
[2022-04-13] MEDS: CATHETER FLUSH 10 ML SYR IVP SCH (22:09)
[2022-04-14] VITALS (7 sets, daily range): BP systolic 118–153; BP diastolic 64–86
[2022-04-14] MEDS: CATHETER FLUSH 10 ML SYR IVP SCH ×3 (04:24→20:25)
[2022-04-14] MEDS: RT-ALBUTEROL/IPRATROPIUM 3 ML (DUONEB) VIAL INH SCH ×2 (07:54→22:34)
[2022-04-14] MEDS ORDERED: NS IV 500 ML 500 ML IV PRN (08:15)
[2022-04-14] MEDS ORDERED: oxyCODONE/APAP 5/325MG (PERCOCET 5) TABLET PO PRN (09:15)
[2022-04-14 09:28] LABS: BASOPHILS % (AUTO) 0 % (0-10); EOSINOPHILS % (AUTO) 0 % (0-10); HEMATOCRIT 39 % (35-52); HEMOGLOBIN 13.6 g/dL (11.5-16.0); LYMPHOCYTES # (AUTO) 0.9 10^3/uL (1.0-4.0); LYMPHOCYTES % (AUTO) 9 % (12-44); MEAN CORPUSCULAR HEMOGLOBIN 30 pg (25-34); MEAN CORPUSCULAR HGB CONC 35 g/dL (32-36); MEAN CORPUSCULAR VOLUME 85 fL (80-99); MEAN PLATELET VOLUME 9.2 fL (9.0-12.2); MONOCYTES # (AUTO) 0.8 10^3/uL (0.0-1.0); MONOCYTES % (AUTO) 8 % (0-12); NEUTROPHILS # (AUTO) 8.1 10^3/uL (1.8-7.8); NEUTROPHILS % (AUTO) 83 % (42-75); PLATELET COUNT 266 10^3/uL (130-400); WHITE BLOOD COUNT 9.8 10^3/uL (4.3-11.0)
[2022-04-14] MEDS ORDERED: DULO60CA59 PO (09:32)
[2022-04-14] MEDS ORDERED: ALPR0.5T7 PO (09:32)
[2022-04-14] MEDS ORDERED: ACHD5005 PO (09:32)
[2022-04-14] MEDS ORDERED: DOCU-26 PO (09:32)
[2022-04-14 09:38] LABS: POTASSIUM 3.3 MMOL/L (3.6-5.0)
[2022-04-14 09:44] LABS: CREATININE SERUM 0.71 MG/DL (0.60-1.30)
[2022-04-14] MEDS: MAGNESIUM 1 GM/100 ML IVPB 100 ML IV SCH (09:49)
[2022-04-14] MEDS: POTASSIUM CL 10MEQ/50ML IVPB 50 ML IV SCH (09:52)
[2022-04-14] MEDS: HYDROcodone/APAP 5 MG/325 MG (LORTAB) TAB PO PRN ×2 (09:58→17:35)
[2022-04-14] MEDS: KCL 20 MEQ TAB (K-DUR) PO SCH (09:58)
--- NOTE | 2022-04-14 11:57 | Physical Therapy Evaluation ---
PT Evaluation-General Medical Diagnosis Admission Date Apr 13, 2022 at 16:18 Medical Diagnosis: fall Onset Date: Apr 13, 2022 Therapy Diagnosis Therapy Diagnosis: generalized weakness/debility Height/Weight Height (Feet): 5 Height (Inches): 4.00 Weight (Pounds): 125 Precautions Precautions/Isolations: Fall Prevention, Standard Precautions Referral Physician: Claudio Reason for Referral: Evaluation/Treatment Medical History Pertinent Medical History: COPD Additional Medical History [place] Current History EMS from home secondary to family found patient on bathroom floor covered in urine. Reviewed History: Yes Social History Home: Single Level Current Living Status: Alone Prior Prior Level of Function SCALE: Activities may be completed with or without assistive devices. 2-Vzqnsklgqs-gtxjhee completes the activity by him/herself with no assistance from a helper. 5-Set-up or Clean-up Assistance-helper sets up or cleans up; patient completes activity. Henderson assists only prior to or following the activity. 4-Supervision or Touching Assistance-helper provides verbal cues and/or touching/steadying and/or contact guard assistance as patient completes activity. Assistance may be provided throughout the activity or intermittently. 3-Partial/Moderate Assistance-helper does LESS THAN HALF the effort. Henderson lifts, holds or supports trunk or limbs, but provides less than half the effort. 2-Substantial/Maximal Assistance-helper does MORE THAN HALF the effort. Henderson lifts or holds trunk or limbs and provides more than half the effort. 4-Ecwrarjzv-dfvdbm does ALL the effort. Patient does none of the effort to complete the activity. Or, the assistance of 2 or more helpers is required for the patient to complete the activity. If activity was not attempted, code reason: 7-Patient Refused. 9-Not Applicable-not attempted and the patient did not perform the activity before the current illness, exacerbation or injury. 10-Not Attempted due to Environmental Limitations-(lack of equipment, weather restraints, etc.). 88-Not Attempted due to Medical Conditions or Safety Concerns. unable to answer due to confusion, but per report, patient lives at home independently with family support PT Evaluation-Current Subjective Patient very slow with all responses and does not follow verbal cues requiring tactile cues to complete all functional tasks. Objective Patient Orientation: Confused ROM/Strength ROM Lower Extremities bilateral LE WFL Strength Lower Extremities 3/5 grossly bilateral LE (no formal testing due to patient's inability to follow simple direction) Integumentary/Posture Bladder Incontinence: Yes Posture WFL Neuromuscular (Tone, Coordination, Reflexes) ataxic, diminished coordination with all mobility Sensory Vision: Functional Hearing: Impaired Transfers Lying to Sitting/Side of Bed(Q: 2 Sit to Stand (QC): 3 Chair/Oxy-ha-Sgrgk Xfer(QC): 3 Gait Mode of Locomotion: Walk Anticipated Mode of Locomotion: Walk Distance: 5 steps and stopped Gait Assistive Device: FWW Comments/Gait Description shuffle gait sequence/5 steps then stopped and would not take another step Balance Sitting Static: Fair Sitting Dynamic: Fair Standing Static: Fair Standing Dynamic: Poor Assessment/Needs 81 y.o. female, will benefit from skilled PT to address functional strength and mobility to improve current LOF to safely return to home or care facility at maximum LOF. Rehab Potential: Guarded PT Clean Up Worker Goals Custodial Goals PT Custodial Goals Time Frame: Apr 26, 2022 Roll Left & Right (QC): 4 Sit to Lying (QC): 4 Lying-Sitting on Side/Bed(QC): 4 Sit to Stand (QC): 4 Chair/Wel-yi-Qculh Xfer(QC): 4 Toilet Transfer (QC): 4 Walk 10 feet (QC): 4 Walk 50ft with 2 Turns (QC): 4 Walk 150 ft (QC): 4 PT Plan Problem List Problem List: Activity Tolerance, Functional Strength, Safety, Balance, Gait, Transfer, Bed Mobility Treatment/Plan Treatment Plan: Continue Plan of Care Treatment Plan: Bed Mobility, Education, Functional Activity Kiet, Functional Strength, Gait, Safety, Therapeutic Exercise, Transfers Treatment Duration: Apr 26, 2022 Frequency: 6 times per week Estimated Hrs Per Day: .25 hour per day Time/GCodes Time In: 1140 Time Out: 1150 Total Billed Treatment Time: 10 Total Billed Treatment 1 visit EVModC 10 min JOHNATHON LEIGH PT Apr 14, 2022 11:57
--- NOTE | 2022-04-14 14:24 | Occupational Therapy Eval ---
OT Evaluation-General/PLF Medical Diagnosis Admission Date Apr 13, 2022 at 16:18 Medical Diagnosis: fall Onset Date: Apr 13, 2022 Therapy Diagnosis Therapy Diagnosis: Reduced ADL status Height/Weight Height (Feet): 5 Height (Inches): 4.00 Weight (Pounds): 125 Precautions Precautions/Isolations: Fall Prevention, Standard Precautions Referral Physician: Claudio Referral Reason: Evaluation/Treatment Medical History Pertinent Medical History: Arthritis, COPD Current History Pt came to ER after son found her on the bathroom floor. Pt was confused and un able to follow or initiate 1 step commands during today's eval. Pt lives alone in a 1 story home. Her son comes and checks on her daily. Unsure about pt's ability to perform ADLs/IADLs. She was unable to answer any questions today due to confusion and being a poor historian, so all information came from chart review. Reviewed History: Yes Social History Home: Single Level Current Living Status: Alone ADL-Prior Level of Function SCALE: Activities may be completed with or without assistive devices. 6-Ydxkxyjehk-jervtyt completes the activity by him/herself with no assistance from a helper. 5-Set-up or Clean-up Assistance-helper sets up or cleans up; patient completes activity. [place] assists only prior to or following the activity. 4-Supervision or Touching Assistance-helper provides verbal cues and/or touching/steadying and/or contact guard assistance as patient completes activity. Assistance may be provided throughout the activity or intermittently. 3-Partial/Moderate Assistance-helper does LESS THAN HALF the effort. Mesa lifts, holds or supports trunk or limbs, but provides less than half the effort. 2-Substantial/Maximal Assistance-helper does MORE THAN HALF the effort. [place] lifts or holds trunk or limbs and provides more than half the effort. 1-Atuqsfsol-vhkczi does ALL the effort. Patient does none of the effort to complete the activity. Or, the assistance of 2 or more helpers is required for the patient to complete the activity. If activity was not attempted, code reason: 7-Patient Refused. 9-Not Applicable-not attempted and the patient did not perform the activity before the current illness, exacerbation or injury. 10-Not Attempted due to Environmental Limitations-(lack of equipment, weather restraints, etc.). 88-Not Attempted due to Medical Conditions or Safety Concerns. Self Care: Unknown Functional Cognition: Unknown OT Current Status Subjective Pt sitting in recliner upon arrival. Pt was very confused and unable to follow 1 step commands, even after demonstration. Appearance Pt left in recliner with all needs within reach and chair alarm on. Mental Status/Objective Patient Orientation: Confused Current Upper Extremity ROM ~110-120 degrees at shoulders Upper Extremity Strength At shoulders: 3-/5 Night Supervisor strength: impaired ADL-Treatment Lower Body Dressing (QC): 1 (per clinical judgment and due to inability to follow commands) On/Off Footwear (QC): 1 (per clinical judgment and due to inability to follow commands) Toileting Hygiene (QC): 1 Pt showed adequate LB ROM by demonstrating ability to cross legs. Assist needed to initiate figure 4 method due to inability to follow commands or initiate step of doffing/donning socks. Pt will verbally agree to task asked of her, but shows zero initiation even with max cues. Max cues for safety, initiation, and completion. Sit<> stand: CGA. 1 LOB with min assist for correction while in standing. She ambulated to/from bathroom with min a and use of walker. Poor walker management, thus needing cues for safety. Pt attempted to urinate and have a BM, with no success. Pt unable to perform toileting hygiene. Dependent for clothing management over hips. Towards end of session, she was able to follow ~25% of verbal commands. Education OT Patient Education: Correct positioning, Energy conservation, Modified ADL techniques, Progress toward Goal/Update tx plan, Purpose of tx/functional activities, Reviewed precautions, Rehab process, Safety issues Teaching Recipient: Patient Teaching Methods: Demonstration, Discussion Response to Teaching: Unable to Return Demonstration, Reinforcement Needed OT Repack Room Worker Goals Repack Room Worker Goals Time Frame: Apr 28, 2022 Oral Hygiene (QC): 4 Toileting Hygiene (QC): 4 Shower/Bathe Self (QC): 4 Upper Body Dressing (QC): 4 Lower Body Dressing (QC): 4 On/Off Footwear (QC): 4 Due to fair balance and flexibility, pt could reach these goals with subsided confusion. Additional Goals: 1-Demonstrate ADL Tasks, 2-Verbalize Understanding, 3- ImproveStrength/Kiet 1=Demonstrate adherence to instructed precautions during ADL tasks. 2=Patient will verbalize/demonstrate understanding of assistive devices/modifications for ADL. 3=Patient will improve strength/tolerance for activity to enable patient to perform ADL's. OT Education/Plan Problem List/Assessment Assessment: Decreased Activ Tolerance, Decreased Safety Aware, Decreased UE Strength, Impaired Bed Mobility, Impaired Cognition, Impaired Coordination, Impaired Funct Balance, Impaired I ADL's, Impaired Self-Care Skills, Restricted Funct UE ROM Discharge Recommendations Plan/Recommendations: Continue POC Therapy Discharge Recommendati: Assisted Living, Bath Aide Comment Pt not safe to return home alone at this time. Treatment Plan/Plan of Care Treatment,Training & Education: Yes Patient would benefit from OT for education, treatment and training to promote independence in ADL's, mobility, safety and/or upper extremity function for ADL's. Plan of Care: ADL Retraining, Functional Mobility, Group Exercise/Act as Ind, UE Funct Exercise/Act, UE Neuromus Re-Ed/Coord Treatment Duration: Apr 28, 2022 Frequency: 3 times per week (3-5x/week) Estimated Hrs Per Day: .25 hour per day Agreement: Yes Rehab Potential: Guarded Time/GCodes Start Time: 13:15 Stop Time: 13:36 Total Time Billed (hr/min): 21 Billed Treatment Time 1 visit Monik Whitehead OT Apr 14, 2022 14:24
[2022-04-14] MEDS ORDERED: BISACODYL 10 MG SUPP (DULCOLAX) PR PRN (18:15)
[2022-04-14] MEDS ORDERED: ALPRAZolam 0.25 MG (XANAX) TAB PO PRN (18:15)
[2022-04-14] MEDS ORDERED: polyethylene glycoL POWDER 17 GM (MIRALAX) PACK PO PRN (18:15)
[2022-04-14] MEDS ORDERED: LACTULOSE SYRUP 10GM/15ML (ENULOSE) 30ML UDC PO PRN (18:15)
[2022-04-14] MEDS ORDERED: CALCIUM CARBONATE 500 MG (TUMS) TAB.CHEW PO PRN (18:15)
[2022-04-14] MEDS ORDERED: ONDANSETRON 4 MG (ZOFRAN) ORAL DISSOLVE TAB PO PRN (18:15)
[2022-04-14] MEDS ORDERED: ANTACID SUSP 30 ML UDC (MYLANTA) PO PRN (18:15)
[2022-04-14] MEDS ORDERED: MELATONIN 3 MG TABLET PO PRN (18:15)
[2022-04-14] MEDS ORDERED: ONDANSETRON 4 MG/2 ML (SDV) Z0FRAN IV PRN (18:15)
[2022-04-14] MEDS ORDERED: MILK OF MAGNESIA 400 MG/5 ML 30 ML UDC PO PRN (18:15)
--- NOTE | 2022-04-14 18:23 | History & Physical-Hospitalist ---
History of Present Illness HPI/Chief Complaint Leti Moran is a 81 year old female who presented after a fall. She was found down in her bathroom at her home where she lives alone. She does not know what happened. She has had several mechanical falls recently. She reports back pain. She denies fevers and chills. She denies chest pain and palpitations. She denies shortness of breath. She has a chronic cough and sputum production. She denies abdominal pain, nausea, and vomiting. She denies constipation and diarrhea. She has been having fecal incontinence. She denies urinary symptoms. She is a former smoker. She does not drink alcohol. Her family says that she shuffles her feet when she walks. She also has a resting tremor. She has some memory loss and they are concerned about dementia. Source: patient, family Exam Limitations: no limitations Date Seen 04/14/22 Time Seen by a Provider: 10:55 Attending Physician Josh Reyes MD PCP Admitting Physician: Sonal Woodard MD Attending Physician: Sonal Woodard MD Referring Physician Date of Admission Apr 13, 2022 at 16:18 Home Medications & Allergies Home Medications Reviewed patient Home Medication Reconciliation performed by pharmacy medication reconciliations plastic eye technician and/or nursing. Patients Allergies have been reviewed. Allergies Allergies Coded Allergies bacitracin (Unverified Allergy, Unknown, HIVES, 09/22/13) lidocaine (Unverified Allergy, Unknown, HIVES, 09/22/13) neomycin (Unverified Allergy, Unknown, HIVES, 09/22/13) polymyxin B (Unverified Allergy, Unknown, HIVES, 09/22/13) pramoxine (Unverified Allergy, Unknown, HIVES, 09/22/13) Past Khjmftw-Heubzy-Skyzpx Hx Patient Social History Tobacco Use?: Yes Smoking Status: Former Smoker Use of E-Cig and/or Vaping dev: No Substance use?: No Alcohol Use?: No Alcohol Frequency: Once in a while Pt feels they are or have been: No Immunizations Up To Date Date of Influenza Vaccine: Apr 05, 2021 First/Initial COVID19 Vaccinat: 12/2020 Second COVID19 Vaccination Mikey: 12/2020 Seasonal Allergies Seasonal Allergies: No Current Status Advance Directives: No Communicates: Verbally Primary Language: Greek Preferred Spoken Language: Greek Is interpretation needed?: No Sensory deficits: Vision impairment, Hearing impairment Implanted or Applied Medical D: Orthopedic hardware Past Medical History Surgeries: Appendectomy, Breast, Gallbladder, Hysterectomy 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, 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: Hysterectomy Kidney Stones, UTI-Chronic Arthritis, Fibromyalgia Cataract Hearing Impairment: Hard of Hearing Anxiety Blood Disorders: No Adverse Reaction/Blood Tranf: No Family Medical History Reviewed Nursing Family Hx Cancer 03 FATHER 03 MOTHER 09 BROTHER 09 SISTER Cancer of colon 09 SISTER Congenital heart disease 09 BROTHER Family history: Arthritis 03 FATHER 03 MOTHER 09 BROTHER 09 SISTER Family history: Asthma 09 SISTER Family history: Diabetes mellitus 09 BROTHER Family history: Gastrointestinal disease 03 FATHER 09 BROTHER Family history: Hypertension 03 MOTHER 09 BROTHER Heart disease 03 MOTHER 09 BROTHER History of - respiratory disease 03 FATHER 03 MOTHER 09 BROTHER Myocardial infarction 03 MOTHER Prostate cancer 03 FATHER 09 BROTHER Stroke 03 MOTHER No Family History of: Abdominal aortic aneurysm Alcoholism Congestive heart failure Dementia Family history: Allergy Family history: Alzheimer's disease Family history: Breast disease Family history: Cardiovascular disease Family history: Thyroid disorder History of - anemia Kidney disease Parkinson's disease Seizure disorder Cancer Review of Systems Constitutional: weakness EENTM: no symptoms reported Respiratory: cough Cardiovascular: no symptoms reported Gastrointestinal: no symptoms reported Genitourinary: no symptoms reported Physical Exam Physical Exam Vital Signs Vital Signs - First Documented 04/13/22 04/13/22 13:13 16:40 Temp 36.3 Pulse 80 Resp 16 B/P (MAP) 153/102 (119) Pulse Ox 96 O2 Delivery Room Air Capillary Refill : Less Than 3 Seconds Height, Weight, BMI Height: 5'4.00" Weight: 125lbs. oz. [id number]; 22.54 BMI Method:Stated General Appearance: No Apparent Distress, Chronically ill HEENT: PERRL/EOMI, Pharynx Normal Neck: Normal Inspection, Supple Respiratory: Lungs Clear, No Respiratory Distress Cardiovascular: Regular Rate, Rhythm, No Murmur Gastrointestinal: Normal Bowel Sounds, Soft Extremity: Normal Inspection, No Pedal Edema Neurologic/Psychiatric: Alert, Disoriented, Other (flat affect, cogwheel rigidity upper extremities, resting tremor) Skin: Normal Color, Warm/Dry Results Results/Procedures Labs Laboratory Tests 04/13/22 14:20 04/14/22 09:18 Patient resulted labs reviewed. Imaging: Reviewed Imaging Report Assessment/Plan Admission Diagnosis Ground level fall Admission Status: Observation Assessment and Plan Ground level fall Recent falls Rhabdomyolysis Likely Parkinson's disease Debility Imaging without acute abnormalities, no fracture PT/OT IRU evaluation Begin Sinemet SW consulted Add on UA Hyponatremia Hypokalemia Monitor and correct as needed Depression Anxiety Continue home meds DVT prophylaxis: Lovenox Diagnosis/Problems Diagnosis/Problems (1) Fall Status: Acute Qualifiers: Encounter type: initial encounter Qualified Codes: W19.XXXA - Unspecified fall, initial encounter (2) History of recent fall Status: Acute (3) Parkinson's disease Status: Acute (4) Debility Status: Acute (5) Hyponatremia Status: Acute (6) Hypokalemia Status: Acute (7) Anxiety and depression Status: Chronic NICHOLE ALMAZAN MD Apr 14, 2022 18:23
[2022-04-14] MEDS: ENOXAPARIN 40 MG/0.4 ML (LOVENOX) SYR SC SCH (18:33)
[2022-04-14] MEDS: SENNOSIDES 8.6 MG (SENOKOT) TAB PO SCH (20:24)
[2022-04-14] MEDS: DOCUSATE SODIUM 100 MG (COLACE) CAP PO SCH (20:24)
[2022-04-15 03:54] VITALS: BP 145/86
[2022-04-15 05:56] LABS: CALCIUM 8.9 MG/DL (8.5-10.1); CREATININE SERUM 0.7 MG/DL (0.60-1.30); POTASSIUM 3.8 MMOL/L (3.6-5.0)
[2022-04-15] MEDS: CATHETER FLUSH 10 ML SYR IVP SCH ×3 (06:15→21:45)
[2022-04-15] MEDS: POTASSIUM CL 10MEQ/50ML IVPB 50 ML IV SCH (06:15)
[2022-04-15] MEDS: MAGNESIUM 1 GM/100 ML IVPB 100 ML IV SCH (06:15)
[2022-04-15] MEDS: KCL 20 MEQ TAB (K-DUR) PO SCH (06:15)
[2022-04-15 07:08] LABS: BILIRUBIN,URINE NEGATIVE (NEGATIVE); CLARITY,URINE CLEAR; COLOR,URINE YELLOW; GLUCOSE, URINE (UA) NEGATIVE (NEGATIVE); KETONES,URINE NEGATIVE (NEGATIVE); LEUKOCYTE ESTERASE ,URINE NEGATIVE (NEGATIVE); NITRITE,URINE NEGATIVE (NEGATIVE); PROTEIN,URINE 1+ (NEGATIVE)
[2022-04-15 07:34] LABS: BACTERIA,URINE NEGATIVE /HPF; RBC,URINE 0-2 /HPF
[2022-04-15 08:00] VITALS: BP 155/79
[2022-04-15] MEDS: RT-ALBUTEROL/IPRATROPIUM 3 ML (DUONEB) VIAL INH SCH (08:00)
[2022-04-15] MEDS: SENNOSIDES 8.6 MG (SENOKOT) TAB PO SCH ×2 (08:59→21:44)
[2022-04-15] MEDS: DULoxetine 30 MG (CYMBALTA) CAP PO SCH (08:59)
[2022-04-15] MEDS: DOCUSATE SODIUM 100 MG (COLACE) CAP PO SCH ×2 (08:59→21:44)
[2022-04-15] MEDS: HYDROcodone/APAP 5 MG/325 MG (LORTAB) TAB PO PRN (09:00)
[2022-04-15] MEDS ORDERED: NON-FORMULARY MEDICATION 1 EA EA (Duloxetine HCl 60 MG) PO SCH (09:00)
[2022-04-15] MEDS: SINEMET 10/100 (CARBIDOPA/LEVADOPA) TAB PO SCH ×3 (09:25→18:03)
--- NOTE | 2022-04-15 09:53 | Physical Therapy Daily Note ---
PT Daily Note-Current Subjective Patient is more alert today, however, continues to have difficulty with following direction and completing tasks. Pain Section J - Health Conditions 1. Rarely or not at all 2. Occasionally 3. Frequently 4. Almost constantly 8. Unable to answer Pain Effect on Sleep: 8 Pain Interference with Therapy: 8 Pain Interference w/Day-to-Day: 8 Mental Status Patient Orientation: Person Transfers SCALE: Activities may be completed with or without assistive devices. 2-Dqdscgigcw-yyhqvhs completes the activity by him/herself with no assistance from a helper. 5-Set-up or Clean-up Assistance-helper sets up or cleans up; patient completes activity. Kermit assists only prior to or following the activity. 4-Supervision or Touching Assistance-helper provides verbal cues and/or touching/steadying and/or contact guard assistance as patient completes activity. Assistance may be provided throughout the activity or intermittently. 3-Partial/Moderate Assistance-helper does LESS THAN HALF the effort. Kermit lifts, holds or supports trunk or limbs, but provides less than half the effort. 2-Substantial/Maximal Assistance-helper does MORE THAN HALF the effort. Kermit lifts or holds trunk or limbs and provides more than half the effort. 8-Yozzrtgod-oismrl does ALL the effort. Patient does none of the effort to complete the activity. Or, the assistance of 2 or more helpers is required for the patient to complete the activity. If activity was not attempted, code reason: 7-Patient Refused. 9-Not Applicable-not attempted and the patient did not perform the activity before the current illness, exacerbation or injury. 10-Not Attempted due to Environmental Limitations-(lack of equipment, weather restraints, etc.). 88-Not Attempted due to Medical Conditions or Safety Concerns. Lying to Sitting/Side of Bed(Q: 2 Sit to Stand (QC): 2 Chair/Glx-ri-Gclrv Xfer(QC): 3 Gait Training Distance: 10' Walk 10 feet (QC): 3 Gait Assistive Device: FWW shuffle gait sequence Assessment Patient resists all mobility and argues with this PT about getting OOB and up to recliner. PT attempted to educate patient on importance of OOB activity to increase strength and to safely eat breakfast. Patient continues to resists all activity. PT Intermediate Goals Geotechnical Engineering Technician Goals PT Geotechnical Engineering Technician Goals Time Frame: Apr 26, 2022 Roll Left & Right (QC): 4 Sit to Lying (QC): 4 Lying-Sitting on Side/Bed(QC): 4 Sit to Stand (QC): 4 Chair/Tzn-ax-Utmud Xfer(QC): 4 Toilet Transfer (QC): 4 Walk 10 feet (QC): 4 Walk 50ft with 2 Turns (QC): 4 Walk 150 ft (QC): 4 PT Plan Treatment/Plan Treatment Plan: Continue Plan of Care Treatment Plan: Bed Mobility, Education, Functional Activity Kiet, Functional Strength, Gait, Safety, Therapeutic Exercise, Transfers Treatment Duration: Apr 26, 2022 Frequency: 6 times per week Estimated Hrs Per Day: .25 hour per day Time/GCodes Time In: 912 Time Out: 923 Total Billed Treatment Time: 11 Total Billed Treatment 1 visit FA 11 min JOHNATHON LEIGH PT Apr 15, 2022 09:53
--- NOTE | 2022-04-15 10:49 | Occupational Ther Daily Note ---
OT Current Status-Daily Note Subjective Pt alert, sitting in recliner. Pt requires max encouragement to participate in skilled therapy. Pt initially agrees to therapy though when to initiate, pt states "I am stubborn and I don't like being pushed to do things." PALACIOS attempted to encourage pt and pt continued to decline doing any activities with PALACIOS. Pt is pleasant throughout. Mental Status/Objective Patient Orientation: Person, Confused Attachments: IV ADL-Treatment Therapy Code Descriptions/Definitions Functional [place] Measure: 0=Not Assessed/NA 4=Minimal Assistance 1=Total Assistance 5=Supervision or Setup 2=Maximal Assistance 6=Modified [place] 3=Moderate Assistance 7=Complete IndependenceSCALE: Activities may be completed with or without assistive devices. 2-Kjoqckbewm-smueqof completes the activity by him/herself with no assistance from a helper. 5-Set-up or Clean-up Assistance-helper sets up or cleans up; patient completes activity. Vancleve assists only prior to or following the activity. 4-Supervision or Touching Assistance-helper provides verbal cues and/or touching/steadying and/or contact guard assistance as patient completes activity. Assistance may be provided throughout the activity or intermittently. 3-Partial/Moderate Assistance-helper does LESS THAN HALF the effort. Vancleve lifts, holds or supports trunk or limbs, but provides less than half the effort. 2-Substantial/Maximal Assistance-helper does MORE THAN HALF the effort. Vancleve lifts or holds trunk or limbs and provides more than half the effort. 4-Bjccgvptz-lkhhrc does ALL the effort. Patient does none of the effort to complete the activity. Or, the assistance of 2 or more helpers is required for the patient to complete the activity. If activity was not attempted, code reason: 7-Patient Refused. 9-Not Applicable-not attempted and the patient did not perform the activity before the current illness, exacerbation or injury. 10-Not Attempted due to Environmental Limitations-(lack of equipment, weather restraints, etc.). 88-Not Attempted due to Medical Conditions or Safety Concerns. Other Treatment Min A to stand then pt sat back down stating that it hurt to move. PALACIOS at tempted to educate and encourage pt to move so that the stiffness/pain would decrease with movement. PALACIOS brought oral sponge to pt and pt held onto sponge but declined to use it. Warm wash cloth brought to pt and pt held onto cloth and stated that she would do it later. [facility] representatives came into room at end of OT session. Call light/phone in reach. Safety measures in place. OT Senior Care Goals Bill Distributor Goals Time Frame: Apr 28, 2022 Oral Hygiene (QC): 4 Toileting Hygiene (QC): 4 Shower/Bathe Self (QC): 4 Upper Body Dressing (QC): 4 Lower Body Dressing (QC): 4 On/Off Footwear (QC): 4 Due to fair balance and flexibility, pt could reach these goals with subsided confusion. Additional Goals: 1-Demonstrate ADL Tasks, 2-Verbalize Understanding, 3- ImproveStrength/Kiet 1=Demonstrate adherence to instructed precautions during ADL tasks. 2=Patient will verbalize/demonstrate understanding of assistive devices/modifications for ADL. 3=Patient will improve strength/tolerance for activity to enable patient to perform ADL's. OT Education/Plan Problem List/Assessment Assessment: Decreased Activ Tolerance, Impaired Cognition Discharge Recommendations Plan/Recommendations: Continue POC Treatment Plan/Plan of Care Patient would benefit from OT for education, treatment and training to promote independence in ADL's, mobility, safety and/or upper extremity function for ADL's. Plan of Care: ADL Retraining, Functional Mobility, Group Exercise/Act as Ind, UE Funct Exercise/Act, UE Neuromus Re-Ed/Coord Treatment Duration: Apr 28, 2022 Frequency: 3 times per week (3-5x/week) Estimated Hrs Per Day: .25 hour per day Agreement: Yes Rehab Potential: Guarded Time/GCodes Start Time: 10:25 Stop Time: 10:37 Total Time Billed (hr/min): 12 Billed Treatment Time 1 visit-FA 1 (12 min) RAMYA STEPHEN Apr 15, 2022 10:49
[2022-04-15 11:58] VITALS: BP 102/68
[2022-04-15] MEDS ORDERED: RT-ALBUTEROL HFA 8.5 GM INHALER IH PRN (13:00)
[2022-04-15 16:00] VITALS: BP 120/71
[2022-04-15] MEDS: ENOXAPARIN 40 MG/0.4 ML (LOVENOX) SYR SC SCH (18:03)
[2022-04-15] MEDS: RT-ALBUTEROL HFA 8.5 GM INHALER IH SCH ×2 (18:42→18:48)
--- NOTE | 2022-04-15 19:12 | Progress Note - Hospitalist ---
Subjective HPI/CC On Admission Date Seen by Provider: Apr 15, 2022 Time Seen by Provider: 10:45 Leti Moran is a 81 year old female who presented after a fall. She was found down in her bathroom at her home where she lives alone. She does not know what happened. She has had several mechanical falls recently. She reports back pain. She denies fevers and chills. She denies chest pain and palpitations. She denies shortness of breath. She has a chronic cough and sputum production. She denies abdominal pain, nausea, and vomiting. She denies constipation and diarrhea. She has been having fecal incontinence. She denies urinary symptoms. She is a former smoker. She does not drink alcohol. Her family says that she shuffles her feet when she walks. She also has a resting tremor. She has some memory loss and they are concerned about dementia. Subjective/Events-last exam She is sitting in her chair. She is feeling better. She is not having any pain at this time. Objective Exam Vital Signs Vital Signs Date Time Temp Pulse Resp B/P (MAP) Pulse Ox O2 Delivery O2 Flow Rate FiO2 04/15/22 18:48 93 Room Air 04/15/22 16:00 36.0 94 18 120/71 (87) 04/15/22 08:00 0.00 Capillary Refill : Less Than 3 Seconds General Appearance: No Apparent Distress, WD/WN Respiratory: Lungs Clear, No Respiratory Distress Cardiovascular: Regular Rate, Rhythm, No Murmur Gastrointestinal: Normal Bowel Sounds, Soft Extremity: Normal Inspection, No Pedal Edema Neurologic/Psychiatric: Alert, Normal Mood/Affect Skin: Normal Color, Warm/Dry Results/Procedures Lab Laboratory Tests 04/15/22 05:27 Patient resulted labs reviewed. Imaging: Reviewed Imaging Report Assessment/Plan Assessment and Plan Assess & Plan/Chief Complaint COVID-19 No oxygen requirement Monitor Consider Paxlovid Ground level fall Recent falls Rhabdomyolysis Parkinson's disease Debility Imaging without acute abnormalities, no fracture PT/OT Continue Sinemet SW following Hyponatremia Monitor and correct as needed Depression Anxiety Continue home meds DVT prophylaxis: Lovenox Hypokalemia, resolved Diagnosis/Problems Diagnosis/Problems (1) COVID-19 Status: Acute (2) Fall Status: Acute Qualifiers: Encounter type: initial encounter Qualified Codes: W19.XXXA - Unspecified fall, initial encounter (3) History of recent fall Status: Acute (4) Parkinson's disease Status: Acute (5) Debility Status: Acute (6) Hyponatremia Status: Acute (7) Hypokalemia Status: Acute (8) Anxiety and depression Status: Chronic NICHOLE ALMAZAN MD Apr 15, 2022 19:12
[2022-04-15 20:31] VITALS: BP 129/76
[2022-04-16] VITALS (7 sets, daily range): BP systolic 129–151; BP diastolic 69–78
[2022-04-16 06:23] LABS: CALCIUM 8.8 MG/DL (8.5-10.1); CREATININE SERUM 0.68 MG/DL (0.60-1.30); POTASSIUM 3.6 MMOL/L (3.6-5.0)
[2022-04-16] MEDS: POTASSIUM CL 10MEQ/50ML IVPB 50 ML IV SCH (06:45)
[2022-04-16] MEDS: MAGNESIUM 1 GM/100 ML IVPB 100 ML IV SCH (06:46)
[2022-04-16] MEDS: KCL 20 MEQ TAB (K-DUR) PO SCH (06:46)
[2022-04-16] MEDS: CATHETER FLUSH 10 ML SYR IVP SCH ×3 (06:46→23:25)
--- NOTE | 2022-04-16 09:02 | Occupational Ther Daily Note ---
OT Current Status-Daily Note Subjective Pt alert, lying in bed. Pt confused. No initiate for daily tasks. Mental Status/Objective Patient Orientation: Person, Confused Attachments: IV ADL-Treatment Therapy Code Descriptions/Definitions Functional [place] Measure: 0=Not Assessed/NA 4=Minimal Assistance 1=Total Assistance 5=Supervision or Setup 2=Maximal Assistance 6=Modified [place] 3=Moderate Assistance 7=Complete IndependenceSCALE: Activities may be completed with or without assistive devices. 7-Zrxspdyetj-dmjjkws completes the activity by him/herself with no assistance from a helper. 5-Set-up or Clean-up Assistance-helper sets up or cleans up; patient completes activity. [place] assists only prior to or following the activity. 4-Supervision or Touching Assistance-helper provides verbal cues and/or touching/steadying and/or contact guard assistance as patient completes activity. Assistance may be provided throughout the activity or intermittently. 3-Partial/Moderate Assistance-helper does LESS THAN HALF the effort. [place] lifts, holds or supports trunk or limbs, but provides less than half the effort. 2-Substantial/Maximal Assistance-helper does MORE THAN HALF the effort. [place] lifts or holds trunk or limbs and provides more than half the effort. 1-Bimmxoeaq-jxokmw does ALL the effort. Patient does none of the effort to complete the activity. Or, the assistance of 2 or more helpers is required for the patient to complete the activity. If activity was not attempted, code reason: 7-Patient Refused. 9-Not Applicable-not attempted and the patient did not perform the activity before the current illness, exacerbation or injury. 10-Not Attempted due to Environmental Limitations-(lack of equipment, weather restraints, etc.). 88-Not Attempted due to Medical Conditions or Safety Concerns. Other Treatment Pt would answer 'okay' but would not initiate task. Physical assistance to initiate tasks is needed. Max A for supine to EOB due to no initiation with movement. Min A and verbal cues to ambulate using FWW from EOB to recliner. Set up and drink placed in hand for pt to start drinking from cup. Set up for meal though pt would not take spoon even after food placed. After session, pt sitting in recliner with call light in place. Safety measures in place. Nrsg alerted to pt's position. OT Hvac Manager Goals Hvac Manager Goals Time Frame: Apr 28, 2022 Oral Hygiene (QC): 4 Toileting Hygiene (QC): 4 Shower/Bathe Self (QC): 4 Upper Body Dressing (QC): 4 Lower Body Dressing (QC): 4 On/Off Footwear (QC): 4 Due to fair balance and flexibility, pt could reach these goals with subsided confusion. Additional Goals: 1-Demonstrate ADL Tasks, 2-Verbalize Understanding, 3- ImproveStrength/Kiet 1=Demonstrate adherence to instructed precautions during ADL tasks. 2=Patient will verbalize/demonstrate understanding of assistive devices/modifications for ADL. 3=Patient will improve strength/tolerance for activity to enable patient to perform ADL's. OT Education/Plan Problem List/Assessment Assessment: Decreased Activ Tolerance, Decreased Safety Aware, Impaired Cognition, Impaired Self-Care Skills Discharge Recommendations Plan/Recommendations: Continue POC Treatment Plan/Plan of Care Patient would benefit from OT for education, treatment and training to promote independence in ADL's, mobility, safety and/or upper extremity function for ADL's. Plan of Care: ADL Retraining, Functional Mobility, Group Exercise/Act as Ind, UE Funct Exercise/Act, UE Neuromus Re-Ed/Coord Treatment Duration: Apr 28, 2022 Frequency: 3 times per week (3-5x/week) Estimated Hrs Per Day: .25 hour per day Agreement: Yes Rehab Potential: Guarded Time/GCodes Start Time: 07:50 Stop Time: 08:10 Total Time Billed (hr/min): 20 Billed Treatment Time 1 visit-FA 1 (20 min) RAMYA STEPHEN Apr 16, 2022 09:02
[2022-04-16] MEDS: KCL 20 MEQ TAB (K-DUR) PO NR ×2 (09:11→10:35)
[2022-04-16] MEDS: DOCUSATE SODIUM 100 MG (COLACE) CAP PO SCH ×2 (09:12→23:25)
[2022-04-16] MEDS: DULoxetine 30 MG (CYMBALTA) CAP PO SCH ×2 (09:12→10:35)
[2022-04-16] MEDS: SINEMET 10/100 (CARBIDOPA/LEVADOPA) TAB PO SCH ×4 (09:12→17:37)
[2022-04-16] MEDS: SENNOSIDES 8.6 MG (SENOKOT) TAB PO SCH ×3 (09:12→23:25)
[2022-04-16] MEDS ORDERED: NIRMATRELVIR/RITONAVIR (PAXLOVID) TABLET PO SCH (10:45)
[2022-04-16] MEDS: RT-ALBUTEROL HFA 8.5 GM INHALER IH SCH ×2 (11:25→22:56)
[2022-04-16] MEDS: NIRMATRELVIR/RITONAVIR (PAXLOVID) TABLET PO SCH ×3 (12:10→23:28)
--- NOTE | 2022-04-16 12:38 | Physical Therapy Daily Note ---
PT Daily Note-Current Subjective Patient in recliner pre tx, agrees to PT, after a lot of encouragement, has no complaints of pain. Pain Section J - Health Conditions 1. Rarely or not at all 2. Occasionally 3. Frequently 4. Almost constantly 8. Unable to answer Pain Effect on Sleep: 8 Pain Interference with Therapy: 8 Pain Interference w/Day-to-Day: 8 Appearance Patient in recliner post tx with nurse call, phone, tray, all needs met, chair alarm on. Mental Status Patient Orientation: Person, Confused Attachments: Diaz Catheter Transfers SCALE: Activities may be completed with or without assistive devices. 9-Akgflxaqes-osmqvte completes the activity by him/herself with no assistance from a helper. 5-Set-up or Clean-up Assistance-helper sets up or cleans up; patient completes activity. [place] assists only prior to or following the activity. 4-Supervision or Touching Assistance-helper provides verbal cues and/or touching/steadying and/or contact guard assistance as patient completes activity. Assistance may be provided throughout the activity or intermittently. 3-Partial/Moderate Assistance-helper does LESS THAN HALF the effort. [place] lifts, holds or supports trunk or limbs, but provides less than half the effort. 2-Substantial/Maximal Assistance-helper does MORE THAN HALF the effort. [place] lifts or holds trunk or limbs and provides more than half the effort. 8-Kzjfixufc-dsxlxe does ALL the effort. Patient does none of the effort to complete the activity. Or, the assistance of 2 or more helpers is required for the patient to complete the activity. If activity was not attempted, code reason: 7-Patient Refused. 9-Not Applicable-not attempted and the patient did not perform the activity before the current illness, exacerbation or injury. 10-Not Attempted due to Environmental Limitations-(lack of equipment, weather restraints, etc.). 88-Not Attempted due to Medical Conditions or Safety Concerns. Sit to Stand (QC): 2 Patient stands with max assist, retropulsive upon standing. After standing, patient sits back down after a few seconds and says "that's enough of that", and will not stand back up again even with max cues and encouragement. Patient also refuses to perform LE exercise Treatments standing Assessment Current Status: Poor Progress patient refused most of therapy PT Half-Way Goals Paint Formulator Goals PT Half-Way Goals Time Frame: Apr 26, 2022 Roll Left & Right (QC): 4 Sit to Lying (QC): 4 Lying-Sitting on Side/Bed(QC): 4 Sit to Stand (QC): 4 Chair/Kuh-kn-Aldof Xfer(QC): 4 Toilet Transfer (QC): 4 Walk 10 feet (QC): 4 Walk 50ft with 2 Turns (QC): 4 Walk 150 ft (QC): 4 PT Plan Problem List Problem List: Activity Tolerance, Functional Strength, Safety, Balance, Gait, Transfer, Bed Mobility, ROM Treatment/Plan Treatment Plan: Continue Plan of Care Treatment Plan: Bed Mobility, Education, Functional Activity Kiet, Functional Strength, Gait, Safety, Therapeutic Exercise, Transfers Treatment Duration: Apr 26, 2022 Frequency: 6 times per week Estimated Hrs Per Day: .25 hour per day Safety Risks/Education Patient Education: Correct Positioning, Safety Issues Teaching Recipient: Patient Teaching Methods: Demonstration, Discussion Response to Teaching: Reinforcement Needed Time/GCodes Time In: 1116 Time Out: 1128 Total Billed Treatment Time: 12 Total Billed Treatment 1 visit FA DONNELL CAPONE PT Apr 16, 2022 12:38
[2022-04-16] MEDS: ENOXAPARIN 40 MG/0.4 ML (LOVENOX) SYR SC SCH (17:41)
--- NOTE | 2022-04-16 18:34 | Progress Note - Hospitalist ---
Subjective HPI/CC On Admission Date Seen by Provider: Apr 16, 2022 Time Seen by Provider: 11:15 Leti Moran is a 81 year old female who presented after a fall. She was found down in her bathroom at her home where she lives alone. She does not know what happened. She has had several mechanical falls recently. She reports back pain. She denies fevers and chills. She denies chest pain and palpitations. She denies shortness of breath. She has a chronic cough and sputum production. She denies abdominal pain, nausea, and vomiting. She denies constipation and diarrhea. She has been having fecal incontinence. She denies urinary symptoms. She is a former smoker. She does not drink alcohol. Her family says that she shuffles her feet when she walks. She also has a resting tremor. She has some memory loss and they are concerned about dementia. Subjective/Events-last exam She is sitting in her chair. She denies pain. She is not short of breath. She denies cough. Objective Exam Vital Signs Vital Signs Date Time Temp Pulse Resp B/P (MAP) Pulse Ox O2 Delivery O2 Flow Rate FiO2 04/16/22 15:40 36.1 77 19 134/75 (94) 93 Room Air 04/15/22 08:00 0.00 Capillary Refill : Less Than 3 Seconds General Appearance: No Apparent Distress, WD/WN Respiratory: Lungs Clear, No Respiratory Distress Cardiovascular: Regular Rate, Rhythm, No Murmur Gastrointestinal: Normal Bowel Sounds, Soft Extremity: Normal Inspection, No Pedal Edema Neurologic/Psychiatric: Alert, Normal Mood/Affect, Motor Weakness Skin: Normal Color, Warm/Dry Results/Procedures Lab Laboratory Tests 04/16/22 05:35 Patient resulted labs reviewed. Imaging: Reviewed Imaging Report Assessment/Plan Assessment and Plan Assess & Plan/Chief Complaint COVID-19 No oxygen requirement Paxlovid Ground level fall Recent falls Rhabdomyolysis Parkinson's disease Debility Imaging without acute abnormalities, no fracture PT/OT Continue Sinemet SW following Hyponatremia Monitor and correct as needed Depression Anxiety Continue home meds DVT prophylaxis: Lovenox Hypokalemia, resolved Diagnosis/Problems Diagnosis/Problems (1) COVID-19 Status: Acute (2) Fall Status: Acute Qualifiers: Encounter type: initial encounter Qualified Codes: W19.XXXA - Unspecified fall, initial encounter (3) History of recent fall Status: Acute (4) Parkinson's disease Status: Acute (5) Debility Status: Acute (6) Hyponatremia Status: Acute (7) Hypokalemia Status: Acute (8) Anxiety and depression Status: Chronic NICHOLE ALMAZAN MD Apr 16, 2022 18:34
[2022-04-16] MEDS ORDERED: RELABEL FOR HOME USE MC SCH (21:00)
--- NOTE | 2022-04-16 22:27 | Physician Query Clarification ---
Physician Query-General Query to Physician: The medical record reflects the following clinical scenario: History/Risk factors: Advanced age with Hx of Parkinsons Clinical Findings: Positive Covid 19 test on 04/15/2022, Chronic productive cough, Weakness with frequent falls prior to admission, Treatment: Respiratory monitoring, Paxlovid, PT/OT Question: Can you further specify COVID 19 per the clinical indicators above? Please document response in the Progress Notes or Discharge Summary. 1. Covid 19 infection, Likely Present On Admission? 2. Other, with explanation of clinical findings 3. Clinically undetermined, no explanation for clinical findings In responding to this query, please exercise your independent professional judgment. The purpose of this communication is to more accurately reflect the complexity of your patients condition. The fact that a question is asked does not imply that any particular answer is desired or expected. Thank you for timely response to this clarification. Teresita Zepeda MSN, RN Clinical [employer] Supervisor PHYSICIAN RESPONSE: Based on the clinical findings in the record, please respond to the query above on this document as an addendum. Physician Response: Physician Response 1 If you have questions please contact: Stamping Operator: Ext: Thank you for your time and cooperation. Clinical [employer] [place] Supervisor/Stamping Operator This is a permanent part of the medical record TERESITA ZEPEDA Apr 16, 2022 22:26 NICHOLE ALMAZAN MD Apr 17, 2022 15:41
[2022-04-17] VITALS (7 sets, daily range): BP systolic 129–152; BP diastolic 69–86
[2022-04-17 06:13] LABS: POTASSIUM 3.6 MMOL/L (3.6-5.0)
[2022-04-17 06:14] LABS: CALCIUM 8.7 MG/DL (8.5-10.1)
[2022-04-17] MEDS: KCL 20 MEQ TAB (K-DUR) PO SCH (06:17)
[2022-04-17] MEDS: CATHETER FLUSH 10 ML SYR IVP SCH ×3 (06:17→22:02)
[2022-04-17] MEDS: MAGNESIUM 1 GM/100 ML IVPB 100 ML IV SCH (06:17)
[2022-04-17] MEDS: POTASSIUM CL 10MEQ/50ML IVPB 50 ML IV SCH (06:17)
[2022-04-17 06:18] LABS: CREATININE SERUM 0.69 MG/DL (0.60-1.30)
[2022-04-17 06:20] LABS: MAGNESIUM 2.1 MG/DL (1.6-2.4)
[2022-04-17] MEDS ORDERED: KCL 20 MEQ TAB (K-DUR) PO ONE (08:00)
[2022-04-17] MEDS: DULoxetine 30 MG (CYMBALTA) CAP PO SCH (08:47)
[2022-04-17] MEDS: DOCUSATE SODIUM 100 MG (COLACE) CAP PO SCH ×2 (08:47→22:01)
[2022-04-17] MEDS: SENNOSIDES 8.6 MG (SENOKOT) TAB PO SCH ×2 (08:47→22:01)
[2022-04-17] MEDS: SINEMET 10/100 (CARBIDOPA/LEVADOPA) TAB PO SCH ×3 (08:47→17:46)
[2022-04-17] MEDS: NIRMATRELVIR/RITONAVIR (PAXLOVID) TABLET PO SCH ×2 (08:48→22:01)
--- NOTE | 2022-04-17 08:50 | Occupational Ther Daily Note ---
OT Current Status-Daily Note Subjective Pt alert, lying in bed. Pt is pleasantly confused today. Pt continues to require verbal/physical cues to initiate tasks and to follow through with tasks. Pt requested to have janna Wesleyg aware and taking care of it. Mental Status/Objective Patient Orientation: Person, Confused Attachments: IV ADL-Treatment Pt agrees to task then will not know what to do or will negate agreement. Physical assistance required to help initiate movement. Mod A for supine to EOB. Pt then required mod A to stand though initially Max A to stand due to retropulsion. While ambulating with min A though assist to manipulate FWW and cues to take initial steps to bathroom. Transfer require assistance to manipulate FWW and when to sit. Assist to manipulate clothing and cleanse after toileting, max A. Pt attempts to sit before getting to sitting surface. After session, pt sitting in recliner with call light/phone in reach. Safety measures in place. All needs met. Nrsg aware of pt's position. Therapy Code Descriptions/Definitions Functional [place] Measure: 0=Not Assessed/NA 4=Minimal Assistance 1=Total Assistance 5=Supervision or Setup 2=Maximal Assistance 6=Modified [place] 3=Moderate Assistance 7=Complete IndependenceSCALE: Activities may be completed with or without assistive devices. 9-Qoseqztpdd-vgiptfp completes the activity by him/herself with no assistance from a helper. 5-Set-up or Clean-up Assistance-helper sets up or cleans up; patient completes activity. [place] assists only prior to or following the activity. 4-Supervision or Touching Assistance-helper provides verbal cues and/or touching/steadying and/or contact guard assistance as patient completes activity. Assistance may be provided throughout the activity or intermittently. 3-Partial/Moderate Assistance-helper does LESS THAN HALF the effort. [place] lifts, holds or supports trunk or limbs, but provides less than half the effort. 2-Substantial/Maximal Assistance-helper does MORE THAN HALF the effort. [place] lifts or holds trunk or limbs and provides more than half the effort. 6-Ixfeliflr-yjdysl does ALL the effort. Patient does none of the effort to complete the activity. Or, the assistance of 2 or more helpers is required for the patient to complete the activity. If activity was not attempted, code reason: 7-Patient Refused. 9-Not Applicable-not attempted and the patient did not perform the activity before the current illness, exacerbation or injury. 10-Not Attempted due to Environmental Limitations-(lack of equipment, weather restraints, etc.). 88-Not Attempted due to Medical Conditions or Safety Concerns. Toileting Hygiene (QC): 2 Toilet Transfer (QC): 3 OT Fdc Goals Fdc Goals Time Frame: Apr 28, 2022 Oral Hygiene (QC): 4 Toileting Hygiene (QC): 4 Shower/Bathe Self (QC): 4 Upper Body Dressing (QC): 4 Lower Body Dressing (QC): 4 On/Off Footwear (QC): 4 Due to fair balance and flexibility, pt could reach these goals with subsided confusion. Additional Goals: 1-Demonstrate ADL Tasks, 2-Verbalize Understanding, 3- ImproveStrength/Kiet 1=Demonstrate adherence to instructed precautions during ADL tasks. 2=Patient will verbalize/demonstrate understanding of assistive dev ices/modifications for ADL. 3=Patient will improve strength/tolerance for activity to enable patient to perform ADL's. OT Education/Plan Problem List/Assessment Assessment: Decreased Activ Tolerance, Decreased Safety Aware, Impaired Bed Mobility, Impaired Cognition, Impaired Coordination, Impaired Funct Balance, Impaired Self-Care Skills Discharge Recommendations Plan/Recommendations: Continue POC Treatment Plan/Plan of Care Patient would benefit from OT for education, treatment and training to promote independence in ADL's, mobility, safety and/or upper extremity function for ADL's. Plan of Care: ADL Retraining, Functional Mobility, Group Exercise/Act as Ind, UE Funct Exercise/Act, UE Neuromus Re-Ed/Coord Treatment Duration: Apr 28, 2022 Frequency: 3 times per week (3-5x/week) Estimated Hrs Per Day: .25 hour per day Agreement: Yes Rehab Potential: Guarded Time/GCodes Start Time: 07:40 Stop Time: 08:05 Total Time Billed (hr/min): 25 Billed Treatment Time 1 visit-ADL 2 (25 min) RAMYA STEPHEN Apr 17, 2022 08:50
--- NOTE | 2022-04-17 09:36 | Physical Therapy Daily Note ---
PT Daily Note-Current Subjective Patient in recliner pre tx, agrees to PT with a lot of encouragement, initially says "I ain't doing that". Will not answer if she has any pain. Pain Section J - Health Conditions 1. Rarely or not at all 2. Occasionally 3. Frequently 4. Almost constantly 8. Unable to answer Pain Effect on Sleep: 8 Pain Interference with Therapy: 8 Pain Interference w/Day-to-Day: 8 Appearance Patient in recliner post tx with nurse call, phone, tray, all needs met. As therapist is leaving room patient states she needs to have a BM, nurse notified and nurse aide heads in there. Mental Status Patient Orientation: Person, Confused Transfers SCALE: Activities may be completed with or without assistive devices. 9-Cobnczosgc-dfaobch completes the activity by him/herself with no assistance from a helper. 5-Set-up or Clean-up Assistance-helper sets up or cleans up; patient completes activity. [place] assists only prior to or following the activity. 4-Supervision or Touching Assistance-helper provides verbal cues and/or touching/steadying and/or contact guard assistance as patient completes activity. Assistance may be provided throughout the activity or intermittently. 3-Partial/Moderate Assistance-helper does LESS THAN HALF the effort. [place] lifts, holds or supports trunk or limbs, but provides less than half the effort. 2-Substantial/Maximal Assistance-helper does MORE THAN HALF the effort. [place] lifts or holds trunk or limbs and provides more than half the effort. 0-Yhzgtpioy-gykwdk does ALL the effort. Patient does none of the effort to complete the activity. Or, the assistance of 2 or more helpers is required for the patient to complete the activity. If activity was not attempted, code reason: 7-Patient Refused. 9-Not Applicable-not attempted and the patient did not perform the activity before the current illness, exacerbation or injury. 10-Not Attempted due to Environmental Limitations-(lack of equipment, weather restraints, etc.). 88-Not Attempted due to Medical Conditions or Safety Concerns. Patient is extremely shaky this morning, needs to have several sips of soda from her cup (has a lid with straw) and she can barely get the straw in her mouth due to shaking/tremors. Patient spends a lot of time hacking up phlegm and coughing, saying "oh God, oh God". Attempted to stand and patient leans forward and says "I can't do it" and starts coughing and hacking again, seems to have pain in her chest and moaning. Exercises Seated Therapy Exercises: Long arc quads Seated Reps: 10 Patient performed a few exercises but stopped for more coughing and hacking, states she can't go on. Treatments attempted standing, LE ROM Assessment Current Status: Poor Progress Patient could perform very little of her therapy tx due to continuous coughing and hacking up phlegm and seems to have poor motivation to get up and move around. PT Delicatessen Goods Stock Clerk Goals Delic[employer]essen Good[employer] Stock Clerk Goals PT Del[employer] Good[employer] Stock Clerk Goals Time Frame: Apr 26, 2022 Roll Left & Right (QC): 4 Sit to Lying (QC): 4 Lying-Sitting on Side/Bed(QC): 4 Sit to Stand (QC): 4 Chair/Keh-wh-Bxudq Xfer(QC): 4 Toilet Transfer (QC): 4 Walk 10 feet (QC): 4 Walk 50ft with 2 Turns (QC): 4 Walk 150 ft (QC): 4 PT Plan Problem List Problem List: Activity Tolerance, Functional Strength, Safety, Balance, Gait, Transfer, Bed Mobility, ROM Treatment/Plan Treatment Plan: Continue Plan of Care Treatment Plan: Bed Mobility, Education, Functional Activity Kiet, Functional Strength, Gait, Safety, Therapeutic Exercise, Transfers Treatment Duration: Apr 26, 2022 Frequency: 6 times per week Estimated Hrs Per Day: .25 hour per day Safety Risks/Education Patient Education: Correct Positioning, Safety Issues Teaching Recipient: Patient Teaching Methods: Demonstration, Discussion Response to Teaching: Reinforcement Needed Time/GCodes Time In: 907 Time Out: 919 Total Billed Treatment Time: 12 Total Billed Treatment 1 visit EX DONNELL CAPONE PT Apr 17, 2022 09:36
[2022-04-17] MEDS: RT-ALBUTEROL HFA 8.5 GM INHALER IH SCH ×2 (09:56→21:53)
--- NOTE | 2022-04-17 14:51 | Progress Note - Hospitalist ---
Subjective HPI/CC On Admission Date Seen by Provider: Apr 17, 2022 Time Seen by Provider: 10:30 Leti Moran is a 81 year old female who presented after a fall. She was found down in her bathroom at her home where she lives alone. She does not know what happened. She has had several mechanical falls recently. She reports back pain. She denies fevers and chills. She denies chest pain and palpitations. She denies shortness of breath. She has a chronic cough and sputum production. She denies abdominal pain, nausea, and vomiting. She denies constipation and diarrhea. She has been having fecal incontinence. She denies urinary symptoms. She is a former smoker. She does not drink alcohol. Her family says that she shuffles her feet when she walks. She also has a resting tremor. She has some memory loss and they are concerned about dementia. Subjective/Events-last exam She is sitting in her chair. She has no complaints. She denies pain. Objective Exam Vital Signs Vital Signs Date Time Temp Pulse Resp B/P (MAP) Pulse Ox O2 Delivery O2 Flow Rate FiO2 04/17/22 13:56 36.9 83 95 21 04/17/22 12:22 18 152/73 (99) Room Air 04/15/22 08:00 0.00 Capillary Refill : Less Than 3 Seconds General Appearance: No Apparent Distress, Thin Respiratory: Lungs Clear, No Respiratory Distress Cardiovascular: Regular Rate, Rhythm, No Murmur Gastrointestinal: Normal Bowel Sounds, Soft Extremity: Normal Inspection, No Pedal Edema Neurologic/Psychiatric: Alert, Disoriented, Motor Weakness Results/Procedures Lab Laboratory Tests 04/17/22 05:50 Patient resulted labs reviewed. Imaging: Reviewed Imaging Report Assessment/Plan Assessment and Plan Assess & Plan/Chief Complaint COVID-19 No oxygen requirement Paxlovid Ground level fall Recent falls Rhabdomyolysis Parkinson's disease Debility Imaging without acute abnormalities, no fracture PT/OT Continue Sinemet SW following Hyponatremia Monitor and correct as needed Depression Anxiety Continue home meds DVT prophylaxis: Lovenox Hypokalemia, resolved Diagnosis/Problems Diagnosis/Problems (1) COVID-19 Status: Acute (2) Fall Status: Acute Qualifiers: Encounter type: initial encounter Qualified Codes: W19.XXXA - Unspecified fall, initial encounter (3) History of recent fall Status: Acute (4) Parkinson's disease Status: Acute (5) Debility Status: Acute (6) Hyponatremia Status: Acute (7) Hypokalemia Status: Acute (8) Anxiety and depression Status: Chronic NICHOLE ALMAZAN MD Apr 17, 2022 14:50
[2022-04-17] MEDS: ENOXAPARIN 40 MG/0.4 ML (LOVENOX) SYR SC SCH (17:46)
[2022-04-18] MEDS ORDERED: RT-ALBUTEROL HFA 8.5 GM INHALER IH PRN (03:30)
[2022-04-18 04:00] VITALS: BP 130/91
[2022-04-18] MEDS: CATHETER FLUSH 10 ML SYR IVP SCH (06:04)
[2022-04-18 07:33] LABS: POTASSIUM 3.6 MMOL/L (3.6-5.0)
[2022-04-18 08:32] VITALS: BP 127/79
--- NOTE | 2022-04-18 08:47 | Occupational Ther Daily Note ---
OT Current Status-Daily Note Subjective Pt alert, lying in bed. Pt pleasantly confused, requires verbal/physical cues to initiate tasks. Mental Status/Objective Patient Orientation: Person, Confused Attachments: IV ADL-Treatment Mod A for supine to EOB due to decreased initiation. SBA for safety as pt sits EOB. Mod A for sit to stand due to retropulsion. Min A for ambulation to manipulate FWW and to guide pt to bathroom. Max A for stand to sit due to pt unable to sequence sitting. Max A for toilet hygiene and clothing manipulation. Pt is retropulsive during ambulation to/from bathroom using FWW and requires assistance to manipulate FWW throughout. Pt able to wash face then hands with bath wipe. After setup, pt able to use regular utensils to eat breakfast. After session, pt sitting in recliner eating breakfast. Call light and safety measures in place. All needs met. Nrsg aware of pt's position. Therapy Code Descriptions/Definitions Functional [place] Measure: 0=Not Assessed/NA 4=Minimal Assistance 1=Total Assistance 5=Supervision or Setup 2=Maximal Assistance 6=Modified [place] 3=Moderate Assistance 7=Complete IndependenceSCALE: Activities may be completed with or without assistive devices. 3-Mxrpnkvuix-ccbptqb completes the activity by him/herself with no assistance from a helper. 5-Set-up or Clean-up Assistance-helper sets up or cleans up; patient completes activity. [place] assists only prior to or following the activity. 4-Supervision or Touching Assistance-helper provides verbal cues and/or touching/steadying and/or contact guard assistance as patient completes activity. Assistance may be provided throughout the activity or intermittently. 3-Partial/Moderate Assistance-helper does LESS THAN HALF the effort. [place] lifts, holds or supports trunk or limbs, but provides less than half the effort. 2-Substantial/Maximal Assistance-helper does MORE THAN HALF the effort. [place] lifts or holds trunk or limbs and provides more than half the effort. 3-Mvqerhvwm-xvuiyn does ALL the effort. Patient does none of the effort to comp lete the activity. Or, the assistance of 2 or more helpers is required for the patient to complete the activity. If activity was not attempted, code reason: 7-Patient Refused. 9-Not Applicable-not attempted and the patient did not perform the activity before the current illness, exacerbation or injury. 10-Not Attempted due to Environmental Limitations-(lack of equipment, weather restraints, etc.). 88-Not Attempted due to Medical Conditions or Safety Concerns. Eating (QC): 5 Toileting Hygiene (QC): 2 Toilet Transfer (QC): 2 OT Major General Goals Half-Way Goals Time Frame: Apr 28, 2022 Oral Hygiene (QC): 4 Toileting Hygiene (QC): 4 Shower/Bathe Self (QC): 4 Upper Body Dressing (QC): 4 Lower Body Dressing (QC): 4 On/Off Footwear (QC): 4 Due to fair balance and flexibility, pt could reach these goals with subsided confusion. Additional Goals: 1-Demonstrate ADL Tasks, 2-Verbalize Understanding, 3- ImproveStrength/Kiet 1=Demonstrate adherence to instructed precautions during ADL tasks. 2=Patient will verbalize/demonstrate understanding of assistive devices/modifications for ADL. 3=Patient will improve strength/tolerance for activity to enable patient to perform ADL's. OT Education/Plan Problem List/Assessment Assessment: Decreased Safety Aware, Impaired Bed Mobility, Impaired Cognition, Impaired Coordination, Impaired Funct Balance, Impaired Self-Care Skills Discharge Recommendations Plan/Recommendations: Continue POC Treatment Plan/Plan of Care Patient would benefit from OT for education, treatment and training to promote independence in ADL's, mobility, safety and/or upper extremity function for ADL's. Plan of Care: ADL Retraining, Functional Mobility, Group Exercise/Act as Ind, UE Funct Exercise/Act, UE Neuromus Re-Ed/Coord Treatment Duration: Apr 28, 2022 Frequency: 3 times per week (3-5x/week) Estimated Hrs Per Day: .25 hour per day Agreement: Yes Rehab Potential: Guarded Time/GCodes Start Time: 08:20 Stop Time: 09:00 Total Time Billed (hr/min): 40 Billed Treatment Time 1 visit-ADL 3 (40 min) RAMYA STEPHEN Apr 18, 2022 08:47
[2022-04-18] MEDS: MAGNESIUM 1 GM/100 ML IVPB 100 ML IV SCH (10:58)
--- NOTE | 2022-04-18 11:44 | Physical Therapy Daily Note ---
PT Daily Note-Current Subjective Patient in recliner pre tx, states she has to use the restroom, will not say if she has any pain. Pain Section J - Health Conditions 1. Rarely or not at all 2. Occasionally 3. Frequently 4. Almost constantly 8. Unable to answer Pain Effect on Sleep: 8 Pain Interference with Therapy: 8 Pain Interference w/Day-to-Day: 8 Appearance Patient in bed post tx with nurse call, phone, tray, all needs met, bed alarm on. Mental Status Patient Orientation: Person, Confused Transfers SCALE: Activities may be completed with or without assistive devices. 6-Mcnhdwxfqd-hkowoec completes the activity by him/herself with no assistance from a helper. 5-Set-up or Clean-up Assistance-helper sets up or cleans up; patient completes activity. [place] assists only prior to or following the activity. 4-Supervision or Touching Assistance-helper provides verbal cues and/or touching/steadying and/or contact guard assistance as patient completes activity. Assistance may be provided throughout the activity or intermittently. 3-Partial/Moderate Assistance-helper does LESS THAN HALF the effort. [place] lifts, holds or supports trunk or limbs, but provides less than half the effort. 2-Substantial/Maximal Assistance-helper does MORE THAN HALF the effort. [place] lifts or holds trunk or limbs and provides more than half the effort. 9-Rksmdooxn-yacgcx does ALL the effort. Patient does none of the effort to complete the activity. Or, the assistance of 2 or more helpers is required for the patient to complete the activity. If activity was not attempted, code reason: 7-Patient Refused. 9-Not Applicable-not attempted and the patient did not perform the activity before the current illness, exacerbation or injury. 10-Not Attempted due to Environmental Limitations-(lack of equipment, weather restraints, etc.). 88-Not Attempted due to Medical Conditions or Safety Concerns. Roll Left & Right (QC): 1 Sit to Lying (QC): 1 Sit to Stand (QC): 1 Chair/Wuy-ub-Envir Xfer(QC): 1 Toilet Transfer (QC): 1 Patient states she needs to use the restroom but will not assist to stand and am bulate to the restroom. Assist of 2 needed to stand patient and ambulates to the restroom, once up she ambulates with CGA, min assist to turn and sit on toilet. When done patient again will not assist to stand and get cleaned and ambulate back to the bed. Assist of 2 needed for this and patient gets very agitated. Assist of 2 needed to lay down in bed. Gait Training Distance: 10'x2 Walk 10 feet (QC): 3 Gait Assistive Device: FWW Treatments bed mobility and transfers, ambulation, toileting Assessment Current Status: Poor Progress Patient is uncooperative and gets agitated in all aspects of her care. PT Forest Technician Goals Forest Technician Goals PT [facility] Goals Time Frame: Apr 26, 2022 Roll Left & Right (QC): 4 Sit to Lying (QC): 4 Lying-Sitting on Side/Bed(QC): 4 Sit to Stand (QC): 4 Chair/Str-wh-Vtplf Xfer(QC): 4 Toilet Transfer (QC): 4 Walk 10 feet (QC): 4 Walk 50ft with 2 Turns (QC): 4 Walk 150 ft (QC): 4 PT Plan Problem List Problem List: Activity Tolerance, Functional Strength, Safety, Balance, Gait, Transfer, Bed Mobility, ROM Treatment/Plan Treatment Plan: Continue Plan of Care Treatment Plan: Bed Mobility, Education, Functional Activity Kiet, Functional Strength, Gait, Safety, Therapeutic Exercise, Transfers Treatment Duration: Apr 26, 2022 Frequency: 6 times per week Estimated Hrs Per Day: .25 hour per day Safety Risks/Education Patient Education: Gait Training, Transfer Techniques, Correct Positioning, Safety Issues Teaching Recipient: Patient Teaching Methods: Demonstration, Discussion Response to Teaching: Reinforcement Needed Time/GCodes Time In: 1118 Time Out: 1137 Total Billed Treatment Time: 19 Total Billed Treatment 1 visit FA Dontae' DONNELL GARSIA PT Apr 18, 2022 11:44
[2022-04-18 12:05] VITALS: BP 137/82
[2022-04-18] MEDS: KCL 20 MEQ TAB (K-DUR) PO SCH (14:32)
[2022-04-18] MEDS: NIRMATRELVIR/RITONAVIR (PAXLOVID) TABLET PO SCH (14:32)
[2022-04-18] MEDS: SINEMET 10/100 (CARBIDOPA/LEVADOPA) TAB PO SCH (14:32)
[2022-04-18] MEDS: DULoxetine 30 MG (CYMBALTA) CAP PO SCH (14:32)
[2022-04-18] MEDS: DOCUSATE SODIUM 100 MG (COLACE) CAP PO SCH (14:32)
[2022-04-18 14:33] VITALS: BP 137/82
[2022-04-18] MEDS: SENNOSIDES 8.6 MG (SENOKOT) TAB PO SCH (14:33)
--- NOTE | 2022-04-18 15:37 | Discharge Summary ---
Discharge Summary Hospital Course Problems/Dx: (1) COVID-19 Status: Acute (2) Fall Status: Acute Qualifiers: Qualified Codes: W19.XXXA - Unspecified fall, initial encounter (3) History of recent fall Status: Acute (4) Parkinson's disease Status: Acute (5) Debility Status: Acute (6) Hyponatremia Status: Acute (7) Hypokalemia Status: Acute (8) Anxiety and depression Status: Chronic Hospital Course Date of Admission: Apr 13, 2022 at 19:07 Admission Diagnosis : Ground level fall Family Physician/Provider: Josh Reyes MD Date of Discharge: 04/18/22 Discharge Diagnosis: Ground level fall, Parkinson's disease, COVID Hospital Course: Leti Moran is a 81 year old female who was admitted after a fall. She had no acute fractures. She had parkinsonian symptoms and was started on Sinemet for presumed Parkinson's disease. She was found to be COVID positive. She worked with PT/OT. She was debilitated. She was transitioned to swing bed for ongoing therapy needs. Labs and Pending Lab Test: Laboratory Tests 04/18/22 07:06: Potassium Level 3.6, Magnesium Level 2.0 Home Meds Active Reported Stool Softener (Docusate Sodium) 100 Mg Capsule 100 Mg PO DAILY PRN Duloxetine HCl 60 Mg Capsule.dr 60 Mg PO DAILY Hydrocodone-Acetamin 5-325 mg (Hydrocodone/Acetaminophen) 5 Mg-325 Mg Tablet 1 Each PO QID Alprazolam 0.5 Mg Tablet 0.5 Mg PO BID Assessment/Pt Instructions Transitioned to swing bed Discharge Instructions Discharge Diet: No Restrictions Activity as Tolerated: Yes Discharge Physical Examination Vital Signs Vital Signs Date Time Temp Pulse Resp B/P (MAP) Pulse Ox O2 Delivery O2 Flow Rate FiO2 04/18/22 14:33 37.0 92 20 137/82 94 Room Air 0.00 04/17/22 13:56 21 General Appearance: No Apparent Distress, Chronically ill Respiratory: No Respiratory Distress, Decreased Breath Sounds Cardiovascular: Regular Rate, Rhythm, No Murmur Gastrointestinal: Normal Bowel Sounds, Soft Extremity: Normal Inspection, No Pedal Edema Skin: Normal Color, Warm/Dry Neurologic/Psychiatric: Alert, Disoriented Allergies: Coded Allergies: bacitracin (Unverified Allergy, Unknown, HIVES, 09/22/13) lidocaine (Unverified Allergy, Unknown, HIVES, 09/22/13) neomycin (Unverified Allergy, Unknown, HIVES, 09/22/13) polymyxin B (Unverified Allergy, Unknown, HIVES, 09/22/13) pramoxine (Unverified Allergy, Unknown, HIVES, 09/22/13) Discharge Summary Date of Admission Apr 13, 2022 at 19:07 Date of Discharge Apr 18, 2022 at 14:32 Discharge Date: Apr 18, 2022 Discharge Time: 14:32 Admission Diagnosis Ground level fall Discharge Diagnosis COVID-19 Ground level fall Recent falls Rhabdomyolysis Parkinson's disease Debility Hyponatremia Depression Anxiety Hypokalemia (1) COVID-19 Status: Acute (2) Fall Status: Acute Qualifiers: Qualified Codes: W19.XXXA - Unspecified fall, initial encounter (3) History of recent fall Status: Acute (4) Parkinson's disease Status: Acute (5) Debility Status: Acute (6) Hyponatremia Status: Acute (7) Hypokalemia Status: Acute (8) Anxiety and depression Status: Chronic NICHOLE ALMAZAN MD Apr 18, 2022 15:37
== END 2022-04-18 14:32 | disposition swing bed (61) | DRG 56 ==
LOC: EDUNIT# 13:12 → ER 13:12 → 4TH 16:18 → OBSVTOIN 19:07 → 4TH 04-15 12:43
PROVIDERS: ADMIT Family Medicine; ATTEND Internal Medicine
PROC: 8E0ZXY6 Isolation (ICD-10-PCS; principal; 2022-04-15)
DX: G20 Parkinson's disease (principal); U07.1 COVID-19; M62.82 Rhabdomyolysis; E87.1 Hypo-osmolality and hyponatremia; R53.81 Other malaise; E87.6 Hypokalemia; F32.A Depression, unspecified; F41.9 Anxiety disorder, unspecified; W18.30XA Fall on same level, unspecified, initial encounter; J43.9 Emphysema, unspecified; M19.90 Unspecified osteoarthritis, unspecified site; M79.7 Fibromyalgia; Z87.891 Personal history of nicotine dependence
CPT/HCPCS: 36415; 70450; 71045; 72125; 72128; 80048; 81000; 82550; 83735; 84132; 85007; 85025; 85027; 87636; 93005; 94640; 94760; G0378

== ENCOUNTER 2022-04-18 13:53 | Inpatient (IN) | payer MEDICARE, MEDICAID ==
[~2022-04-18] VITALS: Ht 163 cm; Wt 59.9 kg
[~2022-04-18 13:53] MED LIST changes: +ACHD5005 PO; +DOCU-26 PO; +DULO60CA59 PO
[2022-04-18] MEDS ORDERED: ANTACID SUSP 30 ML UDC (MYLANTA) PO PRN (14:45)
[2022-04-18] MEDS ORDERED: ONDANSETRON 4 MG/2 ML (SDV) Z0FRAN IV PRN (14:45)
[2022-04-18] MEDS ORDERED: LACTULOSE SYRUP 10GM/15ML (ENULOSE) 30ML UDC PO PRN (14:45)
[2022-04-18] MEDS ORDERED: ENOXAPARIN 40 MG/0.4 ML (LOVENOX) SYR SC SCH (14:45)
[2022-04-18] MEDS ORDERED: polyethylene glycoL POWDER 17 GM (MIRALAX) PACK PO PRN (14:45)
[2022-04-18] MEDS ORDERED: BISACODYL 10 MG SUPP (DULCOLAX) PR PRN (14:45)
[2022-04-18] MEDS ORDERED: ACETAMINOPHEN 500 MG TAB (TYLENOL) PO PRN (14:45)
[2022-04-18] MEDS ORDERED: MILK OF MAGNESIA 400 MG/5 ML 30 ML UDC PO PRN (14:45)
[2022-04-18] MEDS ORDERED: HYDROcodone/APAP 5 MG/325 MG (LORTAB) TAB PO PRN (14:45)
[2022-04-18] MEDS ORDERED: ONDANSETRON 4 MG (ZOFRAN) ORAL DISSOLVE TAB PO PRN (14:45)
[2022-04-18] MEDS ORDERED: CALCIUM CARBONATE 500 MG (TUMS) TAB.CHEW PO PRN (14:45)
[2022-04-18] MEDS ORDERED: RT-ALBUTEROL HFA 8.5 GM INHALER IH PRN (15:00)
--- NOTE | 2022-04-18 15:18 | Physical Therapy Evaluation ---
PT Evaluation-General Medical Diagnosis Admission Date Apr 18, 2022 at 14:38 Medical Diagnosis: COVID Onset Date: Apr 13, 2022 Therapy Diagnosis Therapy Diagnosis: impaired mobility Height/Weight Height (Feet): 5 Height (Inches): 4.00 Weight (Pounds): 125 Referral Physician: Claudio Reason for Referral: Evaluation/Treatment Medical History Pertinent Medical History: Arthritis, COPD Social History Home: Single Level Current Living Status: Alone Prior Prior Level of Function SCALE: Activities may be completed with or without assistive devices. 6-Ulrayvfzco-lzkdemf completes the activity by him/herself with no assistance from a helper. 5-Set-up or Clean-up Assistance-helper sets up or cleans up; patient completes activity. [place] assists only prior to or following the activity. 4-Supervision or Touching Assistance-helper provides verbal cues and/or touching/steadying and/or contact guard assistance as patient completes activity. Assistance may be provided throughout the activity or intermittently. 3-Partial/Moderate Assistance-helper does LESS THAN HALF the effort. [place] lifts, holds or supports trunk or limbs, but provides less than half the effort. 2-Substantial/Maximal Assistance-helper does MORE THAN HALF the effort. [place] lifts or holds trunk or limbs and provides more than half the effort. 3-Eeokyydht-zekzwy does ALL the effort. Patient does none of the effort to complete the activity. Or, the assistance of 2 or more helpers is required for the patient to complete the activity. If activity was not attempted, code reason: 7-Patient Refused. 9-Not Applicable-not attempted and the patient did not perform the activity before the current illness, exacerbation or injury. 10-Not Attempted due to Environmental Limitations-(lack of equipment, weather restraints, etc.). 88-Not Attempted due to Medical Conditions or Safety Concerns. unknown PT Evaluation-Current Subjective Patient in bed pre tx, needs max encouragement to participate, voices no compla ints of pain. Seems oriented only to name. Pain Section J - Health Conditions 1. Rarely or not at all 2. Occasionally 3. Frequently 4. Almost constantly 8. Unable to answer Pain Effect on Sleep: 8 Pain Interference with Therapy: 8 Pain Interference w/Day-to-Day: 8 Pt/Family Goals none stated Objective Patient Orientation: Person, Confused ROM/Strength ROM Lower Extremities WNL Strength Lower Extremities unable to assess, patient cannot follow directions Sensory Hearing: Impaired Sensation Lower Extremities unable to assess, patient cannot follow directions Transfers Roll Left & Right (QC): 1 Sit to Lying (QC): 1 Lying to Sitting/Side of Bed(Q: 1 Sit to Stand (QC): 3 Chair/Fap-et-Rlbug Xfer(QC): 3 Toilet Transfer (QC): 7 Car Transfer (QC): 10 Patient needs assist of 2 for supine to sit, min assist for sit to stand (patient is retropulsive in standing but gets better once she starts ambulating) Gait Walk 10 feet (QC): 88 Walk 50 ft with 2 Turns(QC): 88 Walk 150 ft (QC): 88 Walking 10ft/uneven surface-QC: 88 Distance: 5' Gait Assistive Device: FWW Comments/Gait Description Patient needed min assist while ambulating to the recliner due to poor balance and she needed assist on guiding walker and help to lower her down to the recline, patient doesn't follow cues for safety. Wheelchair Training Wheel 50 ft with 2 turns (QC): 10 Wheel 150 ft (QC): 10 Stairs 1 Step (curb) (QC): 10 4 Steps (QC): 10 12 Steps (QC): 10 Balance Sitting Static: Fair Sitting Dynamic: Poor Standing Static: Poor Standing Dynamic: Poor Picking up an Object (QC): 10 Treatment PROM and BLE and BUE, patient would not follow directions for exercise, would not follow modeling of therapist nor verbal or tactile cues. Patient would not help therapist with movements, just PROM Assessment/Needs Patient is uncooperative with therapy, she will not respond to directions for exercise, has to be positioned by therapist for all aspects of mobility, doesn't seem to understand what is going on at all. Patient will be discharged from PT at this time because she cannot actively participate in therapy. Rehab Potential: Poor PT Shelter Goals Inflated Ball Molder Goals Scoring Section J - Health Conditions 1. Rarely or not at all 2. Occasionally 3. Frequently 4. Almost constantly 8. Unable to answer PT Plan Problem List Problem List: Activity Tolerance, Functional Strength, Safety, Balance, Gait, Transfer, Bed Mobility, ROM Treatment/Plan Treatment Plan: Continue Plan of Care, Discontinue PT Treatment Plan: Other Treatment Duration: Apr 18, 2022 Frequency: Safety Risks/Education Patient Education: Transfer Techniques, Correct Positioning, Safety Issues Teaching Recipient: Patient Teaching Methods: Demonstration, Discussion Response to Teaching: Unable to Comprehend Discharge Recommendations Plan DC Therapy Discharge Recommendati: Other, See Comments (NH) Time/GCodes Time In: 1445 Time Out: 1516 Total Billed Treatment Time: 23 Total Billed Treatment 1 visit EVM 10' FA 15' PT eval from [id number], OT eval from [id number], tx from [id number] DONNELL GARSIA PT Apr 18, 2022 15:18
--- NOTE | 2022-04-18 15:25 | Occupational Therapy Eval ---
OT Evaluation-General/PLF Medical Diagnosis Admission Date Apr 18, 2022 at 14:38 Medical Diagnosis: Covid 19 Onset Date: Apr 13, 2022 Therapy Diagnosis Therapy Diagnosis: n/a Height/Weight Height (Feet): 5 Height (Inches): 4.00 Weight (Pounds): 125 Precautions Precautions/Isolations: Airborne Isolation, Contact Isolation, Fall Prevention Referral Physician: Claudio Referral Reason: Evaluation/Treatment Medical History Pertinent Medical History: Arthritis, COPD Current History Pt came to ER after son found her on the bathroom floor. Pt was confused and unable to follow or initiate 1 step commands during today's eval. Pt lives alone in a 1 story home. Her son comes and checks on her daily. Unsure about pt's ability to perform ADLs/IADLs. She was unable to answer any questions today due to confusion and being a poor historian, so all information came from chart review. Reviewed History: Yes Social History Home: Single Level Current Living Status: Alone ADL-Prior Level of Function SCALE: Activities may be completed with or without assistive devices. 2-Azyudxguye-rxvvbxk completes the activity by him/herself with no assistance from a helper. 5-Set-up or Clean-up Assistance-helper sets up or cleans up; patient completes activity. [place] assists only prior to or following the activity. 4-Supervision or Touching Assistance-helper provides verbal cues and/or touching/steadying and/or contact guard assistance as patient completes activity. Assistance may be provided throughout the activity or intermittently. 3-Partial/Moderate Assistance-helper does LESS THAN HALF the effort. [place] lifts, holds or supports trunk or limbs, but provides less than half the effort. 2-Substantial/Maximal Assistance-helper does MORE THAN HALF the effort. [place] lifts or holds trunk or limbs and provides more than half the effort. 8-Huqacsndg-jsiqlo does ALL the effort. Patient does none of the effort to complete the activity. Or, the assistance of 2 or more helpers is required for the patient to complete the activity. If activity was not attempted, code reason: 7-Patient Refused. 9-Not Applicable-not attempted and the patient did not perform the activity before the current illness, exacerbation or injury. 10-Not Attempted due to Environmental Limitations-(lack of equipment, weather restraints, etc.). 88-Not Attempted due to Medical Conditions or Safety Concerns. Self Care: Unknown Functional Cognition: Unknown OT Current Status Subjective Pt reclined in bed at OT arrival. She was very confused and unable to follow 1 step commands, even after demonstration. Appearance Pt left sitting in recliner, chair alarm set, all needs within reach at OT departure. Mental Status/Objective Patient Orientation: Confused, Unable to Assess Current Upper Extremity ROM ~160 degrees bilateral shoulders elbow-distally appear WFL, however pt unable to follow directions Upper Extremity Strength Pt unable to understand directions ADL-Treatment Eating (QC): 7 Oral Hygiene (QC): 7 Shower/Bathe Self (QC): 7 Upper Body Dressing (QC): 7 Lower Body Dressing (QC): 7 On/Off Footwear (QC): 7 Toileting Hygiene (QC): 7 Mod a to sit EOB due to needing assist to initiate. Anticipate pt does not require that much assistance but she was unable to start any task on her own. She stood with mod-max a. Retropulsive. Cues/assist to shift body weight forward. She took a few steps towards chair with min a and use of walker. Poor safety as she attempts to sit prior to reaching surface. Pt showed adequate LB ROM by demonstrating ability to cross legs. However, Assist needed to initiate figure 4 method due to inability to follow commands or initiate step of doffing/ donning socks. At this time, pt is dependent for all adls due to having zero initiation even with max cues. She required AAROM/PROM for all LB and UB exercises due to inability to follow verbal/visual/tactile cues. This OT evaluated patient 04/14/22 and pt exhibits same presentation. No improvement or worsening in skills identified. Baseline? Due to inability to follow any directions or actively participate in functional activity, pt is not appropriate for OT services at this time. OT will discharge. Education OT Patient Education: Correct positioning, Exercise program, Purpose of tx/functional activities, Rehab process, Safety issues, Transfer techniques Teaching Recipient: Patient Teaching Methods: Demonstration, Discussion Response to Teaching: Unable to Return Demonstration, Unable to Comprehend BIMS CAM BIMS Expression of Ideas and Wants: Frequently Understanding Verbal Content: Rarely/Never Understands Brief Interview/Mental Status: No Should Staff Asses. Mental St.: Yes Memory/Recall Ability: None of Above Recalled CAM Mental Status Change/Baseline: 1 Inattention: 1 Disorganized thinkin Altered level of consciousness: 0 OT Longterm Goals Autopsy Pathologist Goals 1=Demonstrate adherence to instructed precautions during ADL tasks. 2=Patient will verbalize/demonstrate understanding of assistive devices/modifications for ADL. 3=Patient will improve strength/tolerance for activity to enable patient to perform ADL's. OT Education/Plan Problem List/Assessment Assessment: No Skilled OT Needs ID'd Discharge Recommendations Plan/Recommendations: Discontinue OT Therapy Discharge Recommendati: 24 Hour Supervision Target Placement LTC Treatment Plan/Plan of Care Treatment,Training & Education: Yes Patient would benefit from OT for education, treatment and training to promote independence in ADL's, mobility, safety and/or upper extremity function for ADL's. Plan of Care: ADL Retraining, Caregiver Training, Cognitive Retraining, Functional Mobility Treatment Duration: Apr 18, 2022 Frequency: 1 time per week Estimated Hrs Per Day: .25 hour per day Rehab Potential: Poor Time/GCodes Start Time: 14:53 Stop Time: 15:16 Total Time Billed (hr/min): 23 Billed Treatment Time 1 visit EVM (8 min) FA (15 min) OT eval from [id number] Co- tx from [id number] Monik Cash OT Apr 18, 2022 15:25
[2022-04-18 15:55] VITALS: BP 114/62
[2022-04-18 18:04] VITALS: BP 123/65
[2022-04-18] MEDS: SINEMET 10/100 (CARBIDOPA/LEVADOPA) TAB PO SCH (18:19)
[2022-04-18] MEDS: ENOXAPARIN 40 MG/0.4 ML (LOVENOX) SYR SC SCH (18:19)
[2022-04-18] MEDS: NIRMATRELVIR/RITONAVIR (PAXLOVID) TABLET PO SCH (19:48)
[2022-04-18] MEDS: SENNOSIDES 8.6 MG (SENOKOT) TAB PO SCH (19:57)
[2022-04-18] MEDS: DOCUSATE SODIUM 100 MG (COLACE) CAP PO SCH (19:57)
[2022-04-18] MEDS: CATHETER FLUSH 10 ML SYR IVP SCH (20:00)
[2022-04-18 20:12] VITALS: BP 123/65
[2022-04-18] MEDS ORDERED: RT-ALBUTEROL HFA 8.5 GM INHALER IH SCH (21:00)
[2022-04-19] MEDS: CATHETER FLUSH 10 ML SYR IVP SCH ×3 (05:42→21:19)
[2022-04-19 07:16] VITALS: BP 133/71
[2022-04-19] MEDS: DOCUSATE SODIUM 100 MG (COLACE) CAP PO SCH ×4 (09:00→21:18)
[2022-04-19] MEDS: NIRMATRELVIR/RITONAVIR (PAXLOVID) TABLET PO SCH ×3 (09:00→09:44)
[2022-04-19] MEDS: SINEMET 10/100 (CARBIDOPA/LEVADOPA) TAB PO SCH ×3 (09:30→17:45)
[2022-04-19] MEDS: SENNOSIDES 8.6 MG (SENOKOT) TAB PO SCH ×2 (09:30→21:18)
[2022-04-19] MEDS: DULoxetine 30 MG (CYMBALTA) CAP PO SCH (09:30)
--- NOTE | 2022-04-19 11:26 | Physical Therapy Evaluation ---
PT Evaluation-General Medical Diagnosis Admission Date Apr 18, 2022 at 14:38 Medical Diagnosis: Covid 19 Onset Date: Apr 13, 2022 Therapy Diagnosis Therapy Diagnosis: debility Height/Weight Height (Feet): 5 Height (Inches): 4.00 Weight (Pounds): 125 Precautions Precautions/Isolations: Contact Isolation, Droplet Isolation, Fall Prevention, Pressure Ulcer Weight Bear Status Right Lower Extremity: Right Full Weight Bearing Left Lower Extremity: Left Full Weight Bearing Referral Physician: Claudio Reason for Referral: Evaluation/Treatment Medical History Pertinent Medical History: Arthritis, COPD Reviewed History: Yes Social History Home: Single Level Current Living Status: Alone Entry Into Home: Level Entry Prior Prior Level of Function SCALE: Activities may be completed with or without assistive devices. 2-Gmgyltbdki-aqkmubt completes the activity by him/herself with no assistance from a helper. 5-Set-up or Clean-up Assistance-helper sets up or cleans up; patient completes activity. [place] assists only prior to or following the activity. 4-Supervision or Touching Assistance-helper provides verbal cues and/or touching/steadying and/or contact guard assistance as patient completes activity. Assistance may be provided throughout the activity or intermittently. 3-Partial/Moderate Assistance-helper does LESS THAN HALF the effort. [place] lifts, holds or supports trunk or limbs, but provides less than half the effort. 2-Substantial/Maximal Assistance-helper does MORE THAN HALF the effort. [place] lifts or holds trunk or limbs and provides more than half the effort. 2-Gmuhlolvt-rbseyx does ALL the effort. Patient does none of the effort to complete the activity. Or, the assistance of 2 or more helpers is required for the patient to complete the activity. If activity was not attempted, code reason: 7-Patient Refused. 9-Not Applicable-not attempted and the patient did not perform the activity before the current illness, exacerbation or injury. 10-Not Attempted due to Environmental Limitations-(lack of equipment, weather restraints, etc.). 88-Not Attempted due to Medical Conditions or Safety Concerns. Bed Mobility: 6 Transfers (B,C,W/C): 6 Gait: 6 Indoor Mobility (Ambulation): Independent pt. states she was able to drive but didn't drive very often. PT Evaluation-Current Subjective Pt. in bed with eyes closed, does open with call to name from therapist, says "ok" to getting up to the chair. Pt. frequently closes her eyes throughout session but does awaken when prompted. Pain Section J - Health Conditions 1. Rarely or not at all 2. Occasionally 3. Frequently 4. Almost constantly 8. Unable to answer Pain Effect on Sleep: 2 Pain Interference with Therapy: 2 Pain Interference w/Day-to-Day: 2 Objective Patient Orientation: Person ROM/Strength ROM Upper Extremities decreased ROM Lower Extremities WFL Strength Upper Extremities n/a Strength Lower Extremities grossly 3+/5 (B) Integumentary/Posture Bowel Incontinence: No Bladder Incontinence: No Neuromuscular (Tone, Coordination, Reflexes) diminished Sensory Vision: Functional Hearing: Functional Transfers Roll Left & Right (QC): 2 Sit to Lying (QC): 7 Lying to Sitting/Side of Bed(Q: 2 Sit to Stand (QC): 1 Chair/Hes-dz-Lhqrv Xfer(QC): 1 Toilet Transfer (QC): 88 Car Transfer (QC): 88 Gait Does the Patient Walk?: Yes Mode of Locomotion: Walk Anticipated Mode of Locomotion: Walk Walk 10 feet (QC): 88 Walk 50 ft with 2 Turns(QC): 88 Walk 150 ft (QC): 88 Walking 10ft/uneven surface-QC: 88 Wheelchair Training Does the Pt Use a Wheelchair?: No Wheel 50 ft with 2 turns (QC): 9 Wheel 150 ft (QC): 9 Stairs 1 Step (curb) (QC): 9 4 Steps (QC): 9 12 Steps (QC): 9 Balance Sitting Static: Fair Sitting Dynamic: Poor Standing Static: Poor Standing Dynamic: Poor Picking up an Object (QC): 88 Treatment seated LE exercise: APs, LAQ, seated marches x 10 - frequent cues needed for seated marches and finally patient said "I don't have the energy for that one." Assessment/Needs Pt. is a 81 y.o. female with debility. Pt. was able to follow some commands for transfers out of bed but continued to need max A from therapist. Pt. did respond appropriately to therapist questions the majority of the time and did seem more alert and improved ability to follow commands than past therapy evaluation notes. Pt. was very retropulsive while standing. We did attempt transfer to chair with use of FWW but patient's feet slid forward due to significant retropulsion and had to discontinue use of device and transfer with mod-max A x 2. Pt. would benefit from skilled PT to improve mobility, strength and safety, discharge destination unknown at this time. Rehab Potential: Fair PT Business Reporter Goals [facility] Goals PT [facility] Goals Time Frame: May 03, 2022 Scoring Section J - Health Conditions 1. Rarely or not at all 2. Occasionally 3. Frequently 4. Almost constantly 8. Unable to answer Roll Left to Right (QC): 4 Sit to Lying (QC): 4 Lying-Sitting on Side/Bed(QC): 4 Sit to Stand (QC): 3 Chair/Bxv-kq-Vrisr Xfer(QC): 3 Does the Patient Walk: No and Walking Goal IS indicated Walk 10 feet (QC): 3 Gait Assistive Device: FWW PT Plan Problem List Problem List: Activity Tolerance, Functional Strength, Safety, Balance, Gait, Transfer, Bed Mobility, ROM Treatment/Plan Treatment Plan: Continue Plan of Care Treatment Plan: Bed Mobility, Concurrent Therapy, Education, Functional Activity Kiet, Functional Strength, Gait, Safety, Therapeutic Exercise, Transfers, Other Treatment Duration: May 03, 2022 Frequency: 6 times per week Estimated Hrs Per Day: .25 hour per day Patient and/or Family Agrees t: Yes Time/GCodes Time In: 1012 Time Out: 1035 Total Billed Treatment Time: 23 Total Billed Treatment 1, EVC 8', FA 15' YOKASTA MORROW PT Apr 19, 2022 11:26
[2022-04-19 11:43] VITALS: BP 125/72
[2022-04-19] MEDS: ENOXAPARIN 40 MG/0.4 ML (LOVENOX) SYR SC SCH (17:45)
[2022-04-19 20:15] VITALS: BP 124/54
[2022-04-19] MEDS: ALPRAZolam 0.25 MG (XANAX) TAB PO PRN (21:18)
[2022-04-19] MEDS: MELATONIN 3 MG TABLET PO PRN (21:18)
[2022-04-20] MEDS: CATHETER FLUSH 10 ML SYR IVP SCH ×3 (06:09→19:58)
[2022-04-20] MEDS: DULoxetine 30 MG (CYMBALTA) CAP PO SCH (08:04)
[2022-04-20] MEDS: DOCUSATE SODIUM 100 MG (COLACE) CAP PO SCH ×2 (08:04→19:57)
[2022-04-20] MEDS: SENNOSIDES 8.6 MG (SENOKOT) TAB PO SCH ×2 (08:04→19:57)
[2022-04-20] MEDS: SINEMET 10/100 (CARBIDOPA/LEVADOPA) TAB PO SCH ×3 (08:04→17:25)
[2022-04-20] MEDS: NIRMATRELVIR/RITONAVIR (PAXLOVID) TABLET PO SCH ×2 (08:05→19:57)
[2022-04-20 08:25] VITALS: BP 123/67
[2022-04-20 12:11] VITALS: BP 137/71
[2022-04-20] MEDS: ENOXAPARIN 40 MG/0.4 ML (LOVENOX) SYR SC SCH (17:26)
[2022-04-20 19:42] VITALS: BP 119/74
[2022-04-20] MEDS: MELATONIN 3 MG TABLET PO PRN (19:54)
[2022-04-20] MEDS: ALPRAZolam 0.25 MG (XANAX) TAB PO PRN (23:09)
[2022-04-21] MEDS: CATHETER FLUSH 10 ML SYR IVP SCH ×3 (06:24→20:03)
[2022-04-21] MEDS: DOCUSATE SODIUM 100 MG (COLACE) CAP PO SCH ×2 (07:29→20:00)
[2022-04-21] MEDS: SENNOSIDES 8.6 MG (SENOKOT) TAB PO SCH ×2 (07:29→20:01)
[2022-04-21 07:39] VITALS: BP 134/75
[2022-04-21] MEDS: DULoxetine 30 MG (CYMBALTA) CAP PO SCH (08:43)
[2022-04-21] MEDS: SINEMET 10/100 (CARBIDOPA/LEVADOPA) TAB PO SCH ×3 (08:44→17:31)
[2022-04-21] MEDS: NIRMATRELVIR/RITONAVIR (PAXLOVID) TABLET PO SCH (08:44)
--- NOTE | 2022-04-21 10:41 | Physical Therapy Daily Note ---
PT Daily Note-Current Subjective Patient requires a lot of encouragement to participate with therapy. Pain Section J - Health Conditions 1. Rarely or not at all 2. Occasionally 3. Frequently 4. Almost constantly 8. Unable to answer Pain Effect on Sleep: 2 Pain Interference with Therapy: 2 Pain Interference w/Day-to-Day: 2 Mental Status Patient Orientation: Confused Transfers SCALE: Activities may be completed with or without assistive devices. 6-Ryxgjotnys-wkrhytj completes the activity by him/herself with no assistance from a helper. 5-Set-up or Clean-up Assistance-helper sets up or cleans up; patient completes activity. [place] assists only prior to or following the activity. 4-Supervision or Touching Assistance-helper provides verbal cues and/or touching/steadying and/or contact guard assistance as patient completes activity. Assistance may be provided throughout the activity or intermittently. 3-Partial/Moderate Assistance-helper does LESS THAN HALF the effort. [place] lifts, holds or supports trunk or limbs, but provides less than half the effort. 2-Substantial/Maximal Assistance-helper does MORE THAN HALF the effort. [place] lifts or holds trunk or limbs and provides more than half the effort. 7-Aplyckjbl-gfnwcw does ALL the effort. Patient does none of the effort to complete the activity. Or, the assistance of 2 or more helpers is required for the patient to complete the activity. If activity was not attempted, code reason: 7-Patient Refused. 9-Not Applicable-not attempted and the patient did not perform the activity before the current illness, exacerbation or injury. 10-Not Attempted due to Environmental Limitations-(lack of equipment, weather restraints, etc.). 88-Not Attempted due to Medical Conditions or Safety Concerns. Sit to Stand (QC): 2 Toilet Transfer (QC): 2 Weight Bearing Right Lower Extremity: Right Full Weight Bearing Left Lower Extremity: Left Full Weight Bearing Gait Training Distance: 15' x 2 Walk 10 feet (QC): 3 Gait Assistive Device: FWW slightly retropulsive with sit to stand and with ambulation Assessment Patient transferred to toilet to have a BM. Patient tolerated treatment well and remains up in recliner with chair alarm activated. Patient continues to keep eye closed but did participate with therapy on this date. PT Long-Term Goals Long-Term Goals PT Long-Term Goals Time Frame: May 03, 2022 Roll Left & Right (QC): 4 Sit to Lying (QC): 4 Lying-Sitting on Side/Bed(QC): 4 Sit to Stand (QC): 3 Chair/Cpg-oo-Vekfv Xfer(QC): 3 Toilet Transfer (QC): 3 Car Transfer (QC): 3 Does the Patient Walk: No and Walking Goal IS indicated Walk 10 feet (QC): 3 Walk 50ft with 2 Turns (QC): 3 Walk 150 ft (QC): 3 Walking 10ft on Uneven Surface: 3 1 Step (curb) (QC): 9 4 Steps (QC): 9 12 Steps (QC): 9 Picking up an Object (QC): 88 Wheel 50 feet with 2 turns (QC: 9 Wheel 150 feet: 9 PT Plan Treatment/Plan Treatment Plan: Continue Plan of Care Treatment Plan: Bed Mobility, Concurrent Therapy, Education, Functional Activity Kiet, Functional Strength, Gait, Safety, Therapeutic Exercise, Trans fers, Other Treatment Duration: May 03, 2022 Frequency: 6 times per week Estimated Hrs Per Day: .25 hour per day Patient and/or Family Agrees t: Yes Time/GCodes Time In: 1000 Time Out: 1015 Total Billed Treatment Time: 15 Total Billed Treatment 1 visit FA 15 min JOHNATHON LEIGH PT Apr 21, 2022 10:41
--- NOTE | 2022-04-21 11:26 | Occ Therapy Progress Note ---
Therapy Progress Note OT orders received. OT evaluation attempted at 1045, pt up in recliner with eyes closed. Pt briefly opened eyes to her name, but wouldn't keep eyes open or respond to therapist. Pt unable to participate in skilled OT evaluation at this time due to lethargy, and difficulty following instructions. OT will attempt evaluation again at next available time. 1, visit ULYSSES TRAVIS OT Apr 21, 2022 11:26
--- NOTE | 2022-04-21 13:26 | Occ Therapy Progress Note ---
Therapy Progress Note OT attempted evaluation again this afternoon, pt more alert compared to morning attempt, but refused to participate OT tx. OT educated pt on purpose and benefit, but she continued to refuse even with encouragement. OT will attempt evaluation again next available date. 1, refusal 1320 ULYSSES TRAVIS OT Apr 21, 2022 13:26
[2022-04-21] MEDS: ENOXAPARIN 40 MG/0.4 ML (LOVENOX) SYR SC SCH (17:31)
[2022-04-21 20:00] VITALS: BP 120/68
[2022-04-22] MEDS: CATHETER FLUSH 10 ML SYR IVP SCH ×3 (05:57→21:50)
[2022-04-22 07:21] VITALS: BP 133/67
[2022-04-22] MEDS: SINEMET 10/100 (CARBIDOPA/LEVADOPA) TAB PO SCH ×3 (09:07→17:20)
[2022-04-22] MEDS: DULoxetine 30 MG (CYMBALTA) CAP PO SCH (09:07)
[2022-04-22] MEDS: DOCUSATE SODIUM 100 MG (COLACE) CAP PO SCH ×2 (09:15→21:50)
[2022-04-22] MEDS: SENNOSIDES 8.6 MG (SENOKOT) TAB PO SCH ×2 (09:15→21:50)
--- NOTE | 2022-04-22 10:24 | Physical Therapy Daily Note ---
PT Daily Note-Current Subjective Patient agrees to PT. Pain Section J - Health Conditions 1. Rarely or not at all 2. Occasionally 3. Frequently 4. Almost constantly 8. Unable to answer Pain Effect on Sleep: 2 Pain Interference with Therapy: 2 Pain Interference w/Day-to-Day: 2 Mental Status Patient Orientation: Confused Transfers SCALE: Activities may be completed with or without assistive devices. 7-Khqnegvxui-bevsovy completes the activity by him/herself with no assistance from a helper. 5-Set-up or Clean-up Assistance-helper sets up or cleans up; patient completes activity. [place] assists only prior to or following the activity. 4-Supervision or Touching Assistance-helper provides verbal cues and/or touching/steadying and/or contact guard assistance as patient completes activity. Assistance may be provided throughout the activity or intermittently. 3-Partial/Moderate Assistance-helper does LESS THAN HALF the effort. [place] lifts, holds or supports trunk or limbs, but provides less than half the effort. 2-Substantial/Maximal Assistance-helper does MORE THAN HALF the effort. [place] lifts or holds trunk or limbs and provides more than half the effort. 6-Jlpvcczrz-wugden does ALL the effort. Patient does none of the effort to complete the activity. Or, the assistance of 2 or more helpers is required for the patient to complete the activity. If activity was not attempted, code reason: 7-Patient Refused. 9-Not Applicable-not attempted and the patient did not perform the activity before the current illness, exacerbation or injury. 10-Not Attempted due to Environmental Limitations-(lack of equipment, weather restraints, etc.). 88-Not Attempted due to Medical Conditions or Safety Concerns. Sit to Stand (QC): 3 (mod assist) Toilet Transfer (QC): 3 Weight Bearing Right Lower Extremity: Right Full Weight Bearing Left Lower Extremity: Left Full Weight Bearing Gait Training Distance: 200' Walk 10 feet (QC): 3 Walk 50 ft with 2 Turns(QC): 3 Walk 150 ft (QC): 3 Gait Assistive Device: FWW mod assist with PT assist to advance FWW/flexed bilateral knee posture with mild shuffle gait sequence Assessment Patient improving with treatment plan and is left with nursing staff in restroom. PT to continue to increase activity as tolerated by patient. PT Product Management Analyst Goals [facility] Goals PT [facility] Goals Time Frame: May 03, 2022 Roll Left & Right (QC): 4 Sit to Lying (QC): 4 Lying-Sitting on Side/Bed(QC): 4 Sit to Stand (QC): 3 Chair/Ylo-qb-Ppxhl Xfer(QC): 3 Toilet Transfer (QC): 3 Car Transfer (QC): 3 Does the Patient Walk: No and Walking Goal IS indicated Walk 10 feet (QC): 3 Walk 50ft with 2 Turns (QC): 3 Walk 150 ft (QC): 3 Walking 10ft on Uneven Surface: 3 1 Step (curb) (QC): 9 4 Steps (QC): 9 12 Steps (QC): 9 Picking up an Object (QC): 88 Wheel 50 feet with 2 turns (QC: 9 Wheel 150 feet: 9 PT Plan Treatment/Plan Treatment Plan: Continue Plan of Care Treatment Plan: Bed Mobility, Concurrent Therapy, Education, Functional Activity Kiet, Functional Strength, Gait, Safety, Therapeutic Exercise, Transfers, Other Treatment Duration: May 03, 2022 Frequency: 6 times per week Estimated Hrs Per Day: .25 hour per day Patient and/or Family Agrees t: Yes Time/GCodes Time In: 1003 Time Out: 1018 Total Billed Treatment Time: 15 Total Billed Treatment 1 visit GT 15 min JOHNATHON LEIGH PT Apr 22, 2022 10:24
--- NOTE | 2022-04-22 11:48 | Occupational Therapy Eval ---
OT Evaluation-General/PLF Medical Diagnosis Admission Date Apr 18, 2022 at 14:38 Medical Diagnosis: Covid 19 Onset Date: Apr 13, 2022 Therapy Diagnosis Therapy Diagnosis: reduced adl status Height/Weight Height (Feet): 5 Height (Inches): 4.00 Weight (Pounds): 125 Precautions Precautions/Isolations: Fall Prevention, Standard Precautions Referral Physician: Claudio Referral Reason: Evaluation/Treatment Medical History Pertinent Medical History: Arthritis, COPD Current History Pt came to ER after son found her on the bathroom floor. Per chart, she lives alone in a 1 story home. Her son comes and checks on her daily. Pt reports independence with adls, yet is a poor historian. No family present to verify accuracy of responses. Social History Home: Single Level Current Living Status: Alone Entry Into Home: Level Entry ADL-Prior Level of Function SCALE: Activities may be completed with or without assistive devices. 4-Rzwijkdgaq-mwkkkgp completes the activity by him/herself with no assistance from a helper. 5-Set-up or Clean-up Assistance-helper sets up or cleans up; patient completes activity. [place] assists only prior to or following the activity. 4-Supervision or Touching Assistance-helper provides verbal cues and/or touching/steadying and/or contact guard assistance as patient completes activity. Assistance may be provided throughout the activity or intermittently. 3-Partial/Moderate Assistance-helper does LESS THAN HALF the effort. [place] lifts, holds or supports trunk or limbs, but provides less than half the effort. 2-Substantial/Maximal Assistance-helper does MORE THAN HALF the effort. [place] lifts or holds trunk or limbs and provides more than half the effort. 0-Asngzkvij-rmeiqo does ALL the effort. Patient does none of the effort to complete the activity. Or, the assistance of 2 or more helpers is required for the patient to complete the activity. If activity was not attempted, code reason: 7-Patient Refused. 9-Not Applicable-not attempted and the patient did not perform the activity before the current illness, exacerbation or injury. 10-Not Attempted due to Environmental Limitations-(lack of equipment, weather restraints, etc.). 88-Not Attempted due to Medical Conditions or Safety Concerns. Self Care: Unknown Functional Cognition: Unknown OT Current Status Subjective Pt is very [place], requires repetition and simplification at times. She is able to follow very simple 1 step commands this date when compared to past sessions with this therapist. Appearance Pt returned to sitting in chair, all needs within reach at OT departure. Mental Status/Objective Patient Orientation: Person, Confused Current Hearing Aids: No Dentures/Partials: Yes Hand Dominance: Right Upper Extremity ROM Bilateral shoulders: ~160 degrees Elbow/wrist appear WNL Upper Extremity Strength 3+/5 grossly ADL-Treatment Eating (QC): 4 Oral Hygiene (QC): 7 Shower/Bathe Self (QC): 7 Upper Body Dressing (QC): 7 Lower Body Dressing (QC): 3 (per clinical judgment (for clothing management and balance)) On/Off Footwear (QC): 4 Toileting Hygiene (QC): 7 Pt sitting in recliner at OT arrival. She was able to follow very simple commands when given enough time. This is an improvement when compared to last week. Repetition needed at times secondary to being very [place]IQ. Pt able to demonstrate ability to don/doff socks without difficulty. Anticipate SBA for cues/safety when threading LE's into LB clothing. She stood with mod A, initially retropulsive but quickly improves. She ambulated within room and stood at sink to wash her hands. Mod-max cues for sequencing through steps. Min a for balance during standing tasks. Pt refuses all other adls as she reports fatigue after minimal activity. Other Treatments Pt participated in UE AROM exercises with goal to improve endurance, strength and ROM needed for functional tasks. Mod visual and verbal cues required for control and technique. Poor coordination observed when given bilateral move ments, thus exercises modified to only 1 UE at at time. Pt often softly repeated the number of reps as OT counts out loud. 1x10 all planes. Education OT Patient Education: Correct positioning, Energy conservation, Exercise program, Modified ADL techniques, Progress toward Goal/Update tx plan, Purpose of tx/functional activities, Rehab process, Safety issues, Transfer techniques Teaching Recipient: Patient Teaching Methods: Demonstration, Discussion Response to Teaching: Reinforcement Needed OT Short Term Goals Short Term Goals Time Frame: Apr 29, 2022 Eatin Oral hygiene: 4 Toileting hygiene: 3 Shower/bathe self: 3 Upper body dressin Lower body dressin Putting on/taking off footwear: 5 OT Shelter Goals Water Tanker Driver Goals Time Frame: May 13, 2022 Eating (QC): 5 Oral Hygiene (QC): 5 Toileting Hygiene (QC): 4 Shower/Bathe Self (QC): 4 Upper Body Dressing (QC): 4 Lower Body Dressing (QC): 4 On/Off Footwear (QC): 5 1=Demonstrate adherence to instructed precautions during ADL tasks. 2=Patient will verbalize/demonstrate understanding of assistive devices/modifications for ADL. 3=Patient will improve strength/tolerance for activity to enable patient to perform ADL's. OT Education/Plan Problem List/Assessment Assessment: Decreased Activ Tolerance, Decreased Safety Aware, Decreased UE Strength, Impaired Cognition, Impaired Coordination, Impaired Funct Balance, Impaired I ADL's, Impaired Self-Care Skills, Restricted Funct UE ROM Discharge Recommendations Plan/Recommendations: Continue POC Therapy Discharge Recommendati: Post Acute OT Treatment Plan/Plan of Care Treatment,Training & Education: Yes Patient would benefit from OT for education, treatment and training to promote independence in ADL's, mobility, safety and/or upper extremity function for ADL's. Plan of Care: ADL Retraining, Caregiver Training, Cognitive Retraining, Functional Mobility Treatment Duration: Apr 18, 2022 Frequency: 5 times per week Estimated Hrs Per Day: .25 hour per day Rehab Potential: Poor Time/GCodes Start Time: 11:16 Stop Time: 11:39 Total Time Billed (hr/min): 23 Billed Treatment Time 1 visit EVM (8 min) EX (15 min) Monik Cash OT Apr 22, 2022 11:48
--- NOTE | 2022-04-22 13:43 | Progress Note - Hospitalist ---
Subjective HPI/CC On Admission Date Seen by Provider: Apr 22, 2022 Subjective/Events-last exam Pt reports doing well. No complaints. Worked with PT and did well. Objective Exam Vital Signs Vital Signs Date Time Temp Pulse Resp B/P (MAP) Pulse Ox O2 Delivery O2 Flow Rate FiO2 04/22/22 08:50 Room Air 04/22/22 07:26 96 04/22/22 07:21 36.2 76 18 133/67 (89) 04/20/22 09:31 0.00 Capillary Refill : General Appearance: No Apparent Distress, Chronically ill Respiratory: Lungs Clear, No Respiratory Distress Cardiovascular: Regular Rate, Rhythm, No Murmur Neurologic/Psychiatric: Alert, Oriented x3 Results/Procedures Lab Patient resulted labs reviewed. Assessment/Plan Assessment and Plan Assess & Plan/Chief Complaint COVID-19 Out of isolation No oxygen requirement Completed Paxlovid Ground level fall Recent falls Rhabdomyolysis Parkinson's disease Debility Imaging without acute abnormalities, no fracture PT/OT Continue to improve with therapy Continue Sinemet SW following Depression Anxiety Continue home meds DVT prophylaxis: Lovenox Hypokalemia, resolved LAKSHMI HENDRIX MD Apr 22, 2022 13:43
[2022-04-22] MEDS: ENOXAPARIN 40 MG/0.4 ML (LOVENOX) SYR SC SCH (17:24)
[2022-04-22 20:08] VITALS: BP 146/67
[2022-04-23] MEDS: CATHETER FLUSH 10 ML SYR IVP SCH ×3 (04:30→22:50)
[2022-04-23 08:02] VITALS: BP 117/65
[2022-04-23] MEDS: SINEMET 10/100 (CARBIDOPA/LEVADOPA) TAB PO SCH ×3 (08:41→17:25)
[2022-04-23] MEDS: SENNOSIDES 8.6 MG (SENOKOT) TAB PO SCH ×2 (08:41→21:00)
[2022-04-23] MEDS: DOCUSATE SODIUM 100 MG (COLACE) CAP PO SCH ×2 (08:41→21:00)
[2022-04-23] MEDS: DULoxetine 30 MG (CYMBALTA) CAP PO SCH (08:42)
--- NOTE | 2022-04-23 09:45 | Occupational Ther Daily Note ---
OT Current Status-Daily Note Subjective Pt laying in bed asleep upon arrival. Pt very lethargic, requiring several verbal cues to communicate/participate. Pt c/o no pain. Mental Status/Objective Patient Orientation: Confused, Eyes Open ADL-Treatment Pt was able to assist with rolling from supine to L and R side. Pt able to grasp objects using body for stabilization. Pt able to bring drink to mouth independently. Pt was very lethargic and required several VC's to communicate/participate. Pt in bed at end of session with call light and phone within reach. All needs met in room. Therapy Code Descriptions/Definitions Functional [place] Measure: 0=Not Assessed/NA 4=Minimal Assistance 1=Total Assistance 5=Supervision or Setup 2=Maximal Assistance 6=Modified [place] 3=Moderate Assistance 7=Complete IndependenceSCALE: Activities may be completed with or without assistive devices. 3-Yxmplwdzyx-kuuvaxa completes the activity by him/herself with no assistance from a helper. 5-Set-up or Clean-up Assistance-helper sets up or cleans up; patient completes activity. [place] assists only prior to or following the activity. 4-Supervision or Touching Assistance-helper provides verbal cues and/or touching /steadying and/or contact guard assistance as patient completes activity. Assistance may be provided throughout the activity or intermittently. 3-Partial/Moderate Assistance-helper does LESS THAN HALF the effort. [place] lifts, holds or supports trunk or limbs, but provides less than half the effort. 2-Substantial/Maximal Assistance-helper does MORE THAN HALF the effort. [place] lifts or holds trunk or limbs and provides more than half the effort. 4-Zbkovxpzh-bbqmni does ALL the effort. Patient does none of the effort to complete the activity. Or, the assistance of 2 or more helpers is required for the patient to complete the activity. If activity was not attempted, code reason: 7-Patient Refused. 9-Not Applicable-not attempted and the patient did not perform the activity before the current illness, exacerbation or injury. 10-Not Attempted due to Environmental Limitations-(lack of equipment, weather restraints, etc.). 88-Not Attempted due to Medical Conditions or Safety Concerns. OT Short Term Goals Short Term Goals Time Frame: Apr 29, 2022 Eatin Oral hygiene: 4 Toileting hygiene: 3 Shower/bathe self: 3 Upper body dressin Lower body dressin Putting on/taking off footwear: 5 OT Longterm Goals Ferryboat Operator Cable Goals Time Frame: May 13, 2022 Eating (QC): 5 Oral Hygiene (QC): 5 Toileting Hygiene (QC): 4 Shower/Bathe Self (QC): 4 Upper Body Dressing (QC): 4 Lower Body Dressing (QC): 4 On/Off Footwear (QC): 5 1=Demonstrate adherence to instructed precautions during ADL tasks. 2=Patient will verbalize/demonstrate understanding of assistive devices/modifications for ADL. 3=Patient will improve strength/tolerance for activity to enable patient to perform ADL's. OT Education/Plan Problem List/Assessment Assessment: Decreased Safety Aware, Decreased UE Strength, Impaired Cognition, Impaired Coordination, Impaired I ADL's, Impaired Self-Care Skills Discharge Recommendations Plan/Recommendations: Continue POC Treatment Plan/Plan of Care Patient would benefit from OT for education, treatment and training to promote independence in ADL's, mobility, safety and/or upper extremity function for ADL's. Plan of Care: ADL Retraining, Caregiver Training, Cognitive Retraining, Functional Mobility Treatment Duration: Apr 18, 2022 Frequency: 5 times per week Estimated Hrs Per Day: .25 hour per day Rehab Potential: Poor Time/GCodes Start Time: 09:20 Stop Time: 09:55 Total Time Billed (hr/min): 35 Billed Treatment Time 1 visit FA 2 (35 min) RAMYA STEPHEN Apr 23, 2022 09:45
[2022-04-23] MEDS ORDERED: CARB1TAB30 PO (10:28)
--- NOTE | 2022-04-23 11:37 | Physical Therapy Daily Note ---
PT Daily Note-Current Subjective Patient in bed pre tx, agrees to PT with encouragement, states she has pain "all over". Pain Section J - Health Conditions 1. Rarely or not at all 2. Occasionally 3. Frequently 4. Almost constantly 8. Unable to answer Pain Effect on Sleep: 2 Pain Interference with Therapy: 2 Pain Interference w/Day-to-Day: 2 Appearance Patient in recliner post tx with nurse call, phone, tray, chair alarm on. Mental Status Patient Orientation: Person, Confused Transfers SCALE: Activities may be completed with or without assistive devices. 1-Jbdifhjlij-zdtvbsd completes the activity by him/herself with no assistance from a helper. 5-Set-up or Clean-up Assistance-helper sets up or cleans up; patient completes activity. [place] assists only prior to or following the activity. 4-Supervision or Touching Assistance-helper provides verbal cues and/or touching/steadying and/or contact guard assistance as patient completes activity. Assistance may be provided throughout the activity or intermittently. 3-Partial/Moderate Assistance-helper does LESS THAN HALF the effort. [place] lifts, holds or supports trunk or limbs, but provides less than half the effort. 2-Substantial/Maximal Assistance-helper does MORE THAN HALF the effort. [place] lifts or holds trunk or limbs and provides more than half the effort. 4-Aeqkealxz-lesgyn does ALL the effort. Patient does none of the effort to complete the activity. Or, the assistance of 2 or more helpers is required for the patient to complete the activity. If activity was not attempted, code reason: 7-Patient Refused. 9-Not Applicable-not attempted and the patient did not perform the activity before the current illness, exacerbation or injury. 10-Not Attempted due to Environmental Limitations-(lack of equipment, weather restraints, etc.). 88-Not Attempted due to Medical Conditions or Safety Concerns. Roll Left & Right (QC): 3 Lying to Sitting/Side of Bed(Q: 3 Sit to Stand (QC): 3 Chair/Iiu-yw-Lihyo Xfer(QC): 3 Weight Bearing Right Lower Extremity: Right Full Weight Bearing Left Lower Extremity: Left Full Weight Bearing Gait Training Distance: 50' Walk 10 feet (QC): 3 Walk 50 ft with 2 Turns(QC): 3 Gait Assistive Device: FWW Patient needed assist guiding walker and with balance. Patient states she is very tired and a couple of times she stops and head slumps like she is trying to go to sleep standing up, needed cues to continue, barely was able to get back to her room and into the recliner. Exercises attempted LE exercise, she did a few reps of LAQ but would do no more than that Treatments bed mobility and transfers, ambulation Assessment Current Status: Poor Progress improved participation but still has poor motivation PT Supervisor Rolling Room Goals Mcc Goals PT Mcc Goals Time Frame: May 03, 2022 Roll Left & Right (QC): 4 Sit to Lying (QC): 4 Lying-Sitting on Side/Bed(QC): 4 Sit to Stand (QC): 3 Chair/Qlm-wf-Cjfes Xfer(QC): 3 Toilet Transfer (QC): 3 Car Transfer (QC): 3 Does the Patient Walk: No and Walking Goal IS indicated Walk 10 feet (QC): 3 Walk 50ft with 2 Turns (QC): 3 Walk 150 ft (QC): 3 Walking 10ft on Uneven Surface: 3 1 Step (curb) (QC): 9 4 Steps (QC): 9 12 Steps (QC): 9 Picking up an Object (QC): 88 Wheel 50 feet with 2 turns (QC: 9 Wheel 150 feet: 9 PT Plan Problem List Problem List: Activity Tolerance, Functional Strength, Safety, Balance, Gait, Transfer, Bed Mobility, ROM Treatment/Plan Treatment Plan: Continue Plan of Care Treatment Plan: Bed Mobility, Concurrent Therapy, Education, Functional Activity Kiet, Functional Strength, Gait, Safety, Therapeutic Exercise, Transfers, Other Treatment Duration: May 03, 2022 Frequency: 6 times per week Estimated Hrs Per Day: .25 hour per day Patient and/or Family Agrees t: Yes Safety Risks/Education Patient Education: Gait Training, Transfer Techniques, Correct Positioning, Safety Issues Teaching Recipient: Patient Teaching Methods: Demonstration, Discussion Response to Teaching: Reinforcement Needed Time/GCodes Time In: 1109 Time Out: 1119 Total Billed Treatment Time: 10 Total Billed Treatment 1 visit FA DONNELL ARNOLD PT Apr 23, 2022 11:37
--- NOTE | 2022-04-23 12:23 | ST Cognitive Linguistic Eval ---
Speech Evaluation-General Medical Diagnosis COVID 19, AMS Onset Date: Apr 13, 2022 Therapy Diagnosis Therapy Diagnosis: Impaired Cognitive Skills (Markedly) Precautions Precautions: Fall, Pressure Ulcer Precautions/Isolations: Fall Prevention, Standard Precautions, Pressure Ulcer Referral Referring Physician: Dr. Woodard Reason for Referral: Evaluation/Treatment Medical History Pertinent Medical History: Arthritis, COPD Current History The patient is a 81 year-old female with a past medical history of arthritis and COPD, who presented to the ED after being found on her bathroom floor by her son. Reviewed History: Yes Social History Current Living Status: Alone Speech PLF-Current Status Prior Level of Function The patient was unable to provide information to the clinician regarding her prior level of function. Per documentation, fluctuating levels of confusion have been displayed throughout her hospitalization. Subjective The patient was seated upright in her recliner, awake and alert, upon entrance to her room by the clinician. The patient greeted the clinician appropriately and was agreeable to participation in the cognitive linguistic assessment. The patient appears hard of hearing and elevated vocal intensity is required for communication. Language Eval: Auditory Comprehends Simple Yes/No Ques: Mild Indent/Objects Multiple Gautam: Functional Follows 1-Step Commands: Moderate (With repetition.) Follows General Conversations: Moderate Language Eval: Verbal Language Completes Spontaneous Greeting: Functional Produces Auto, Serial Info: Functional Imitates Simple Words/Phrases: Moderate Word Finding: Moderate Requests Basic Needs: Moderate States Basic Personal Info: Moderate Cognitive Patient Orientation The patient is not oriented to location, month, day of the week or year. The patient often states, "Well, that's a good question girl." Objective Cognitive Domain Attention: Moderate Memory: Severe Problem Solving: Severe Executive Functions: Severe Composite Severity Rating: Moderate The patient refused the clock-drawing task. Objective Formal/Standardized Tests [facility] Mental Status Exam (UMS) Results The patient demonstrated a result of +2/20 on the SLUMS correlating to a severe cognitive impairment/"dementia" per rating scale. Oral Motor/Speech Production The patient does not display dysarthria or apraxia of speech. Reduced articulatory precision is present due to the lack of dentition. Impression The patient demonstrated severe cognitive linguistic impairments in all areas evaluated which included orientation, word-finding, auditory comprehension, memory, attention, and problem solving. Per chart review, the patient was living alone prior to admission. At this time, the speech pathologist does not recommend discharge home alone. A more appropriate, safe discharge location would be a group home facility due to the current cognitive decline demonstrated. Speech Patient Assess Expression of Ideas/Wants: Rarely/Never (1) Understanding Verbal Content: Rarely/Never Understand (1) Brief Interview-Mental Status: Yes Repetition of Three Words: None (0) Temporal Orientation: Year: No answer (0) Temporal Orientation: Month: No answer (0) Temporal Orientation: Day: Incorrect or No Answer(0) Recall : Wear to say "Sock": No, could not recall (0) Recall : Color: No, could not recall (0) Recall : Bed: No, could not recall (0) Memory/Recall Ability: None of the above were recalled Speech Short Term Goals Short Term Goals Short Term Goals 1. The patient will display increased safety awareness with mild verbal cueing from the clinician. Time Frame-STG: Five Days. Speech Half-Way Goals Vertical Roll Operator Goals 1. The patient will display improvement of cognitive linguistic skills for safe discharge to the least restrictive environment. Time Frame: One Week. Speech-Plan Treatment Plan Speech Therapy Treatment Plan: Modify Plan, See Comments (The clinician will provide skilled therapy if stimulability can be demonstrated. If progression is not displayed, the patient will be discharged.) Treatment Duration: Apr 30, 2022 Frequency: 2 times per week Estimated Hrs Per Day: .25 hour per day Rehab Potential: Poor Safety Risks/Education Teaching Recipient: Patient Teaching Methods: Discussion Response to Teaching: Unable to Comprehend Education Topics Provided: Results, Recommendations, Plan of Care Discharge Recommendations 24 Hour Supervision ([facility].) Time Speech Therapy Time In: 12:00 Speech Therapy Time Out: 12:20 Total Billed Time: 20 Billed Treatment Time 1, FREDI SAUCEDO [facility] ST Apr 23, 2022 12:23
[2022-04-23 16:00] VITALS: BP 129/68
[2022-04-23] MEDS: ENOXAPARIN 40 MG/0.4 ML (LOVENOX) SYR SC SCH (17:25)
[2022-04-23 19:52] VITALS: BP 113/69
[2022-04-24] MEDS: CATHETER FLUSH 10 ML SYR IVP SCH (05:38)
--- NOTE | 2022-04-24 07:24 | Therapy Team Discharge Summary ---
Therapy Discharge Summary Discharge Recommendations Date of Discharge Physical Therapy Patient will dismiss to [place] for continued skilled care due to slow gross motor progress. Patient continues to require mod assist with all functional mobility and tolerates minimal activity. Patient fatigues quickly and is inconsistent with compliance with participation with skilled therapy. Patient will benefit from continued skilled therapy to address strength and safe mobility. Roll Left to Right (QC): 3 Sit to Lying (QC): 3 Lying to Sitting/Side of Bed(Q: 3 Sit to Stand (QC): 3 Chair/Nxy-vh-Jfxct Xfer(QC): 3 Toilet Transfer (QC): 3 Car Transfer (QC): 3 Does the Patient Walk: Yes Mode of Locomotion: Walk Anticipated Mode of Locomotion: Walk Walk 10 feet (QC): 3 Walk 50 ft with 2 Turns(QC): 3 Walk 150 ft (QC): 3 Walking 10ft on uneven surface: 3 Distance: 200' Gait Assistive Device: FWW Does the Pt Use a Wheelchair: No Wheel 50 ft with 2 turns (QC): 9 Wheel 150 ft (QC): 9 Type of Wheelchair: N/A 1 Step (curb) (QC): 9 4 Steps (QC): 9 12 Steps (QC): 9 Balance Sitting Static: Fair Balance Sitting Dynamic: Fair Balance-Standing Static: Fair Picking up an Object (QC): 88 Occupational Therapy Decreased Safety Aware, Decreased UE Strength, Impaired Cognition, Impaired Coordination, Impaired I ADL's, Impaired Self-Care Skills Eating (QC): 4 Oral Hygiene (QC): 7 Shower/Bathe Self (QC): 7 Upper Body Dressing (QC): 7 Lower Body Dressing (QC): 3 (per clinical judgment (for clothing management and balance)) On/Off Footwear (QC): 4 Toileting Hygiene (QC): 7 PT Correction Goals Agricultural Aircraft Pilot Goals PT Correction Goals Time Frame: May 03, 2022 Scoring Section J - Health Conditions 1. Rarely or not at all 2. Occasionally 3. Frequently 4. Almost constantly 8. Unable to answer Roll Left to Right (QC): 4 Sit to Lying (QC): 4 Lying-Sitting on Side/Bed(QC): 4 Sit to Stand (QC): 3 Chair/Efn-rp-Msoew Xfer(QC): 3 Toilet/Commode Transfer (QC): 3 Car Transfer (QC): 3 Does the Patient Walk: No and Walking Goal IS indicated Walk 10 feet (QC): 3 Walk 10ft-Uneven Surface(QC): 3 Walk 50ft with 2 Turns (QC): 3 Walk 150 ft (QC): 3 Gait Assistive Device: FWW Wheel 50 feet with 2 turns (QC: 9 1 Step (curb) (QC): 9 4 Steps (QC): 9 12 Steps (QC): 9 Picking up an Object (QC): 88 OT Agricultural Aircraft Pilot Goals Agricultural Aircraft Pilot Goals Time Frame: May 13, 2022 Eating (QC): 5 Oral Hygiene (QC): 5 Toileting Hygiene (QC): 4 Shower/Bathe Self (QC): 4 Upper Body Dressing (QC): 4 Lower Body Dressing (QC): 4 On/Off Footwear (QC): 5 1=Demonstrate adherence to instructed precautions during ADL tasks. 2=Patient will verbalize/demonstrate understanding of assistive devices/modifications for ADL. 3=Patient will improve strength/tolerance for activity to enable patient to perform ADL's. Speech Correction Goals Correction Goals 1. The patient will display improvement of cognitive linguistic skills for safe discharge to the least restrictive environment. Time Frame: One Week. JOHNATHON LEIGH PT Apr 24, 2022 07:24
[2022-04-24 07:50] VITALS: BP 135/70
--- NOTE | 2022-04-24 08:55 | Discharge Inst-Skilled Nursing ---
Discharge Inst-Skilled NF Consult/Follow Up/Orders Skilled NF Admit to: [facility] [place] Certification (SNF) I certify that SNF services are required to be given on an inpatient basis b ecause of the above named patient's need for half-way care on a continuing basis for the conditions(s) for which he/she was receiving inpatient hospital services prior to his/her transfer to the SNF. Snf Facility Order: Nursing Services, Control Clerk Head-Evaluate & Treat, Physical Therapy-Evaluate & Treat, Speech Language-Evaluate & Treat Oxygen Delivery Method: Room Air Discharge Diet: Soft Diet (Dysphagia 3/Ground meat) Daily Activity as Tolerated: Yes Resuscitation Status: Full Code New & Resume Previous Orders Lakshmi Woodard Apr 23, 2022 10:24 LAKSHMI WOODARD MD Apr 23, 2022 10:25
--- NOTE | 2022-04-24 09:11 | Occ Therapy Progress Note ---
Therapy Progress Note PALACIOS attempted to see pt, pt sleeping in bed. PALACIOS attempted to rouse pt with minimal results. Attempted moving pt in bed and pt did not open eyes just responded with grunts/moans. Continued to talk to pt and pt would mumble an answer but would not open eyes. Per chart, pt to discharge today. Unable to treat pt due to lethargy. RAMYA STEPHEN Apr 24, 2022 09:10
[2022-04-24] MEDS: SINEMET 10/100 (CARBIDOPA/LEVADOPA) TAB PO SCH (09:33)
[2022-04-24] MEDS: DULoxetine 30 MG (CYMBALTA) CAP PO SCH (09:34)
[2022-04-24] MEDS: SENNOSIDES 8.6 MG (SENOKOT) TAB PO SCH (09:40)
[2022-04-24] MEDS: DOCUSATE SODIUM 100 MG (COLACE) CAP PO SCH (09:40)
--- NOTE | 2022-04-24 11:52 | Discharge Summary ---
Diagnosis/Chief Complaint Date of Admission Apr 18, 2022 at 14:38 Date of Discharge Discharge Date: Apr 23, 2022 Primary Care Josh Reyes MD Discharge Summary Discharge Physical Exam Allergies: Coded Allergies: bacitracin (Unverified Allergy, Unknown, HIVES, 09/22/13) lidocaine (Unverified Allergy, Unknown, HIVES, 09/22/13) neomycin (Unverified Allergy, Unknown, HIVES, 09/22/13) polymyxin B (Unverified Allergy, Unknown, HIVES, 09/22/13) pramoxine (Unverified Allergy, Unknown, HIVES, 09/22/13) Vitals & I&Os Vital Signs Date Time Temp Pulse Resp B/P (MAP) Pulse Ox O2 Delivery O2 Flow Rate FiO2 04/24/22 09:01 95 Room Air 0.00 04/24/22 07:50 36.6 78 19 135/70 (91) Hospital Course Labs (last 24 hrs) Patient resulted labs reviewed. Discharge Home Medications: Active Scripts Active Carbidopa-Levodopa 10-100 Tab (Carbidopa/Levodopa) 10 Mg-100 Mg Tablet 1 Ea PO TIDWM Reported Stool Softener (Docusate Sodium) 100 Mg Capsule 100 Mg PO DAILY PRN Duloxetine HCl 60 Mg Capsule.dr 60 Mg PO DAILY Hydrocodone-Acetamin 5-325 mg (Hydrocodone/Acetaminophen) 5 Mg-325 Mg Tablet 1 Each PO QID Alprazolam 0.5 Mg Tablet 0.5 Mg PO BID Instructions to patient/family Please see electronic discharge instructions given to patient. LAKSHMI HENDRIX MD Apr 24, 2022 11:52
[2022-04-24] MEDS ORDERED: DOCU-26 PO (14:00)
[2022-04-24] MEDS ORDERED: ACHD5005 PO (14:00)
[2022-04-24] MEDS ORDERED: ALPR0.5T7 PO (14:00)
[2022-04-24] MEDS ORDERED: DULO60CA59 PO (14:00)
--- NOTE | 2022-04-25 14:13 | Therapy Team Discharge Summary ---
Therapy Discharge Summary Discharge Recommendations Date of Discharge Apr 24, 2022 at 13:35 Therapy D/C Recommendations: Bath Aide, Intermittent Supervision, [facility]pc (TCU/NH) Physical Therapy Roll Left to Right (QC): 3 Sit to Lying (QC): 3 Lying to Sitting/Side of Bed(Q: 3 Sit to Stand (QC): 3 Chair/Eei-wi-Ylbie Xfer(QC): 3 Toilet Transfer (QC): 3 Car Transfer (QC): 3 Does the Patient Walk: Yes Mode of Locomotion: Walk Anticipated Mode of Locomotion: Walk Walk 10 feet (QC): 3 Walk 50 ft with 2 Turns(QC): 3 Walk 150 ft (QC): 3 Walking 10ft on uneven surface: 3 Distance: 200' Gait Assistive Device: FWW Does the Pt Use a Wheelchair: No Wheel 50 ft with 2 turns (QC): 9 Wheel 150 ft (QC): 9 Type of Wheelchair: N/A 1 Step (curb) (QC): 9 4 Steps (QC): 9 12 Steps (QC): 9 Balance Sitting Static: Fair Balance Sitting Dynamic: Fair Balance-Standing Static: Fair Picking up an Object (QC): 88 Occupational Therapy Pt admitted to swing bed status with Covid diagnosis. At time of evaluation she was min a for lower body dressing, sba for footwear and eating. Pt unable or refused to complete all other adls. During her stay, OT attempted to focus treatment on improving strength, balance, and overall cognition in order to improve performance and independence in adls and functional mobility. Poor progress made secondary to poor cognition and pt's refusal to participate. Pt did not meet any of her shelter goals. See below for current levels of assist. Pt has discharged from this facility and will be discharged from OT at this time. Decreased Safety Aware, Decreased UE Strength, Impaired Cognition, Impaired Coordination, Impaired I ADL's, Impaired Self-Care Skills Eating (QC): 4 Oral Hygiene (QC): 7 Shower/Bathe Self (QC): 7 Upper Body Dressing (QC): 7 Lower Body Dressing (QC): 3 (per clinical judgment (for clothing management and balance)) On/Off Footwear (QC): 4 Toileting Hygiene (QC): 7 PT Disc Pad Grinder Goals Disc Pad Grinder Goals PT Disc Pad Grinder Goals Time Frame: May 03, 2022 Scoring Section J - Health Conditions 1. Rarely or not at all 2. Occasionally 3. Frequently 4. Almost constantly 8. Unable to answer Roll Left to Right (QC): 4 Sit to Lying (QC): 4 Lying-Sitting on Side/Bed(QC): 4 Sit to Stand (QC): 3 Chair/Azv-co-Ozbph Xfer(QC): 3 Toilet/Commode Transfer (QC): 3 Car Transfer (QC): 3 Does the Patient Walk: No and Walking Goal IS indicated Walk 10 feet (QC): 3 Walk 10ft-Uneven Surface(QC): 3 Walk 50ft with 2 Turns (QC): 3 Walk 150 ft (QC): 3 Gait Assistive Device: FWW Wheel 50 feet with 2 turns (QC: 9 1 Step (curb) (QC): 9 4 Steps (QC): 9 12 Steps (QC): 9 Picking up an Object (QC): 88 OT Halfway Goals Halfway Goals Time Frame: May 13, 2022 Eating (QC): 5 Oral Hygiene (QC): 5 Toileting Hygiene (QC): 4 Shower/Bathe Self (QC): 4 Upper Body Dressing (QC): 4 Lower Body Dressing (QC): 4 On/Off Footwear (QC): 5 1=Demonstrate adherence to instructed precautions during ADL tasks. 2=Patient will verbalize/demonstrate understanding of assistive devices/modifications for ADL. 3=Patient will improve strength/tolerance for activity to enable patient to perform ADL's. Speech Halfway Goals Disc Pad Grinder Goals 1. The patient will display improvement of cognitive linguistic skills for safe discharge to the least restrictive environment. Time Frame: One Week. Monik Cash OT Apr 25, 2022 14:13
== END 2022-04-24 13:35 | DRG 178 ==
LOC: 4TH 14:38
PROVIDERS: ADMIT Internal Medicine; ATTEND Internal Medicine
DX: U07.1 COVID-19 (principal); M62.82 Rhabdomyolysis; G20 Parkinson's disease; R53.81 Other malaise; F32.A Depression, unspecified; F41.9 Anxiety disorder, unspecified; E87.6 Hypokalemia
CPT/HCPCS: 94760

== ENCOUNTER 2022-04-30 12:37 | Inpatient (IN) | payer MEDICARE, MEDICAID ==
[~2022-04-30] VITALS: Ht 172 cm; Wt 58.4 kg
[~2022-04-30 12:37] MED LIST changes: +CARB1TAB30 PO
[2022-04-30 13:20] VITALS: BP 129/59
[2022-04-30 13:31] LABS: ALBUMIN 3.9 GM/DL (3.2-4.5); CHLORIDE 90 MMOL/L (98-107); POTASSIUM 3.4 MMOL/L (3.6-5.0); SODIUM 130 MMOL/L (135-145)
[2022-04-30 13:32] LABS: CALCIUM 10.4 MG/DL (8.5-10.1)
[2022-04-30 13:33] LABS: GLUCOSE 138 MG/DL (70-105); TOTAL PROTEIN 8.6 GM/DL (6.4-8.2)
[2022-04-30 13:34] LABS: BASOPHILS % (AUTO) 0 % (0-10); CARBON DIOXIDE 28 MMOL/L (21-32); EOSINOPHILS % (AUTO) 0 % (0-10); HEMATOCRIT 38 % (35-52); LYMPHOCYTES # (AUTO) 1.2 10^3/uL (1.0-4.0); LYMPHOCYTES % (AUTO) 5 % (12-44); MEAN CORPUSCULAR HEMOGLOBIN 30 pg (25-34); MEAN CORPUSCULAR HGB CONC 34 g/dL (32-36); MEAN CORPUSCULAR VOLUME 88 fL (80-99); MEAN PLATELET VOLUME 9.8 fL (9.0-12.2); MONOCYTES # (AUTO) 1.8 10^3/uL (0.0-1.0); MONOCYTES % (AUTO) 7 % (0-12); NEUTROPHILS # (AUTO) 21.7 10^3/uL (1.8-7.8); NEUTROPHILS % (AUTO) 87 % (42-75); PLATELET COUNT 472 10^3/uL (130-400)
[2022-04-30 13:35] LABS: BILIRUBIN,TOTAL 1.2 MG/DL (0.1-1.0)
[2022-04-30 13:36] LABS: ALKALINE PHOSPHATASE 123 U/L (40-136)
[2022-04-30 13:37] LABS: CREATININE SERUM 0.74 MG/DL (0.60-1.30); GFR ESTIMATED 82
[2022-04-30 13:38] LABS: BUN/CREATININE RATIO 31
[2022-04-30 13:39] LABS: INR 1.3 (0.8-1.4); PROTHROMBIN TIME PATIENT 16.4 SEC (12.2-14.7)
[2022-04-30 13:40] LABS: ALANINE AMINOTRANSFERASE < 6 U/L (0-55)
--- NOTE | 2022-04-30 13:56 | Diagnostic Imaging Report ---
PROCEDURE: CT head and CT cervical spine without contrast. TECHNIQUE: Multiple contiguous axial images were obtained through the brain and cervical spine without the use of intravenous contrast. Sagittal and coronal reformations through the cervical spine were then performed. Auto Exposure Controls were utilized during the CT exam to meet ALARA standards for radiation dose reduction. INDICATION: Fall, unresponsive, head and neck injuries COMPARISON: 04/13/2022 CT HEAD: Ventricles and sulci remain diffusely prominent with rather extensive low-density throughout the cerebral white matter. There is no evidence of an acute hemorrhage. There is no abnormal mass effect or shift of midline structures. In the interim, there has been development of air-fluid level within the left maxillary sinus with further opacification of bilateral ethmoid and frontal sinuses. No calvarial fracture is identified. IMPRESSION: Stable chronic findings in the brain with worsening paranasal sinus disease and possible mild left otitis media. CT CERVICAL SPINE: Extensive operative findings are again noted in the cervical spine with fusion extending from C3-C7. There is reversal of cervical lordosis without definite acute fracture or subluxation identified. IMPRESSION: Postoperative and degenerative findings in the cervical spine are similar to the previous study without definite acute abnormality identified. There is subpleural densities in the upper lobes of the lungs which are partially included on this study which may represent areas of infiltrate or scarring. Note is again made of thyromegaly. Dictated by: Dictated on workstation # [id number]
[2022-04-30 14:06] LABS: BAND NEUTROPHILS 2 %; EOSINOPHILS % (MANUAL) 1 %; LYMPHOCYTES % (MANUAL) 4 %; MONOCYTES % (MANUAL) 6 %; NEUTROPHILS % (MANUAL) 87 %; RBC MORPH NORMAL
--- NOTE | 2022-04-30 14:13 | Diagnostic Imaging Report ---
CHEST 1 VIEW, AP/PA ONLY Indication: Lethargy Comparison: 04/13/2022 Findings: There is suggestion of new hazy opacities in the left upper lobe. No pleural effusion or pneumothorax. Normal cardiomediastinal silhouette. Impression: 1. Possible new left upper lobe consolidations. Correlation for clinical features of pneumonia is suggested. Dictated by: Dictated on workstation # [id number]
[2022-04-30] MEDS ORDERED: CEFEPIME INJECTION 1,000 MG in NS (IVPB) 50 ML IV ONE (14:15)
[2022-04-30] MEDS ORDERED: NS IV 1000 ML 1,000 ML IV SCH (15:00)
--- NOTE | 2022-04-30 15:08 | ED General ---
General Chief Complaint: Altered Mental Status Stated Complaint: LETHARGY Nursing Triage Note: PT BROUGHT IN BY [facility] FROM THE [facility] WITH COMPLAINT OF ALT MENTAL STATUS. PT WAS TALKING TO STAFF THIS MORNING AND TOOK MORNING MEDS. PT IS NOW NOT RESPONDING TO STAFF. Source of Information: Patient Exam Limitations: No Limitations History of Present Illness Date Seen by Provider: Apr 30, 2022 Time Seen by Provider: 14:32 Initial Comments This is a 81-year-old female who was brought to the ER via [facility] from [facility] for concerns of alteration in mental status. Nursing staff reports that patient was talking, walking, acting her norm. She took her a.m. carbidopa levodopa with no issue. States that when they went to check on her shortly after she had her head bent down eyes closed and would not respond to staff. EMS states that upon arrival her oxygen was in the lower 90s, they attempted to place oxygen via nasal cannula and patient reached up and ripped it off her face. Upon arrival she is sitting upright, head is bent down, she is not verbally interacting with staff. She will intermittently state "shit" and "oh God". She was recently admitted to the hospital on April 13 after a fall at home. She was sent to [facility] on 18 April for rehabilitation. Family at bedside states that over the past 6 months she has had a increased decline in her cognitive status. Allergies and Home Medications Allergies Coded Allergies: bacitracin (Unverified Allergy, Unknown, HIVES, 09/22/13) lidocaine (Unverified Allergy, Unknown, HIVES, 09/22/13) neomycin (Unverified Allergy, Unknown, HIVES, 09/22/13) polymyxin B (Unverified Allergy, Unknown, HIVES, 09/22/13) pramoxine (Unverified Allergy, Unknown, HIVES, 09/22/13) Patient Home Medication List Home Medication List Reviewed: Yes Alprazolam (Alprazolam) 0.5 Mg Tablet, 0.5 MG PO BID PRN for ANXIETY Prescribed by: LASKHMI HENDRIX on 04/24/22 1401 Carbidopa/Levodopa (Carbidopa-Levodopa 10-100 Tab) 10 Mg-100 Mg Tablet, 1 EA PO TIDWM Prescribed by: LAKSHMI HENDRIX on 04/23/22 1028 Docusate Sodium (Stool Softener) 100 Mg Capsule, 100 MG PO DAILY PRN for CONSTIPATION-1ST LINE Prescribed by: LAKSHMI HENDRIX on 04/24/22 1400 Duloxetine HCl (Duloxetine HCl) 60 Mg Capsule.dr, 60 MG PO DAILY Prescribed by: LAKSHMI HENDRIX on 04/24/22 1400 Hydrocodone/Acetaminophen (Hydrocodone-Acetamin 5-325 mg) 5 Mg-325 Mg Tablet, 1 EACH PO QID PRN for PAIN-BREAKTHROUGH Prescribed by: LAKSHMI HENDRIX on 04/24/22 1401 Past Loxtxtv-Fslqvo-Kavdyn Hx Patient Social History Tobacco Use?: No Smoking Status: Unknown if Ever Smoked Smokeless Tobacco Frequency: Unknown if Ever Used Use of E-Cig and/or Vaping dev: Unable to obtain Substance use?: Unable to obtain Alcohol Use?: Unable to obtain Pt feels they are or have been: Unable to obtain Immunizations Up To Date Tetanus Booster (TDap): Less than 5yrs First/Initial COVID19 Vaccinat: 12/2020 Second COVID19 Vaccination Mikey: 12/2020 Third COVID19 Vaccination Date: NO Seasonal Allergies Seasonal Allergies: No Past Medical History Surgery/Hospitalization HX: SPINAL YIFAN, BREAST LUMPECTOMY, HYSTERECTOMY, APPY Surgeries: Yes (BREAST LUMPECTOMY/ YIFAN IN C SPINE) Appendectomy, Breast, Gallbladder, Hysterectomy Respiratory: Yes COPD, Emphysema Cardiac: No Neurological: No Reproductive Disorders: 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 History: Hysterectomy Kidney Stones, UTI-Chronic Gastrointestinal: No Musculoskeletal: Yes (ARTHRITIS, CERVICAL STENOSIS) Arthritis, Fibromyalgia Endocrine: No Cataract Hearing Impairment: Hard of Hearing Cancer: No Psychosocial: Yes Anxiety Integumentary: No Blood Disorders: No Adverse Reaction/Blood Tranf: No Family Medical History Cancer 03 FATHER 03 MOTHER 09 BROTHER 09 SISTER Cancer of colon 09 SISTER Congenital heart disease 09 BROTHER Family history: Arthritis 03 FATHER 03 MOTHER 09 BROTHER 09 SISTER Family history: Asthma 09 SISTER Family history: Diabetes mellitus 09 BROTHER Family history: Gastrointestinal disease 03 FATHER 09 BROTHER Family history: Hypertension 03 MOTHER 09 BROTHER Heart disease 03 MOTHER 09 BROTHER History of - respiratory disease 03 FATHER 03 MOTHER 09 BROTHER Myocardial infarction 03 MOTHER Prostate cancer 03 FATHER 09 BROTHER Stroke 03 MOTHER No Family History of: Abdominal aortic aneurysm Alcoholism Congestive heart failure Dementia Family history: Allergy Family history: Alzheimer's disease Family history: Breast disease Family history: Cardiovascular disease Family history: Thyroid disorder History of - anemia Kidney disease Parkinson's disease Seizure disorder Cancer Physical Exam-Suspected Sepsis Physical Exam Vital Signs Vital Signs - First Documented 04/30/22 04/30/22 04/30/22 12:39 13:20 18:00 Temp 37.0 Pulse 107 Resp 22 B/P (MAP) 133/71 (91) Pulse Ox 92 O2 Delivery Room Air FiO2 21 Capillary Refill : Less Than 3 Seconds Blood Pressure Mean: 91 Height, Weight, BMI Height: 5'4.00" Weight: 125lbs. oz. [id number]; 22.00 BMI Method:Stated Focused Exam Lactate Level 04/30/22 12:50: Lactic Acid Level 1.41 Lactic Acid Level Progress/Results/Core Measures Suspected Sepsis SIRS Temperature: Pulse: 107 Respiratory Rate: 22 Laboratory Tests 04/30/22 12:30: White Blood Count 25.0H Blood Pressure 133 /71 Mean: 91 04/30/22 12:50: Lactic Acid Level 1.41 Laboratory Tests 04/30/22 12:30: Creatinine 0.74, INR Comment 1.3, Platelet Count 472H, Total Bilirubin 1.2H Results/Orders Lab Results Laboratory Tests Test 04/30/22 12:30 04/30/22 12:50 04/30/22 16:55 04/30/22 20:00 Range/Units White Blood Count 25.0 H 4.3-11.0 10^3/uL Red Blood Count 4.35 3.80-5.11 10^6/uL Hemoglobin 13.0 11.5-16.0 g/dL Hematocrit 38 35-52 % Mean Corpuscular Volume 88 80-99 fL Mean Corpuscular Hemoglobin 30 25-34 pg Mean Corpuscular Hemoglobin Concent 34 32-36 g/dL Red Cell Distribution Width 12.4 10.0-14.5 % Platelet Count 472 H 130-400 10^3/uL Mean Platelet Volume 9.8 9.0-12.2 fL Immature Granulocyte % (Auto) 1 % Neutrophils (%) (Auto) 87 H 42-75 % Lymphocytes (%) (Auto) 5 L 12-44 % Monocytes (%) (Auto) 7 0-12 % Eosinophils (%) (Auto) 0 0-10 % Basophils (%) (Auto) 0 0-10 % Neutrophils # (Auto) 21.7 H 1.8-7.8 10^3/uL Lymphocytes # (Auto) 1.2 1.0-4.0 10^3/uL Monocytes # (Auto) 1.8 H 0.0-1.0 10^3/uL Eosinophils # (Auto) 0.0 0.0-0.3 10^3/uL Basophils # (Auto) 0.0 0.0-0.1 10^3/uL Immature Granulocyte # (Auto) 0.2 H 0.0-0.1 10^3/uL Neutrophils % (Manual) 87 % Lymphocytes % (Manual) 4 % Monocytes % (Manual) 6 % Eosinophils % (Manual) 1 % Band Neutrophils 2 % Blood Morphology Comment NORMAL Prothrombin Time 16.4 H 12.2-14.7 SEC INR Comment 1.3 0.8-1.4 Activated Partial Thromboplast Time 37 H 24-35 SEC Sodium Level 130 L 135-145 MMOL/L Potassium Level 3.4 L 3.6-5.0 MMOL/L Chloride Level 90 L 98-107 MMOL/L Carbon Dioxide Level 28 21-32 MMOL/L Anion Gap 12 5-14 MMOL/L Blood Urea Nitrogen 23 H 7-18 MG/DL Creatinine 0.74 0.60-1.30 MG/DL Estimat Glomerular Filtration Rate 82 BUN/Creatinine Ratio 31 Glucose Level 138 H 70-105 MG/DL Calcium Level 10.4 H 8.5-10.1 MG/DL Corrected Calcium 10.5 H 8.5-10.1 MG/DL Total Bilirubin 1.2 H 0.1-1.0 MG/DL Aspartate Amino Transf (AST/SGOT) 15 5-34 U/L Alanine Aminotransferase (ALT/SGPT) < 6 0-55 U/L Alkaline Phosphatase 123 40-136 U/L Troponin I < 0.028 <0.028 NG/ML Total Protein 8.6 H 6.4-8.2 GM/DL Albumin 3.9 3.2-4.5 GM/DL Procalcitonin 1.47 H <0.10 NG/ML Lactic Acid Level 1.41 0.50-2.00 MMOL/L Urine Color YELLOW Urine Clarity TURBID Urine pH 6.0 5-9 Urine Specific [place] >=1.030 1.016-1.022 Urine Protein 2+ H NEGATIVE Urine Glucose (UA) NEGATIVE NEGATIVE Urine Ketones TRACE H NEGATIVE Urine Nitrite POSITIVE H NEGATIVE Urine Bilirubin NEGATIVE NEGATIVE Urine Urobilinogen 1.0 < = 1.0 MG/DL Urine Leukocyte Esterase 1+ H NEGATIVE Urine RBC (Auto) 1+ H NEGATIVE Urine RBC 25-50 H /HPF Urine WBC TNTC H /HPF Urine Squamous Epithelial Cells 10-25 H /HPF Urine Crystals NONE /LPF Urine Bacteria LARGE H /HPF Urine Casts NONE /LPF Urine Mucus NEGATIVE /LPF Urine Culture Indicated CULTURE PENDING Blood Gas Puncture Site R RADIAL Blood Gas Patient Temperature 37.6 Arterial Blood pH 7.49 H 7.37-7.43 Arterial Blood Partial Pressure CO2 49 H 35-45 MMHG Arterial Blood Partial Pressure O2 141 H 79-93 MMHG Arterial Blood HCO3 37 H 23-27 MMOL/L Arterial Blood Total CO2 38.0 H 21.0-31.0 MMOL/L Arterial Blood Oxygen Saturation 100 94-100 % Arterial Blood Base Excess 12.4 H -2.5-2.5 MMOL/L Adolfo Test NA Blood Gas Ventilator Setting NO Blood Gas Inspired Oxygen ROOM AIR My Orders Orders - RADHA ROBIN COIL BUILDER Cbc With Automated Diff (04/30/22 12:51) Comprehensive Metabolic Panel (04/30/22 12:51) Blood Culture (04/30/22 12:51) Sputum Culture (04/30/22 12:51) Urinalysis (04/30/22 12:51) Urine Culture (04/30/22 12:51) Protime With Inr (04/30/22 12:51) Partial Thromboplastin Time (04/30/22 12:51) Chest 1 View, Ap/Pa Only (04/30/22 12:51) Ed Iv/Invasive Line Start (04/30/22 12:51) Ekg Tracing (04/30/22 12:51) Troponin I Sarah Beth (04/30/22 12:51) Vital Signs Adult Sepsis Patie Q15M (04/30/22 12:51) O2 (04/30/22 12:51) Remove Rings In Anticipation O (04/30/22 12:51) Lactic Acid Analyzer (04/30/22 12:51) Ct Head/Cervical Spine Wo (04/30/22 12:51) Manual Differential (04/30/22 12:30) Cefepime Injection (Maxipime Injection) (04/30/22 14:15) Procalcitonin (Pct) (04/30/22 14:04) Ns Iv 1000 Ml (Sodium Chloride 0.9%) (04/30/22 15:00) Ed Admission (Communication) (04/30/22 15:51) Medications Given in ED Current Medications Medications Dose Ordered Sig/Marga Route Start Time Stop Time Status Last Admin Dose Admin Cefepime HCl 1000 mg/Sodium Chloride 50 ml @ 100 mls/hr ONCE ONCE IV 04/30/22 14:15 04/30/22 14:44 DC 04/30/22 14:54 100 MLS/HR Vital Signs/I&O 04/30/22 04/30/22 04/30/22 04/30/22 12:39 13:20 15:39 16:27 Temp 37.0 37.5 37.1 Pulse 107 107 107 Resp 18 18 B/P (MAP) 133/71 (91) 129/59 (82) 127/55 (79) Pulse Ox 92 98 95 O2 Delivery Room Air Room Air Room Air 04/30/22 04/30/22 04/30/22 04/30/22 16:27 16:30 16:33 16:45 Temp 37.0 37.0 Pulse 107 105 103 98 Resp 18 20 B/P (MAP) 129/59 (82) 123/58 (79) 129/71 Pulse Ox 98 93 95 O2 Delivery Room Air Room Air Room Air 04/30/22 04/30/22 04/30/22 04/30/22 16:45 17:00 17:00 17:15 Pulse 106 105 103 Resp 11 B/P (MAP) 131/66 (87) 138/61 (86) 129/59 (82) Pulse Ox 93 98 91 92 O2 Delivery Room Air Room Air Room Air Room Air 04/30/22 04/30/22 04/30/22 04/30/22 17:30 17:45 18:00 18:00 Pulse 98 98 101 107 Resp B/P (MAP) 127/59 (81) 121/57 (78) 127/58 (81) Pulse Ox 92 92 91 92 O2 Delivery Room Air Room Air Room Air FiO2 21 04/30/22 04/30/22 04/30/22 04/30/22 18:15 19:00 19:00 19:46 Temp 37.6 Pulse 101 105 105 Resp 23 21 B/P (MAP) 122/64 (83) 120/62 (81) Pulse Ox 92 92 O2 Delivery Room Air Room Air Room Air 04/30/22 04/30/22 04/30/22 20:00 20:15 20:23 Pulse 109 Resp 21 B/P (MAP) 133/65 (87) Pulse Ox 91 92 91 O2 Delivery Room Air Room Air Room Air Capillary Refill : Less Than 3 Seconds Blood Pressure Mean: 91 Departure Communication (Admissions) Time/Spoke to Admitting Phy: 15:35 Dr. Snyder Impression Primary Impression: Sepsis due to pneumonia Disposition: ADMITTED INPATIENT Condition: Stable Departure-Patient Inst. Referrals: GUILLERMINA BOOTH MD (PCP/Family) Primary Care Physician RADHA ROBIN COIL BUILDER Apr 30, 2022 15:08
[2022-04-30 16:27] VITALS: BP 129/59
[2022-04-30] MEDS ORDERED: ONDANSETRON 4 MG (ZOFRAN) ORAL DISSOLVE TAB PO PRN (16:30)
[2022-04-30] MEDS ORDERED: MILK OF MAGNESIA 400 MG/5 ML 30 ML UDC PO PRN (16:30)
[2022-04-30] MEDS ORDERED: ACETAMINOPHEN 325 MG TABLET PO PRN (16:30)
[2022-04-30] MEDS ORDERED: ONDANSETRON 4 MG/2 ML (SDV) Z0FRAN IV PRN (16:30)
[2022-04-30] MEDS ORDERED: polyethylene glycoL POWDER 17 GM (MIRALAX) PACK PO PRN (16:30)
[2022-04-30] MEDS ORDERED: CALCIUM CARBONATE 500 MG (TUMS) TAB.CHEW PO PRN (16:30)
[2022-04-30] MEDS ORDERED: MELATONIN 3 MG TABLET PO PRN (16:30)
[2022-04-30] MEDS ORDERED: BISACODYL 10 MG SUPP (DULCOLAX) PR PRN (16:30)
[2022-04-30] MEDS ORDERED: NS IV 500 ML 500 ML IV PRN (16:30)
[2022-04-30] MEDS ORDERED: ANTACID SUSP 30 ML UDC (MYLANTA) PO PRN (16:30)
[2022-04-30] MEDS ORDERED: PIPERACILLIN SODIUM/TAZOBACTAM 4.5 GM in NS (IVPB) 100 ML IV NR (16:45)
[2022-04-30] MEDS: LACTATED RINGERS 1,000 ML IV SCH (17:03)
[2022-04-30] MEDS: ENOXAPARIN 40 MG/0.4 ML (LOVENOX) SYR SC SCH (17:03)
[2022-04-30 17:08] LABS: BILIRUBIN,URINE NEGATIVE (NEGATIVE); CLARITY,URINE TURBID; COLOR,URINE YELLOW; GLUCOSE, URINE (UA) NEGATIVE (NEGATIVE); KETONES,URINE TRACE (NEGATIVE); LEUKOCYTE ESTERASE ,URINE 1+ (NEGATIVE); NITRITE,URINE POSITIVE (NEGATIVE); PROTEIN,URINE 2+ (NEGATIVE)
[2022-04-30 17:21] LABS: BACTERIA,URINE LARGE /HPF; RBC,URINE 25-50 /HPF; WBC,URINE TNTC /HPF
[2022-04-30 18:00] VITALS: BP 133/71
--- NOTE | 2022-04-30 19:46 | Tele-ICU Progress Note ---
Progress Note 81F with Parkinson's presented from [place] with AMS, reported to be unresponsive. Last seen normal taking her morning medication without difficulty. Found to have a small pneumonia and probable UTI. Baseline mentation unknown, but sounds like she is interactive and functional. Now very lethargic, barely answering questions, disoriented. - sepsis: secondary to urinary source, small pneumonia. Cultures pending. Broad spectrum abx initiated. - AMS: possible septic encephalopathy or hypoactive delirium, however seems out of proportion to underlying sepsis. CT head negative. Glucose 138. Will check ABG to ensure there is no CO2 retention. Monitor closely. Focused Exam Lactate Level 04/30/22 12:50: Lactic Acid Level 1.41 Height, Weight, BMI Height: 5'4.00" Weight: 125lbs. oz. 56.663469ng; 19.60 BMI Method:Stated SKYLER ALLEN MD Apr 30, 2022 19:46
[2022-04-30 20:09] LABS: ABG BASE EXCESS 12.4 MMOL/L (-2.5-2.5); ABG OXYGEN SATURATION 100 % (94-100); ABG PCO2 49 MMHG (35-45); ABG PH 7.49 (7.37-7.43); ABG PO2 141 MMHG (79-93)
[2022-04-30] MEDS: DOCUSATE SODIUM 100 MG (COLACE) CAP PO SCH (20:09)
[2022-04-30] MEDS: SENNOSIDES 8.6 MG (SENOKOT) TAB PO SCH (20:09)
[2022-04-30] MEDS: SINEMET 10/100 (CARBIDOPA/LEVADOPA) TAB PO SCH (20:09)
[2022-04-30] MEDS: POTASSIUM CL 10MEQ/50ML IVPB 50 ML IV SCH ×2 (20:09→20:10)
[2022-04-30 20:12] LABS: INSPIRED O2 ROOM AIR; PATIENT TEMP 37.6; VENTILATOR NO
[2022-04-30] MEDS: RT-ALBUTEROL/IPRATROPIUM 3 ML (DUONEB) VIAL INH SCH (20:23)
[2022-04-30] MEDS: PIPERACILLIN SODIUM/TAZOBACTAM 4.5 GM in NS (IVPB) 100 ML IV SCH (22:18)
[2022-05-01] MEDS: LACTATED RINGERS 1,000 ML IV SCH ×3 (03:22→22:26)
[2022-05-01 05:08] LABS: BASOPHILS # (AUTO) 0.1 10^3/uL (0.0-0.1); BASOPHILS % (AUTO) 0 % (0-10); EOSINOPHILS % (AUTO) 0 % (0-10); HEMATOCRIT 30 % (35-52); HEMOGLOBIN 9.9 g/dL (11.5-16.0); LYMPHOCYTES # (AUTO) 1.6 10^3/uL (1.0-4.0); LYMPHOCYTES % (AUTO) 9 % (12-44); MEAN CORPUSCULAR HEMOGLOBIN 30 pg (25-34); MEAN CORPUSCULAR HGB CONC 34 g/dL (32-36); MEAN CORPUSCULAR VOLUME 88 fL (80-99); MEAN PLATELET VOLUME 9.3 fL (9.0-12.2); MONOCYTES # (AUTO) 1.5 10^3/uL (0.0-1.0); MONOCYTES % (AUTO) 8 % (0-12); NEUTROPHILS # (AUTO) 15.1 10^3/uL (1.8-7.8); NEUTROPHILS % (AUTO) 82 % (42-75); PLATELET COUNT 355 10^3/uL (130-400); WHITE BLOOD COUNT 18.5 10^3/uL (4.3-11.0)
[2022-05-01 05:17] LABS: POTASSIUM 3.3 MMOL/L (3.6-5.0)
[2022-05-01 05:19] LABS: CALCIUM 9.1 MG/DL (8.5-10.1)
[2022-05-01 05:23] LABS: CREATININE SERUM 0.6 MG/DL (0.60-1.30)
[2022-05-01 05:25] LABS: MAGNESIUM 2.1 MG/DL (1.6-2.4)
[2022-05-01] MEDS: POTASSIUM CL 10MEQ/50ML IVPB 50 ML IV SCH ×3 (05:48→07:53)
[2022-05-01] MEDS: PIPERACILLIN SODIUM/TAZOBACTAM 4.5 GM in NS (IVPB) 100 ML IV SCH ×3 (05:48→22:27)
[2022-05-01] MEDS ORDERED: MAGNESIUM 1 GM/100 ML IVPB 100 ML IV SCH (06:00)
[2022-05-01] MEDS ORDERED: KCL 20 MEQ TAB (K-DUR) PO SCH (06:00)
[2022-05-01] MEDS ORDERED: POTASSIUM CL 10MEQ/50ML IVPB 50 ML IV SCH (06:00)
[2022-05-01] MEDS: DOCUSATE SODIUM 100 MG (COLACE) CAP PO SCH ×2 (08:29→19:35)
[2022-05-01] MEDS: SINEMET 10/100 (CARBIDOPA/LEVADOPA) TAB PO SCH ×4 (08:29→17:49)
[2022-05-01] MEDS: SENNOSIDES 8.6 MG (SENOKOT) TAB PO SCH ×2 (08:29→19:35)
--- NOTE | 2022-05-01 08:38 | Occupational Therapy Eval ---
OT Evaluation-General/PLF Medical Diagnosis Admission Date Apr 30, 2022 at 15:53 Medical Diagnosis: AMS, sepsis Onset Date: Apr 30, 2022 Therapy Diagnosis Therapy Diagnosis: Reduced ADL status Height/Weight Height (Feet): 5 Height (Inches): 4.00 Weight (Pounds): 125 Precautions Precautions/Isolations: Aspiration, Fall Prevention, Standard Precautions, Pressure Ulcer Referral Physician: Ingrid Referral Reason: Evaluation/Treatment Medical History Pertinent Medical History: Arthritis, COPD, Parkinson's Current History Pt came to ER with AMS and non-responsive. Pt was unable to answer any questions this morning for the evaluation, so per chart review she was living at [facility]. Pt was very lethargic and took a long time to wake up/open her eyes. Reviewed History: Yes Social History Home: Skilled Nursing Entry Into [facility]: [facility] ADL-Prior Level of Function SCALE: Activities may be completed with or without assistive devices. 4-Csmqaenncu-obrwakl completes the activity by him/herself with no assistance from a helper. 5-Set-up or Clean-up Assistance-helper sets up or cleans up; patient completes activity. [place] assists only prior to or following the activity. 4-Supervision or Touching Assistance-helper provides verbal cues and/or touching/steadying and/or contact guard assistance as patient completes activity . Assistance may be provided throughout the activity or intermittently. 3-Partial/Moderate Assistance-helper does LESS THAN HALF the effort. [place] lifts, holds or supports trunk or limbs, but provides less than half the effort. 2-Substantial/Maximal Assistance-helper does MORE THAN HALF the effort. [place] lifts or holds trunk or limbs and provides more than half the effort. 2-Aczyrauwp-vpvcdm does ALL the effort. Patient does none of the effort to complete the activity. Or, the assistance of 2 or more helpers is required for the patient to complete the activity. If activity was not attempted, code reason: 7-Patient Refused. 9-Not Applicable-not attempted and the patient did not perform the activity before the current illness, exacerbation or injury. 10-Not Attempted due to Environmental Limitations-(lack of equipment, weather restraints, etc.). 88-Not Attempted due to Medical Conditions or Safety Concerns. Self Care: Unknown Functional Cognition: Unknown OT Current Status Subjective Pt laying in bed upon arrival. She was lethargic and took a long time to arouse. Appearance Pt was left sitting in recliner with chair alarm in place. All needs within reach. Mental Status/Objective Patient Orientation: Confused, Place Attachments: Diaz Catheter, IV, Telemetry Current Dentures/Partials: Yes Hand Dominance: Right Upper Extremity ROM ~45 degrees AROM at shoulders ~160 degrees PROM at shoulders ADL-Treatment Lower Body Dressing (QC): 1 (per clinical judgement-due to AMS) On/Off Footwear (QC): 1 (per clinical judgement-due to AMS) Pt unable to follow simple 1 step commands. Pt was mod-max assist for supine<>sit. Total assist for stand pivot transfer bed>chair. No ADLs were attempted at this time, due AMS, fall risk, and lethargic appearance. Other Treatments Pt attempted to perform leg kick exercises with max verbal and tactile cues, but was only able to perform 5 due to AMS. Education OT Patient Education: Correct positioning, Exercise program, Reviewed precautions, Rehab process, Safety issues Teaching Recipient: Patient Teaching Methods: Discussion Response to Teaching: Unable to Return Demonstration, Reinforcement Needed OT Nursing Home Goals Nursing Home Goals Time Frame: May 23, 2022 Eating (QC): 4 Oral Hygiene (QC): 4 Toileting Hygiene (QC): 3 Shower/Bathe Self (QC): 3 Upper Body Dressing (QC): 4 Lower Body Dressing (QC): 3 On/Off Footwear (QC): 3 Additional Goals: 1-Demonstrate ADL Tasks, 2-Verbalize Understanding, 3- ImproveStrength/Kiet 1=Demonstrate adherence to instructed precautions during ADL tasks. 2=Patient will verbalize/demonstrate understanding of assistive devices/modifications for ADL. 3=Patient will improve strength/tolerance for activity to enable patient to perform ADL's. OT Education/Plan Problem List/Assessment Assessment: Decreased Activ Tolerance, Decreased Safety Aware, Decreased UE Strength, Dependent Transfers, Impaired Bed Mobility, Impaired Cognition, Impaired Coordination, Impaired Funct Balance, Impaired I ADL's, Impaired Self- Care Skills, Restricted Funct UE ROM Discharge Recommendations Plan/Recommendations: Continue POC Therapy Discharge Recommendati: Intermittent Supervision, Scheduled Assistance, Assisted Living, Bath Aide Treatment Plan/Plan of Care Treatment,Training & Education: Yes Patient would benefit from OT for education, treatment and training to promote independence in ADL's, mobility, safety and/or upper extremity function for ADL's. Plan of Care: ADL Retraining, Cognitive Retraining, Functional Mobility, Group Exercise/Act as Ind, UE Funct Exercise/Act Treatment Duration: May 23, 2022 Frequency: 3 times per week (3-5 x/week) Estimated Hrs Per Day: .25 hour per day Agreement: Yes Rehab Potential: Guarded Time/GCodes Start Time: 08:04 Stop Time: 08:18 Total Time Billed (hr/min): 14 Billed Treatment Time 1 visit Monik Whitt OT May 01, 2022 08:37
--- NOTE | 2022-05-01 08:41 | Physical Therapy Evaluation ---
PT Evaluation-General Medical Diagnosis Admission Date Apr 30, 2022 at 15:53 Medical Diagnosis: AMS, sepsis Onset Date: Apr 30, 2022 Therapy Diagnosis Therapy Diagnosis: impaired mobility Height/Weight Height (Feet): 5 Height (Inches): 4.00 Weight (Pounds): 125 Precautions Precautions/Isolations: Aspiration, Fall Prevention, Standard Precautions, Pressure Ulcer Weight Bear Status Right Lower Extremity: Right Weight Bearing/Tolerated Left Lower Extremity: Left Weight Bearing/Tolerated Referral Physician: Claudio Reason for Referral: Evaluation/Treatment Medical History Pertinent Medical History: Arthritis, COPD Additional Medical History Past Medical History Surgery/Hospitalization HX: SPINAL YIFAN, BREAST LUMPECTOMY, HYSTERECTOMY, APPY Surgeries: Yes (BREAST LUMPECTOMY/ YIFAN IN C SPINE) Appendectomy, Breast, Gallbladder, Hysterectomy Respiratory: Yes COPD, Emphysema Cardiac: No Neurological: No Reproductive Disorders: No 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 3-Dtdbuxcbyg-soxpsxo completes the activity by him/herself with no assistance from a helper. 5-Set-up or Clean-up Assistance-helper sets up or cleans up; patient completes activity. [place] assists only prior to or following the activity. 4-Supervision or Touching Assistance-helper provides verbal cues and/or touching/steadying and/or contact guard assistance as patient completes activity. Assistance may be provided throughout the activity or intermittently. 3-Partial/Moderate Assistance-helper does LESS THAN HALF the effort. [place] lift s, holds or supports trunk or limbs, but provides less than half the effort. 2-Substantial/Maximal Assistance-helper does MORE THAN HALF the effort. [place] lifts or holds trunk or limbs and provides more than half the effort. 9-Dlatlbyms-rtzasb does ALL the effort. Patient does none of the effort to complete the activity. Or, the assistance of 2 or more helpers is required for the patient to complete the activity. If activity was not attempted, code reason: 7-Patient Refused. 9-Not Applicable-not attempted and the patient did not perform the activity before the current illness, exacerbation or injury. 10-Not Attempted due to Environmental Limitations-(lack of equipment, weather restraints, etc.). 88-Not Attempted due to Medical Conditions or Safety Concerns. unknown, patient can speak but doesn't answer questions correctly PT Evaluation-Current Subjective Patient in bed pre tx, agrees to PT, has no complaints of pain. Pt/Family Goals none stated Objective Patient Orientation: Person, Confused Attachments: Diaz Catheter, IV ROM/Strength ROM Lower Extremities WNL Strength Lower Extremities NT, patient couldn't follow directions Sensory Hearing: Impaired Transfers Roll Left to Right (QC): 1 Lying to Sitting/Side of Bed(Q: 1 Sit to Stand (QC): 2 Chair/Qbg-px-Bawlu Xfer(QC): 2 Patient needs assist of 2 for supine to sit, max assist to scoot forward and stand and perform stand pivot transfer to recliner. Patient was able to assist some after she was standing. Balance Sitting Static: Poor Sitting Dynamic: Poor Standing Static: Poor Standing Dynamic: Poor Treatment BLE exercises x15 (AP, LAQ) Assessment/Needs Patient in recliner post tx with nurse call, phone, tray, chair alarm on. Patient has impaired mobility. Needs a lot of assist for mobility but better participation compared to her last inpatient admission. Rehab Potential: Fair PT Custodial Goals Custodial Goals PT Supervisory Forester Goals Time Frame: May 08, 2022 Roll Left & Right (QC): 3 Sit to Lying (QC): 3 Lying-Sitting on Side/Bed(QC): 3 Sit to Stand (QC): 3 Chair/Bcx-dn-Oglwl Xfer(QC): 3 Walk 10 feet (QC): 3 PT Plan Problem List Problem List: Activity Tolerance, Functional Strength, Safety, Balance, Gait, Transfer, Bed Mobility, ROM Treatment/Plan Treatment Plan: Continue Plan of Care Treatment Plan: Bed Mobility, Education, Functional Activity Kiet, Functional Strength, Gait, Safety, Therapeutic Exercise, Transfers Treatment Duration: May 08, 2022 Frequency: 6 times per week Estimated Hrs Per Day: .25 hour per day Patient and/or Family Agrees t: Yes Safety Risks/Education Patient Education: Transfer Techniques, Correct Positioning, Safety Issues Teaching Recipient: Patient Teaching Methods: Demonstration, Discussion Response to Teaching: Reinforcement Needed Discharge Recommendations Plan Patient will perform bed mobility and transfer training, balance and endurance training, functional strengthening, gait training, and education, to improve functional mobility and independence at home. Therapy Discharge Recommendati: Other, See Comments (NH) Time Time In: 804 Time Out: 815 Total Billed Treatment Time: 11 Total Billed Treatment 1 visit FA 11' DONNELL GARSIA PT May 01, 2022 08:40
[2022-05-01] MEDS: RT-ALBUTEROL/IPRATROPIUM 3 ML (DUONEB) VIAL INH SCH ×2 (09:32→21:12)
[2022-05-01 09:40] LABS: CALCIUM 9.1 MG/DL (8.5-10.1)
[2022-05-01 09:52] LABS: ALBUMIN 2.9 GM/DL (3.2-4.5); TOTAL PROTEIN 6.6 GM/DL (6.4-8.2)
--- NOTE | 2022-05-01 09:54 | Tele-ICU Progress Note ---
Subjective Date Seen by a Provider: May 01, 2022 Time Seen by a Provider: 09:52 Subjective/Events-last exam (Tele-ICU Physician , Progress Note ) Service provided via interactive audio and video telecommunications E-CARE system to a patient admitted to ICU bed in [facility]. Available chart/ vitals / labs / Images reviewed Video assessment done using teleICU camera, rest of exam as per RN Discussed with RN Events overnight : Afebrile hemodynamically stable Respiratory - I/O = Drips: Pressors- no Consultants: Hospital course: Patient is seen today due to persistent confusion and new Consultants: Hospital course: A/P Fall, unresponsive on presentation to ER - ct neck and head - no acute abnornalities - 04/21 still confused , lethargic, barely answering questions, disoriented- ? TME , possible septic encephalopathy or hypoactive delirium -newly diagnosed with Parkinson's dementia- on Sinemet - will check Ca and TSH newly diagnosed with Parkinson's dementia - on Sinemet UTI ,sepsis: - Cultures pending. Broad spectrum abx initiated. - AMS: possible septic encephalopathy or hypoactive delirium, however seems out of proportion to underlying sepsis. CT head negative. Glucose 138. Will check ABG to ensure there is no CO2 retention. Monitor closely. Possible PNA - my review of CT chest ct earlier this month - changes are chronic - ? additional resp symptoms reported ? Anemia - no active bleeding , follow Hyponatremia 130 - chronic will need to assess nutrition given letyhargy - no Po intake currently Lines : periph , (Central Line Necessity Reviewed) Diaz: + OG: Nutrition: Analgesia: Anxiety/ delirium VTE Prophylaxis: Stress Ulcer Prophylaxis: Plans in collaboration with bedside consultants and IM MDs. Discussed with RN to reach out if any questions or concerns A total of 20 minutes of critical care time was devoted to this patient today, required to treat and/or prevent further deterioration of critical care condit ion ( as above ) . I am remotely monitoring this patient from another state. I am unable to do the bedside exam, and history/physical and pertinent information is taken from other notes in the computer and bedside staff. Sepsis Event Evaluation Height, Weight, BMI Height: 5'4.00" Weight: 125lbs. oz. 56.582326ga; 19.63 BMI Method:Stated Focused Exam Lactate Level 10/26/22 12:50: Lactic Acid Level 1.41 Exam Exam Patient acknowledged, consented, and participated in this virtual visit which was conducted using real time audio/video Vital Signs Date Time Temp Pulse Resp B/P (MAP) Pulse Ox O2 Delivery O2 Flow Rate FiO2 05/01/22 09:32 94 Room Air 05/01/22 09:00 76 19 108/57 (74) 93 Room Air 05/01/22 08:00 81 20 113/61 (78) 92 Room Air 05/01/22 07:24 37.0 05/01/22 07:00 81 05/01/22 07:00 80 22 130/60 (83) 94 Room Air 05/01/22 06:00 80 19 134/55 (81) 93 Room Air 05/01/22 05:00 92 14 122/65 (84) 95 Room Air 05/01/22 04:21 92 Room Air 05/01/22 04:00 86 30 125/59 (81) 93 Room Air 05/01/22 03:07 37.2 Room Air 05/01/22 03:00 84 18 112/54 (73) 94 Room Air 05/01/22 02:00 83 19 126/52 (76) 93 Room Air 05/01/22 01:00 90 05/01/22 01:00 90 27 118/74 (89) 93 Room Air 05/01/22 00:00 94 Room Air 05/01/22 00:00 100 15 115/59 (77) 91 Room Air 04/30/22 23:30 37.6 Room Air 04/30/22 23:00 99 26 121/61 (81) 90 Room Air 04/30/22 22:00 105 18 120/61 (80) 92 Room Air 04/30/22 21:00 109 17 128/60 (82) 92 Room Air 04/30/22 20:23 91 Room Air 04/30/22 20:15 92 Room Air 04/30/22 20:00 109 21 133/65 (87) 91 Room Air 04/30/22 19:46 37.6 Room Air 04/30/22 19:00 105 04/30/22 19:00 105 21 120/62 (81) 92 Room Air 04/30/22 18:15 101 23 122/64 (83) 92 Room Air 04/30/22 18:00 107 92 21 04/30/22 18:00 101 26 127/58 (81) 91 Room Air 04/30/22 17:45 98 21 121/57 (78) 92 Room Air 04/30/22 17:30 98 22 127/59 (81) 92 Room Air 04/30/22 17:15 103 11 129/59 (82) 92 Room Air 04/30/22 17:00 105 24 138/61 (86) 91 Room Air 04/30/22 17:00 98 Room Air 04/30/22 16:45 106 22 131/66 (87) 93 Room Air 04/30/22 16:45 37.0 98 20 129/71 95 Room Air 04/30/22 16:33 103 04/30/22 16:30 105 123/58 (79) 93 Room Air 04/30/22 16:27 37.0 107 18 129/59 (82) 98 Room Air 04/30/22 16:27 37.1 04/30/22 15:39 37.5 107 18 127/55 (79) 95 Room Air 04/30/22 13:20 37.0 107 18 129/59 (82) 98 Room Air 04/30/22 12:39 107 22 133/71 (91) 92 Room Air I & O 05/01/22 07:00 Intake Total 2350 ml Output Total 1100 ml Balance 1250 ml Height & Weight Height: 5'4.00" Weight: 125lbs. oz. 56.506261tk; 19.63 BMI Method:Stated General Appearance: No Apparent Distress Capillary Refill: Less Than 3 Seconds Results Lab Laboratory Tests 04/30/22 12:30 05/01/22 04:40 Assessment/Plan Assessment/Plan 1 CHARLES PHIPPS MD May 01, 2022 09:54
[2022-05-01] MEDS ORDERED: ACHD5005 PO (10:27)
[2022-05-01] MEDS ORDERED: CARB1TAB30 PO (10:27)
[2022-05-01] MEDS ORDERED: DULO60CA59 PO (10:27)
[2022-05-01] MEDS ORDERED: POLY17PO6 PO (10:27)
[2022-05-01] MEDS ORDERED: DOCU100C37 PO (10:27)
[2022-05-01] MEDS ORDERED: ALPR0.5T7 PO (10:27)
[2022-05-01] MEDS ORDERED: ACET325T38 PO (10:27)
[2022-05-01] MEDS: ENOXAPARIN 40 MG/0.4 ML (LOVENOX) SYR SC SCH (13:19)
--- NOTE | 2022-05-01 14:27 | History & Physical-Hospitalist ---
History of Present Illness HPI/Chief Complaint Leti Moran is a 81 year old female with PMH Parkinson's disease, dementia, depression, anxiety, who presented with altered mental status. She is a poor historian. She was recently admitted with COVID and recurrent falls. She was discharged to [facility] for ongoing skilled therapies. She was in her normal state of health until yesterday when she became altered. Upon my exam, she is oriented to person and place. She denies pain. She denies shortness of breath. Source: patient, RN/MD Exam Limitations: clinical condition Date Seen 05/01/22 Time Seen by a Provider: 09:40 Attending Physician Josh Reyes MD PCP Admitting Physician: Nichole Almazan MD Attending Physician: Nichole Almazan MD Referring Physician Date of Admission Apr 30, 2022 at 15:53 Home Medications & Allergies Home Medications Reviewed patient Home Medication Reconciliation performed by pharmacy medication reconciliations manufacturing production technician and/or nursing. Patients Allergies have been reviewed. Allergies Allergies Coded Allergies bacitracin (Unverified Allergy, Unknown, HIVES, 09/22/13) lidocaine (Unverified Allergy, Unknown, HIVES, 09/22/13) neomycin (Unverified Allergy, Unknown, HIVES, 09/22/13) polymyxin B (Unverified Allergy, Unknown, HIVES, 09/22/13) pramoxine (Unverified Allergy, Unknown, HIVES, 09/22/13) Past Nxidtkp-Bthzrx-Wieqrv Hx Patient Social History Tobacco Use?: No Smoking Status: Never a Smoker Smokeless Tobacco Frequency: Unknown if Ever Used Use of E-Cig and/or Vaping dev: Unable to obtain Substance use?: Unable to obtain Alcohol Use?: No Pt feels they are or have been: Unable to obtain Immunizations Up To Date Date of Influenza Vaccine: Apr 05, 2021 First/Initial COVID19 Vaccinat: 12/2020 Second COVID19 Vaccination Mikey: 12/2020 Seasonal Allergies Seasonal Allergies: No Current Status Advance Directives: No Primary Language: Japanese Preferred Spoken Language: Japanese Past Medical History Surgeries: Appendectomy, Breast, Gallbladder, Hysterectomy COPD, Emphysema 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 History: Hysterectomy Kidney Stones, UTI-Chronic Arthritis, Fibromyalgia Cataract Hearing Impairment: Hard of Hearing Anxiety Blood Disorders: No Adverse Reaction/Blood Tranf: No Family Medical History Cancer 03 FATHER 03 MOTHER 09 BROTHER 09 SISTER Cancer of colon 09 SISTER Congenital heart disease 09 BROTHER Family history: Arthritis 03 FATHER 03 MOTHER 09 BROTHER 09 SISTER Family history: Asthma 09 SISTER Family history: Diabetes mellitus 09 BROTHER Family history: Gastrointestinal disease 03 FATHER 09 BROTHER Family history: Hypertension 03 MOTHER 09 BROTHER Heart disease 03 MOTHER 09 BROTHER History of - respiratory disease 03 FATHER 03 MOTHER 09 BROTHER Myocardial infarction 03 MOTHER Prostate cancer 03 FATHER 09 BROTHER Stroke 03 MOTHER No Family History of: Abdominal aortic aneurysm Alcoholism Congestive heart failure Dementia Family history: Allergy Family history: Alzheimer's disease Family history: Breast disease Family history: Cardiovascular disease Family history: Thyroid disorder History of - anemia Kidney disease Parkinson's disease Seizure disorder Cancer Review of Systems Constitutional: see HPI Physical Exam Physical Exam Vital Signs Vital Signs - First Documented 04/30/22 04/30/22 04/30/22 12:39 13:20 18:00 Temp 37.0 Pulse 107 Resp 22 B/P (MAP) 133/71 (91) Pulse Ox 92 O2 Delivery Room Air FiO2 21 Capillary Refill : Less Than 3 Seconds Height, Weight, BMI Height: 5'4.00" Weight: 125lbs. oz. 56.984895ro; 19.63 BMI Method:Stated General Appearance: No Apparent Distress, Chronically ill, Thin Respiratory: Lungs Clear, No Respiratory Distress Cardiovascular: Regular Rate, Rhythm, No Edema, No Murmur Gastrointestinal: Normal Bowel Sounds, Non Tender, Soft Extremity: Normal Inspection, No Pedal Edema Neurologic/Psychiatric: Alert, Normal Mood/Affect, Disoriented Skin: Normal Color, Warm/Dry Results Results/Procedures Labs Laboratory Tests 04/30/22 12:30 05/01/22 04:40 Patient resulted labs reviewed. Imaging: Reviewed Imaging Films, Reviewed Imaging Report Assessment/Plan Admission Diagnosis Sepsis due to UTI Admission Status: Inpatient Order (span 2 midnights) Reason for Inpatient Admission: IV antibiotics Assessment and Plan Severe sepsis UTI PNA Septic encephalopathy UA revealed UTI Urine culture pending Chest imaging with upper lobe pneumonia Zosyn IV fluids Parkinsons Dementia Depression Anxiety Resume home meds as able DVT prophylaxis: Lovenox Diagnosis/Problems Diagnosis/Problems (1) Severe sepsis Status: Acute (2) UTI (urinary tract infection) Status: Acute (3) PNA (pneumonia) Status: Acute (4) Septic encephalopathy Status: Acute (5) Parkinson disease Status: Chronic (6) Anxiety and depression Status: Chronic NICHOLE ALMAZAN MD May 01, 2022 14:27
[2022-05-01 15:31] VITALS: BP 120/56
[2022-05-01 19:24] VITALS: BP 122/61
[2022-05-02 00:06] VITALS: BP 133/62
[2022-05-02 04:16] VITALS: BP 165/72
[2022-05-02] MEDS: LACTATED RINGERS 1,000 ML IV SCH (05:07)
[2022-05-02 05:31] LABS: BASOPHILS % (AUTO) 0 % (0-10); EOSINOPHILS # (AUTO) 0.1 10^3/uL (0.0-0.3); EOSINOPHILS % (AUTO) 1 % (0-10); HEMATOCRIT 30 % (35-52); LYMPHOCYTES # (AUTO) 1.7 10^3/uL (1.0-4.0); LYMPHOCYTES % (AUTO) 17 % (12-44); MEAN CORPUSCULAR HEMOGLOBIN 29 pg (25-34); MEAN CORPUSCULAR HGB CONC 33 g/dL (32-36); MEAN CORPUSCULAR VOLUME 88 fL (80-99); MEAN PLATELET VOLUME 9.2 fL (9.0-12.2); MONOCYTES # (AUTO) 0.8 10^3/uL (0.0-1.0); MONOCYTES % (AUTO) 8 % (0-12); NEUTROPHILS # (AUTO) 7.3 10^3/uL (1.8-7.8); NEUTROPHILS % (AUTO) 73 % (42-75); PLATELET COUNT 362 10^3/uL (130-400)
[2022-05-02 05:49] LABS: POTASSIUM 3.4 MMOL/L (3.6-5.0)
[2022-05-02 05:54] LABS: CREATININE SERUM 0.55 MG/DL (0.60-1.30)
[2022-05-02 05:57] LABS: MAGNESIUM 1.9 MG/DL (1.6-2.4)
[2022-05-02] MEDS: PIPERACILLIN SODIUM/TAZOBACTAM 4.5 GM in NS (IVPB) 100 ML IV SCH (06:08)
--- NOTE | 2022-05-02 07:13 | Occupational Ther Daily Note ---
OT Current Status-Daily Note Mental Status/Objective Patient Orientation: Time, Situation ADL-Treatment Therapy Code Descriptions/Definitions Functional [place] Measure: 0=Not Assessed/NA 4=Minimal Assistance 1=Total Assistance 5=Supervision or Setup 2=Maximal Assistance 6=Modified [place] 3=Moderate Assistance 7=Complete IndependenceSCALE: Activities may be completed with or without assistive devices. 5-Vidsyutchs-nifpcpm completes the activity by him/herself with no assistance from a helper. 5-Set-up or Clean-up Assistance-helper sets up or cleans up; patient completes activity. [place] assists only prior to or following the activity. 4-Supervision or Touching Assistance-helper provides verbal cues and/or touchin g/steadying and/or contact guard assistance as patient completes activity. Assistance may be provided throughout the activity or intermittently. 3-Partial/Moderate Assistance-helper does LESS THAN HALF the effort. [place] lifts, holds or supports trunk or limbs, but provides less than half the effort. 2-Substantial/Maximal Assistance-helper does MORE THAN HALF the effort. [place] lifts or holds trunk or limbs and provides more than half the effort. 4-Wnkgcfhxq-kgpoml does ALL the effort. Patient does none of the effort to complete the activity. Or, the assistance of 2 or more helpers is required for the patient to complete the activity. If activity was not attempted, code reason: 7-Patient Refused. 9-Not Applicable-not attempted and the patient did not perform the activity before the current illness, exacerbation or injury. 10-Not Attempted due to Environmental Limitations-(lack of equipment, weather restraints, etc.). 88-Not Attempted due to Medical Conditions or Safety Concerns. OT Long-Term Goals Long-Term Goals Time Frame: May 23, 2022 Eating (QC): 4 Oral Hygiene (QC): 4 Toileting Hygiene (QC): 3 Shower/Bathe Self (QC): 3 Upper Body Dressing (QC): 4 Lower Body Dressing (QC): 3 On/Off Footwear (QC): 3 Additional Goals: 1-Demonstrate ADL Tasks, 2-Verbalize Understanding, 3-Improve Strength/Kiet 1=Demonstrate adherence to instructed precautions during ADL tasks. 2=Patient will verbalize/demonstrate understanding of assistive devices/modifications for ADL. 3=Patient will improve strength/tolerance for activity to enable patient to pe rform ADL's. OT Education/Plan Treatment Plan/Plan of Care Patient would benefit from OT for education, treatment and training to promote independence in ADL's, mobility, safety and/or upper extremity function for ADL's. Plan of Care: ADL Retraining, Cognitive Retraining, Functional Mobility, Group Exercise/Act as Ind, UE Funct Exercise/Act Treatment Duration: May 23, 2022 Frequency: 3 times per week (3-5 x/week) Estimated Hrs Per Day: .25 hour per day Agreement: Yes Rehab Potential: RAMYA Davenport May 02, 2022 07:13
[2022-05-02 07:42] VITALS: BP 144/74
[2022-05-02] MEDS: RT-ALBUTEROL/IPRATROPIUM 3 ML (DUONEB) VIAL INH SCH (08:04)
[2022-05-02] MEDS: DOCUSATE SODIUM 100 MG (COLACE) CAP PO SCH (08:40)
[2022-05-02] MEDS: LACTULOSE SYRUP 10GM/15ML (ENULOSE) 30ML UDC PO PRN ×2 (08:40→08:41)
[2022-05-02] MEDS: SINEMET 10/100 (CARBIDOPA/LEVADOPA) TAB PO SCH ×2 (08:40→12:45)
[2022-05-02] MEDS: SENNOSIDES 8.6 MG (SENOKOT) TAB PO SCH (08:40)
--- NOTE | 2022-05-02 08:58 | Physical Therapy Daily Note ---
PT Daily Note-Current Subjective Patient in bed with OT in room already treating, reports no pain, agrees to PT. Pain Section J - Health Conditions 1. Rarely or not at all 2. Occasionally 3. Frequently 4. Almost constantly 8. Unable to answer Pain Effect on Sleep: 1 Pain Interference with Therapy: 1 Pain Interference w/Day-to-Day: 1 Appearance Patient in recliner with chair alarm on, nurse call, nursing staff in the room, and all needs met. Mental Status Patient Orientation: Person, Confused Attachments: Diaz Catheter, IV Transfers SCALE: Activities may be completed with or without assistive devices. 4-Jrsmqwtrlj-yvqvmxz completes the activity by him/herself with no assistance from a helper. 5-Set-up or Clean-up Assistance-helper sets up or cleans up; patient completes activity. [place] assists only prior to or following the activity. 4-Supervision or Touching Assistance-helper provides verbal cues and/or touching/steadying and/or contact guard assistance as patient completes activity. Assistance may be provided throughout the activity or intermittently. 3-Partial/Moderate Assistance-helper does LESS THAN HALF the effort. [place] lifts, holds or supports trunk or limbs, but provides less than half the effort. 2-Substantial/Maximal Assistance-helper does MORE THAN HALF the effort. [place] lifts or holds trunk or limbs and provides more than half the effort. 4-Sztfzsicg-wepjyy does ALL the effort. Patient does none of the effort to complete the activity. Or, the assistance of 2 or more helpers is required for the patient to complete the activity. If activity was not attempted, code reason: 7-Patient Refused. 9-Not Applicable-not attempted and the patient did not perform the activity before the current illness, exacerbation or injury. 10-Not Attempted due to Environmental Limitations-(lack of equipment, weather restraints, etc.). 88-Not Attempted due to Medical Conditions or Safety Concerns. Lying to Sitting/Side of Bed(Q: 1 Sit to Stand (QC): 1 Chair/Wch-ix-Pbphe Xfer(QC): 1 Dependent Weight Bearing Right Lower Extremity: Right Weight Bearing/Tolerated Left Lower Extremity: Left Weight Bearing/Tolerated Exercises Seated Therapy Exercises: Long arc quads (Rougly 5 half reps on each leg) Treatments LE Strengthening Assessment Current Status: Poor Progress Patient unable to pick legs up or scoot legs across bed to go lying to sitting at edge of bed. Patient able to sustain sitting without help from others if placed in the correct position first. Sitting posture poor with moderate kyphosis and forward head. Patient dependent on transferring bed to recliner requiring at least one therapist to do all the work. Patient would only do a few reps of exercise before stopping completely. PT Snf Goals Snf Goals PT Snf Goals Time Frame: May 08, 2022 Roll Left & Right (QC): 3 Sit to Lying (QC): 3 Lying-Sitting on Side/Bed(QC): 3 Sit to Stand (QC): 3 Chair/Vna-jb-Haaru Xfer(QC): 3 Walk 10 feet (QC): 3 PT Plan Problem List Problem List: Activity Tolerance, Functional Strength, Safety, Balance, Gait, Transfer, Bed Mobility, ROM Treatment/Plan Treatment Plan: Continue Plan of Care Treatment Plan: Bed Mobility, Education, Functional Activity Kiet, Functional Strength, Gait, Safety, Therapeutic Exercise, Transfers Treatment Duration: May 08, 2022 Frequency: 6 times per week Estimated Hrs Per Day: .25 hour per day Patient and/or Family Agrees t: Yes Safety Risks/Education Patient Education: Transfer Techniques, Correct Positioning, Safety Issues Teaching Recipient: Patient Teaching Methods: Demonstration, Discussion Response to Teaching: Reinforcement Needed repetitive demonstration needed to start an exercise, unable to complete exercise or go full ROM. Time Time In: 825 Time Out: 837 Total Billed Treatment Time: 12 Total Billed Treatment 1 visit FA 12min DONNELL GARSIA PT May 02, 2022 08:58
--- NOTE | 2022-05-02 09:34 | Occupational Ther Daily Note ---
OT Current Status-Daily Note Subjective Pt in bed, alert. Pt agrees to therapy. Pt c/o no pain. Mental Status/Objective Patient Orientation: Person, Confused, Mumbles Attachments: Diaz Catheter, IV ADL-Treatment Attempted verbal and physical cues to have pt initiate sliding B LE to maneuver self to EOB, unable to follow simple directions. Pt required max Ax2 to transfer to EOB. Required max Ax2 to transfer from sit to stand and max Ax2 with verbal cues to pivot to recliner with FWW. Pt completed oral care with sponge after set up. Pt in recliner at end of session. Call light/phone in reach. All needs met in room. Safety measures in place. Therapy Code Descriptions/Definitions Functional [place] Measure: 0=Not Assessed/NA 4=Minimal Assistance 1=Total Assistance 5=Supervision or Setup 2=Maximal Assistance 6=Modified [place] 3=Moderate Assistance 7=Complete IndependenceSCALE: Activities may be completed with or without assistive devices. 2-Rjdmrqjkyz-qptfoyp completes the activity by him/herself with no assistance from a helper. 5-Set-up or Clean-up Assistance-helper sets up or cleans up; patient completes activity. [place] assists only prior to or following the activity. 4-Supervision or Touching Assistance-helper provides verbal cues and/or touching/steadying and/or contact guard assistance as patient completes activity. Assistance may be provided throughout the activity or intermittently. 3-Partial/Moderate Assistance-helper does LESS THAN HALF the effort. [place] lifts, holds or supports trunk or limbs, but provides less than half the effort. 2-Substantial/Maximal Assistance-helper does MORE THAN HALF the effort. [place] lifts or holds trunk or limbs and provides more than half the effort. 0-Yvhtfiabp-xfdhjc does ALL the effort. Patient does none of the effort to complete the activity. Or, the assistance of 2 or more helpers is required for the patient to complete the activity. If activity was not attempted, code reason: 7-Patient Refused. 9-Not Applicable-not attempted and the patient did not perform the activity before the current illness, exacerbation or injury. 10-Not Attempted due to Environmental Limitations-(lack of equipment, weather restraints, etc.). 88-Not Attempted due to Medical Conditions or Safety Concerns. Oral Hygiene (QC): 5 Other Treatment Pt participated in 5 reps of PROM shoulder flexion to L UE. OT Residential Goals Building Carpenter Helper Goals Time Frame: May 23, 2022 Eating (QC): 4 Oral Hygiene (QC): 4 Toileting Hygiene (QC): 3 Shower/Bathe Self (QC): 3 Upper Body Dressing (QC): 4 Lower Body Dressing (QC): 3 On/Off Footwear (QC): 3 Additional Goals: 1-Demonstrate ADL Tasks, 2-Verbalize Understanding, 3- ImproveStrength/Kiet 1=Demonstrate adherence to instructed precautions during ADL tasks. 2=Patient will verbalize/demonstrate understanding of assistive devices/m odifications for ADL. 3=Patient will improve strength/tolerance for activity to enable patient to perform ADL's. OT Education/Plan Problem List/Assessment Assessment: Decreased Activ Tolerance, Decreased Safety Aware, Decreased UE Strength, Dependent Transfers, Impaired Cognition, Impaired Coordination, Impaired Funct Balance, Impaired I ADL's, Impaired Self-Care Skills Discharge Recommendations Plan/Recommendations: Continue POC Treatment Plan/Plan of Care Patient would benefit from OT for education, treatment and training to promote independence in ADL's, mobility, safety and/or upper extremity function for ADL's. Plan of Care: ADL Retraining, Cognitive Retraining, Functional Mobility, Group Exercise/Act as Ind, UE Funct Exercise/Act Treatment Duration: May 23, 2022 Frequency: 3 times per week (3-5 x/week) Estimated Hrs Per Day: .25 hour per day Agreement: Yes Rehab Potential: Guarded Time/GCodes Start Time: 08:22 Stop Time: 08:38 Total Time Billed (hr/min): 16 Billed Treatment Time 1 visit-FA 1 (16 min) RAMYA STEPHEN May 02, 2022 09:34
[2022-05-02] MEDS ORDERED: SULF1TAB38 PO (10:24)
--- NOTE | 2022-05-02 10:27 | Discharge Inst-Skilled Nursing ---
Discharge Inst-Skilled NF Reconcile Patient Problems Problems Reviewed?: Yes Patient Instructions Patient Instructions: Take medications as prescribed. Follow up with your PCP. Return with worsening confusion, weakness, or if you feel like you are getting worse. Consult/Follow Up/Orders Follow Up Appt.: [facility] snf rounds Skilled NF Admit to: [facility] Emergency Department Certification (SNF) I certify that SNF services are required to be given on an inpatient basis because of the above named patient's need for nursing home care on a continuing basis for the conditions(s) for which he/she was receiving inpatient hospital services prior to his/her transfer to the [facility]. Detention Facility Order: Nursing Services, [place] Painter-Evaluate & Treat, Physical Therapy-Evaluate & Treat, Speech Language-Evaluate & Treat Oxygen Delivery Method: Room Air Discharge Diet: Other Diet (mechanical soft diet, thin liquids) Daily Activity as Tolerated: Yes Resuscitation Status: Do Not Resuscitate New & Resume Previous Orders Ingrid Almazan May 02, 2022 10:25 INGRID ALMAZAN MD May 02, 2022 10:27
[2022-05-02 11:15] VITALS: BP 116/67
--- NOTE | 2022-05-02 11:36 | ST Dysphagia Evaluation ---
Speech Evaluation-General Medical Diagnosis AMS, sepsis Onset Date: Apr 30, 2022 Therapy Diagnosis Therapy Diagnosis: Oral Dysphagia Precautions Precautions: Fall, Aspiration Precautions/Isolations: Aspiration, Fall Prevention, Standard Precautions Referral Referring Physician: Dr. Snyder Reason for Referral: Evaluation/Treatment Medical History Pertinent Medical History: Arthritis, COPD, Parkinson's Current History The tiffany is a 81 year-old female with a past medical history of COPD, emphysema, arthritis, fibromylagia, anxiety, and UTI, who presented to the ED with altered mental status. Reviewed History: Yes Speech PLF/Current-Dysphagia Prior Level of Function The patient was unable to provide information to the clinician regarding her prior level of P.O. intake due to her current cognitive function. Subjective The patient was seated upright in her recliner, awake and alert, upon entrance to her room by the clinician. The patient greeted the clinician appropriately and was agreeable to participation in the clinical bedside swallowing evaluation. The patient appears significantly hard of hearing, therefore, elevated vocal intensities were used by the clinician for communication. Cognitive Status Patient Orientation: Confused Oral Motor Skills Dentition: Edentalous Ability to Follow Directions: Fair Oral Expression Ability: Moderate Impairment Voice Voice Phonatory-Based Quality: Normal Voice Pitch: Normal Voice Loudness: Normal Face Facial Symmetry: Symmetrical Oral-Facial Assessment Oral-Facial Dentition: Normal Labial Seal Description: Normal Smile: Normal Lingual Protrusion: Normal Lingual ROM: Normal Lingual Strength: Normal Volitional Dry Swallow: Yes Voluntary Cough: Yes Can Clear Throat Volitionally: Yes Productive Cough: Yes Productive Throat Clear: Yes Dysphagia Evaluation Consistencies Presented: Regular, Thin Liquid, Mechanical Soft, Pureed Oral Phase: Unable to Form Bolus (Solid consistencies, only.) The patient demonstrated appropriate oral acceptance of all consistencies presented via teaspoon and straw. Anterior spillage was not present with any consistency tested. The patient displayed increased mastication time with the solid consistency and difficulty with bolus formation. Once a puree was presented, the patient displayed improved mastication time and bolus formation ( soft solid consistency). Laryngeal elevation was present to palpation. The patient does not display s/s of suspected aspiration with thin liquids (via teaspoon or straw), puree, soft solid, or solid. Dietary Recommendations: Mechanical Soft (Dysphagia Two.) Liquid Recommendations: Thin Recommendations: - Dysphagia two (MM5) with thin liquids, as tolerated. - Fully upright and alert for P.O. intake. - Meal set-up and assistance, as needed. - Small bites and sips. - Monitor for s/s of suspected aspiration with P.O. intake. If demonstrated, contact speech pathology. The results and recommendations were provided to the patient and the patient's RN. Once dentures are present, the patient may be appropriate for upgrade to a regular consistency diet. Per RN, the patient will return to her facility on this date. Due to this, Speech Pathology will discharge the patient from services at this time. Dysphagia Evaluation Summary The patient demonstrated mild oral dysphagia characterized by prolonged mastication of solid consistencies. No overt s/s of suspected aspiration were demonstrated with thin liquids, puree, or soft solid consistencies tested. Speech-Plan Treatment Plan Speech Therapy Treatment Plan: Discontinue ST Treatment Duration: May 02, 2022 Frequency: 1 time per week Estimated Hrs Per Day: .25 hour per day Rehab Potential: Guarded Safety Risks/Education Teaching Recipient: Patient Teaching Methods: Discussion Response to Teaching: Reinforcement Needed Education Topics Provided: Results, Recommendations, Plan of Care Time Speech Therapy Time In: 10:00 Speech Therapy Time Out: 10:20 Total Billed Time: 20 Billed Treatment Time 1, MEGAN DYST DEJAH Mcgowan May 02, 2022 11:36
[2022-05-02 13:40] VITALS: BP 116/67
== END 2022-05-02 13:35 | DRG 871 ==
LOC: EDUNIT# 12:37 → ER 12:38 → ICU 15:53 → 4TH 05-01 12:49
PROVIDERS: ADMIT Internal Medicine; ATTEND Internal Medicine
DX: A41.9 Sepsis, unspecified organism (principal); G93.41 Metabolic encephalopathy; J18.9 Pneumonia, unspecified organism; N39.0 Urinary tract infection, site not specified; E87.1 Hypo-osmolality and hyponatremia; G20 Parkinson's disease; F02.80 Dementia in other diseases classified elsewhere, unspecified severity, without behavioral disturbance, psychotic disturbance, mood disturbance, and anxiety; F32.A Depression, unspecified; F41.9 Anxiety disorder, unspecified; R65.20 Severe sepsis without septic shock; J43.9 Emphysema, unspecified; M19.90 Unspecified osteoarthritis, unspecified site; M79.7 Fibromyalgia; Z86.16 Personal history of COVID-19; D64.9 Anemia, unspecified
CPT/HCPCS: 36415; 70450; 71045; 72125; 80048; 80053; 81000; 82040; 82310; 82805; 83605; 83735; 84145; 84155; 84443; 84484; 85007; 85025; 85027; 85610; 85730; 87040; 87081; 87088; 93005; 94640

== ENCOUNTER 2022-05-03 18:04 | Emergency (ER) | payer MEDICARE, MEDICAID ==
[~2022-05-03 18:04] MED LIST changes: +ACET325T38 PO; +DOCU100C37 PO; +POLY17PO6 PO; +SULF1TAB38 PO
--- NOTE | 2022-05-03 18:21 | ED Head Injury ---
General Chief Complaint: Trauma-Non Activation Stated Complaint: FALL Nursing Triage Note: PT BROUGHT IN BY [facility] FROM [facility] WITH COMPLAINT OF UNWITNESSED FALL. PER NH PT WAS FOUND ON FLOOR AT 1720. EMS STATES ON THEIR ARRIVAL, PT WAS AT THE SUPPER TABLE EATING. PT IS COMPLAINING OF HEADPAIN. STATES SHE WAS REACHING FOR HER DENTURES AND FELL. Source: patient, EMS Exam Limitations: no limitations History of Present Illness Date Seen by Provider: May 03, 2022 Time Seen by Provider: 18:10 Initial Comments Patient is a 81-year-old female who presents to the emergency department via EMS after she had an unwitnessed fall at the [facility] where she resides. Patient states she remembers falling backwards and hitting the back of her head on the floor. She denies any loss of consciousness. EMS state patient was eating her dinner when they arrived. EMS state patient has been stable and was answering all questions appropriately. Patient's only complaint at this time is some swelling to her occipital scalp as well as some pain in the same area. She denies any neck pain. Denies any chest pain, shortness of air, diaphoresis, or focal neurologic symptoms. Patient states she had a similar fall in the past. Occurred: just prior to arrival Allergies and Home Medications Allergies Coded Allergies: bacitracin (Unverified Allergy, Unknown, HIVES, 09/22/13) lidocaine (Unverified Allergy, Unknown, HIVES, 09/22/13) neomycin (Unverified Allergy, Unknown, HIVES, 09/22/13) polymyxin B (Unverified Allergy, Unknown, HIVES, 09/22/13) pramoxine (Unverified Allergy, Unknown, HIVES, 09/22/13) Patient Home Medication List Home Medication List Reviewed: Yes Acetaminophen (Tylenol) 325 Mg Tablet, 650 MG PO Q6H PRN for PAIN-MILD (1-4), (Reported) Entered as Reported by: MELISA HYDE on 05/01/22 1027 Alprazolam (Alprazolam) 0.5 Mg Tablet, 0.5 MG PO Q12H, (Reported) Entered as Reported by: MELISA HYDE on 05/01/22 1027 Carbidopa/Levodopa (Carbidopa-Levodopa 10-100 Tab) 10 Mg-100 Mg Tablet, 1 EACH PO TIDWM, (Reported) Entered as Reported by: MELISA HYDE on 05/01/22 1027 Docusate Sodium (Docusate Sodium) 100 Mg Capsule, 100 MG PO DAILY, (Reported) Entered as Reported by: MELISA HYDE on 05/01/22 1027 Duloxetine HCl (Duloxetine HCl) 60 Mg Capsule.dr, 60 MG PO DAILY, (Reported) Entered as Reported by: MELISA HYDE on 05/01/22 1027 Hydrocodone/Acetaminophen (Hydrocodone-Acetamin 5-325 mg) 5 Mg-325 Mg Tablet, 1 TAB PO QID PRN for PAIN-MODERATE (5-7), (Reported) Entered as Reported by: MELISA HYDE on 05/01/22 1027 Polyethylene Glycol 3350 (Miralax) 17 Gram Powd.pack, 17 GM PO HS PRN for CONSTIPATION-2ND LINE, (Reported) Entered as Reported by: MELISA HYDE on 05/01/22 1027 Sulfamethoxazole/Trimethoprim (Bactrim Ds Tablet) 1 Each Tablet, 1 EACH PO BID Prescribed by: NICHOLE ALMAZAN on 05/02/22 1024 Discontinued Medications Alprazolam (Alprazolam) 0.5 Mg Tablet, 0.5 MG PO BID PRN for ANXIETY Discontinued Reason: No Longer Taking Prescribed by: LAKSHMI HENDRIX on 04/24/22 1401 Carbidopa/Levodopa (Carbidopa-Levodopa 10-100 Tab) 10 Mg-100 Mg Tablet, 1 EA PO TIDWM Discontinued Reason: No Longer Taking Prescribed by: LAKSHMI HENDRIX on 04/23/22 1028 Docusate Sodium (Stool Softener) 100 Mg Capsule, 100 MG PO DAILY PRN for CONSTIPATION-1ST LINE Discontinued Reason: No Longer Taking Prescribed by: LAKSHMI HENDRIX on 04/24/22 1400 Duloxetine HCl (Duloxetine HCl) 60 Mg Capsule.dr, 60 MG PO DAILY Discontinued Reason: No Longer Taking Prescribed by: LAKSHMI HENDRIX on 04/24/22 1400 Hydrocodone/Acetaminophen (Hydrocodone-Acetamin 5-325 mg) 5 Mg-325 Mg Tablet, 1 EACH PO QID PRN for PAIN-BREAKTHROUGH Discontinued Reason: No Longer Taking Prescribed by: LAKSHMI HENDRIX on 04/24/22 1401 Review of Systems Review of Systems Constitutional: no symptoms reported Eyes: No Symptoms Reported Ears, Nose, Mouth, Throat: no symptoms reported Respiratory: no symptoms reported Cardiovascular: no symptoms reported Gastrointestinal: no symptoms reported Genitourinary: no symptoms reported Musculoskeletal: no symptoms reported Skin: no symptoms reported Psychiatric/Neurological: Headache Past Wyucfrg-Mxaykr-Bjmusp Hx Patient Social History Tobacco Use?: No Smoking Status: Former Smoker Use of E-Cig and/or Vaping dev: No Substance use?: No Alcohol Use?: No Pt feels they are or have been: No Immunizations Up To Date Tetanus Booster (TDap): Less than 5yrs First/Initial COVID19 Vaccinat: 12/2020 Second COVID19 Vaccination Mikey: 12/2020 Third COVID19 Vaccination Date: NO Seasonal Allergies Seasonal Allergies: No Past Medical History Surgery/Hospitalization HX: SPINAL YIFAN, BREAST LUMPECTOMY, HYSTERECTOMY, APPY Surgeries: Yes (BREAST LUMPECTOMY/ YIFAN IN C SPINE) Appendectomy, Breast, Gallbladder, Hysterectomy Respiratory: Yes COPD, Emphysema Cardiac: No Neurological: No Reproductive Disorders: No 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: Hysterectomy Kidney Stones, UTI-Chronic Gastrointestinal: No Musculoskeletal: Yes (ARTHRITIS, CERVICAL STENOSIS) Arthritis, Fibromyalgia Endocrine: No Cataract Hearing Impairment: Hard of Hearing Cancer: No Psychosocial: Yes Anxiety Integumentary: No Blood Disorders: No Adverse Reaction/Blood Tranf: No Family Medical History Cancer 03 FATHER 03 MOTHER 09 BROTHER 09 SISTER Cancer of colon 09 SISTER Congenital heart disease 09 BROTHER Family history: Arthritis 03 FATHER 03 MOTHER 09 BROTHER 09 SISTER Family history: Asthma 09 SISTER Family history: Diabetes mellitus 09 BROTHER Family history: Gastrointestinal disease 03 FATHER 09 BROTHER Family history: Hypertension 03 MOTHER 09 BROTHER Heart disease 03 MOTHER 09 BROTHER History of - respiratory disease 03 FATHER 03 MOTHER 09 BROTHER Myocardial infarction 03 MOTHER Prostate cancer 03 FATHER 09 BROTHER Stroke 03 MOTHER No Family History of: Abdominal aortic aneurysm Alcoholism Congestive heart failure Dementia Family history: Allergy Family history: Alzheimer's disease Family history: Breast disease Family history: Cardiovascular disease Family history: Thyroid disorder History of - anemia Kidney disease Parkinson's disease Seizure disorder Cancer Physical Exam Vital Signs Vital Signs - First Documented 05/03/22 18:06 Temp 36.6 Pulse 82 Resp 16 B/P (MAP) 137/78 (97) Pulse Ox 97 O2 Delivery Room Air Capillary Refill : Less Than 3 Seconds Height, Weight, BMI Height: 5'4.00" Weight: 125lbs. oz. [id number]; 19.74 BMI Method:Stated General Appearance: WD/WN, no apparent distress HEENT: PERRL/EOMI, normal ENT inspection, TMs normal, pharynx normal Neck: non-tender, full range of motion, supple, normal inspection Cardiovascular: regular rate, rhythm Respiratory: chest non-tender, lungs clear, normal breath sounds, no respiratory distress, no accessory muscle use Gastrointestinal: normal bowel sounds, non tender, soft Back: normal inspection, no vertebral tenderness Extremities: normal range of motion, non-tender, normal inspection, no pedal edema, no calf tenderness Skin: normal color, warm/dry Patient does have a small hematoma to the occipital scalp without underlying step-off or crepitus [place] Coma Score Best Eye Response: (4) Open Spontaneously Best Verbal Response: (5) Oriented Best Motor Response: (6) Obeys Commands [place] Total: 15 Progress/Results/Core Measures Results/Orders My Orders Orders - ARTHUR DYER APRN Ct Head Wo (05/03/22 18:16) Vital Signs/I&O 05/03/22 05/03/22 18:06 20:06 Temp 36.6 36.6 Pulse 82 90 Resp 16 16 B/P (MAP) 137/78 (97) 150/74 Pulse Ox 97 96 O2 Delivery Room Air Room Air Blood Pressure Mean: 97 Progress Progress Note : Progress Note Patient is nontoxic and well-hydrated on exam. Vital signs are reassuring. No focal neurologic deficits appreciated. Patient answering all questions appropriately. CT of the head is acutely negative. Primary and secondary surveys are otherwise unremarkable patient has no complaints outside of the pain in her occipital head. Will discharge home with recommendations for follow-up with PCP. Return precautions for symptomology discussed. Patient and family verbalized understanding. Departure Impression Primary Impression: Fall Qualified Codes: W19.XXXA - Unspecified fall, initial encounter Additional Impressions: Hematoma of occipital region of scalp Closed head injury Qualified Codes: S09.90XA - Unspecified injury of head, initial encounter Disposition: 01 HOME, SELF-CARE Condition: Stable Departure-Patient Inst. Decision time for Depature: 19:45 Referrals: GUILLERMINA BOOTH MD (PCP/Family) Primary Care Physician Patient Instructions: Closed Head Injury (DC) ARTHUR DYER APRN May 03, 2022 18:21
--- NOTE | 2022-05-03 19:14 | Diagnostic Imaging Report ---
INDICATION: Fall, head pain, occipital hematoma TECHNIQUE: Routine non contrast-enhanced axial images were obtained from the skull base to the vertex. Auto Exposure Controls were utilized during the CT exam to meet ALARA standards for radiation dose reduction COMPARISON: 04/30/2022. FINDINGS: The ventricles and cortical sulci are diffusely prominent, compatible with age-related volume loss. There are confluent areas of abnormal, low attenuation in the periventricular white matter. This is consistent with chronic small vessel ischemic changes. There is no midline shift or mass-effect. No acute intra-axial hemorrhage is seen. There is no abnormal area of increased or decreased density to suggest acute hemorrhage or edema. No extra-axial mass or collection is present. Small soft tissue hematoma is noted posteriorly on the left. The underlying bony calvarium is intact. The visualized paranasal sinuses show air-fluid level within the left maxillary sinus as well as opacification of the anterior left ethmoid air cells and left frontal sinus. The mastoid air cells are also opacified on the left. IMPRESSION: 1. No acute intracranial abnormality. No CT evidence of mass, acute infarct or intracranial hemorrhage. 2. Chronic small vessel ischemic changes in the deep white matter. 3. Left paranasal sinus and mastoid air cell disease. Please correlate for sinusitis/mastoiditis. Dictated by: Dictated on workstation # [id number]
[2022-05-03 20:06] VITALS: BP 150/74
== END 2022-05-03 21:17 | disposition home or self-care (01) ==
LOC: EDUNIT# 18:04 → ER 18:05
DX: S09.90XA Unspecified injury of head, initial encounter (principal); S00.03XA Contusion of scalp, initial encounter; Z87.891 Personal history of nicotine dependence; W18.30XA Fall on same level, unspecified, initial encounter; W22.8XXA Striking against or struck by other objects, initial encounter
CPT/HCPCS: 70450